=== PATIENT | male | born 1940 | race Caucasian/White ===

== ENCOUNTER 2017-03-23 02:55 | Inpatient (IN) | payer MEDICARE, OTHER ==
[2017-03-23] MEDS ORDERED: IPRATROPIUM/ALBUTEROL 0.5-2.5 MG/3 ML AMPUL NEB ONE (03:20)
[2017-03-23] MEDS ORDERED: METHYLPREDNISOLONE INJ 125 MG/2 ML SDV IV ONE (03:24)
--- NOTE | 2017-03-23 03:44 | RADIOLOGY REPORT (SQ) ---
EXAM DESCRIPTION: CHEST SINGLE VIEW COMPLETED DATE/TIME: 03/23/2017 3:33 am REASON FOR STUDY: difficulty breathing COMPARISON: None. EXAM PARAMETERS: NUMBER OF VIEWS: One view. TECHNIQUE: 2 frontal radiographic views of the chest acquired. RADIATION DOSE: NA LIMITATIONS: None. FINDINGS: LUNGS AND PLEURA: There is elevation of the left hemidiaphragm with ground-glass opacity a t the left lung base. No sizable pleural effusion or pneumothorax. MEDIASTINUM AND HILAR STRUCTURES: No obvious masses. HEART AND VASCULAR STRUCTURES: The heart is upper normal limit in size. No overt vascular congestion . BONES: Degenerative changes in the spine. HARDWARE: Surgical clips are noted at the right upper hemithorax and overlying the left clavicle. IMPRESSION: Elevation of the left hemidiaphragm with ground-glass opacity at the left lung base, may represent atelectasis or pneumonia. Radiographic followup recommended. TECHNICAL DOCUMENTATION: JOB ID: [id number] [employer]- All Rights Reserved
--- NOTE | 2017-03-23 03:51 | ER Document Report ---
ED General - General Chief Complaint: Respiratory Distress Stated Complaint: DIFFICULTY BREATHING Time Seen by Provider: 03/23/17 03:14 Notes: Patient is a 77-year-old male who presents with complaint of difficulty breathing or respiratory distress. Patient has a history of idiopathic pulmonary fibrosis. Patient says over last several days has had worsening difficulty breathing also has had subjective fevers. No vomiting. No chest pain. No diarrhea. No abdominal pain. He does still smoke. No other complaints at this time. Wears 4 L of oxygen via nasal cannula at home. He does not wear CPAP at night. He did receive breathing treatments via EMS the patient says it does not seem to make much difference in his breathing. - Related Data Allergies/Adverse Reactions: No Known Allergies Allergy (Unverified 04/30/11 14:54) Past Medical History - Social History Smoking Status: Current Every Day Smoker Frequency of alcohol use: None Drug Abuse: None Family History: Reviewed & Not Pertinent Patient has suicidal ideation: No Patient has homicidal ideation: No - Past Medical History Cardiac Medical History: Reports: Hx Hypertension Renal/ Medical History: Denies: Hx Peritoneal Dialysis Past Surgical History: Reports: Hx Orthopedic Surgery - C-Spine fusion - Immunizations Hx Diphtheria, Pertussis, Tetanus Vaccination: No Review of Systems - Review of Systems Notes: My Normal Review Basic REVIEW OF SYSTEMS: CONSTITUTIONAL : Negative fevers. EENT: Denies eye, ear, throat, or mouth pain or symptoms. Denies nasal or sinus congestion. CARDIOVASCULAR: Denies chest pain. RESPIRATORY: Difficulty breathing. GASTROINTESTINAL: Denies abdominal pain. Denies nausea, vomiting, or diarrhea. Denies constipation. Last BM: GENITOURINARY: Denies difficulty urinating, painful urination, burning, frequency, or blood in urine. MUSCULOSKELETAL: Denies neck or back pain or joint pain or swelling. SKIN: Denies rash or skin lesions. NEUROLOGICAL: Denies altered mental status or loss of consciousness. Denies headache. Denies weakness or paralysis or loss of use of either side. Denies problems with gait or speech. Denies sensory or motor loss. ALL OTHER SYSTEMS REVIEWED AND NEGATIVE. Physical Exam - Vital signs Vitals: Resp Pulse Ox 21 H 98 03/23/17 03:09 03/23/17 03:09 - Notes Notes: General Appearance: Well nourished, alert, cooperative, moderate acute distress , no obvious discomfort. Vitals: reviewed, See vital signs table. Head: no swelling or tenderness to the head Eyes: PERRL, EOMI, Conjuctiva clear Mouth: No decreasd moisture Throat: No tonsillar inflammation, Neck: Supple, no neck tenderness, Lungs: Patient has good air exchange with no wheezing but does have some mild rhonchorous breath sounds in the bases jesting pneumonia. Heart: Normal rate, Regular rythm, No murmur, no rub Abdomen: Normal BS, soft, No rigidity, No abdominal tenderness, No guarding, no rebound, Extremities: strength 5/5 in all extremities, good pulses in all extremities, no swelling or tenderness in the extremities, no edema. Skin: warm, dry, appropriate color, no rash Neuro: speech clear, oriented x 3, normal affect, responds appropriately to questions. Course - Re-evaluation Re-evalutation: 03/23/17 05:09 Patient looks well on the BiPAP. He is much improved and feels much better on BiPAP. He speaking full sentences now. Chest x-ray shows evidence of pneumonia. This is consistent with his physical exam findings. I did speak with the hospitalist, Dr. Curran, who agrees to admit the patient. Dictation of this chart was performed using voice recognition software; therefore, there may be some unintended grammatical errors. - Vital Signs Vital signs: Temp Pulse Resp BP Pulse Ox 98.6 F 31 H 160/79 H 97 03/23/17 03:17 03/23/17 04:01 03/23/17 04:01 03/23/17 04:01 - Laboratory Result Diagrams: 03/23/17 03:50 03/23/17 03:50 Laboratory results interpreted by me: 03/23/17 03:50 WBC 28.2 H RBC 3.62 L Hgb 12.6 L Hct 37.6 L MCV 104 H MCH 34.9 H RDW 16.1 H Seg Neuts % (Manual) 91 H Lymphocytes % (Manual) 4 L Monocytes % (Manual) 1 L Abs Neuts (Manual) 26.5 H - EKG Interpretation by Me Additional EKG results interpreted by me: 03/23/17 03:50 EKG is reviewed and interpreted by me. EKG shows sinus tachycardia with rate of [address] segment elevation or depression. No ischemic T-wave inversions. NE interval, QRS duration, QTc intervals are within normal range. No old EKG available for comparison at this time. Discharge - Discharge Clinical Impression: Pneumonia Qualifiers: Pneumonia type: due to unspecified organism Laterality: bilateral Lung location : unspecified part of lung Qualified Code(s): J18.9 - Pneumonia, unspecified organism Disposition: ADMITTED INPATIENT Admitting Provider: Hospitalist Unit Admitted: Telemetry
[2017-03-23 04:05] LABS: HEMATOCRIT 37.6 % (37.9-51.0); HEMOGLOBIN 12.6 g/dL (13.5-17.0); MEAN CORPUSCULAR HEMOGLOBIN 34.9 pg (27.0-33.4); MEAN CORPUSCULAR HGB CONC 33.6 g/dL (32.0-36.0); MEAN CORPUSCULAR VOLUME 104 fl (80-97); PLATELET COUNT 185 10^3/uL (150-450); RED BLOOD COUNT 3.62 10^6/uL (4.35-5.55); RED CELL DISTRIBUTION WIDTH 16.1 % (11.5-14.0); WHITE BLOOD COUNT 28.2 10^3/uL (4.0-10.5)
[2017-03-23 04:34] LABS: ALANINE AMINOTRANSFERASE 25 U/L (21-72); ALBUMIN 4.2 g/dL (3.5-5.0); ALKALINE PHOSPHATASE 78 U/L (38-126); ANION GAP 17 (5-19); ASPARTATE AMINO TRANSFERASE 32 U/L (17-59); BILIRUBIN,DIRECT 0.3 mg/dL (0.0-0.4); BILIRUBIN,TOTAL 1.1 mg/dL (0.2-1.3); BLOOD UREA NITROGEN 10 mg/dL (7-20); CARBON DIOXIDE 22 mmol/L (22-30); CHLORIDE 104 mmol/L (98-107); GLUCOSE 86 mg/dL (75-110); POTASSIUM 4.1 mmol/L (3.6-5.0); SODIUM 142.5 mmol/L (137-145); TOTAL PROTEIN 7.3 g/dL (6.3-8.2)
[2017-03-23 04:35] LABS: ABSOLUTE LYMPHOCYTES# (MANUAL) 1.4 10^3/uL (0.5-4.7); ABSOLUTE MONOCYTES # (MANUAL) 0.3 10^3/uL (0.1-1.4); ABSOLUTE NEUTROPHILS# (MANUAL) 26.5 10^3/uL (1.7-8.2); BAND NEUTROPHILS % (MANUAL) 3 % (3-5); BASOPHILS % (MANUAL) 0 % (0-2); EOSINOPHILS % (MANUAL) 0 % (0-6); LYMPHOCYTES % (MANUAL) 4 % (13-45); MONOCYTES % (MANUAL) 1 % (3-13); NUCLEATED RED BLOOD CELLS 1 /100 WBC (0); SEGMENTED NEUTROPHILS % (MAN) 91 % (42-78); TOTAL CELLS COUNTED 100
[2017-03-23 04:37] LABS: ANISOCYTOSIS 1+; OVALOCYTES SLIGHT; PLATELET COMMENT ADEQUATE; POIKILOCYTOSIS SLIGHT; STOMATOCYTES 1+; TOXIC GRANULATION 1+; TOXIC VACUOLATION PRESENT
[2017-03-23] MEDS ORDERED: PIPERACILLIN/TAZOBACTAM 3.375 GM VIAL IV ONE (04:57)
[2017-03-23] MEDS ORDERED: VANCOMYCIN HCL INJ 1000 MG VIAL IV ONE (04:58)
[2017-03-23] MEDS ORDERED: IPRATROPIUM/ALBUTEROL 0.5-2.5 MG/3 ML AMPUL NEB PRN (05:01)
[2017-03-23] MEDS ORDERED: ACETAMINOPHEN 325 MG TABLET PO PRN (05:01)
[2017-03-23] MEDS ORDERED: CHLORPHENIRAMINE MALEATE 4 MG TABLET PO ONE ×2 (05:04→09:00)
[2017-03-23] MEDS ORDERED: HYDRALAZINE HCL INJ/PF 20 MG/1 ML SDV IV PRN (05:04)
[2017-03-23] MEDS ORDERED: VANCOMYCIN HCL 0 MG in DEXTROSE 5%-WATER 250 ML IV NR (05:15)
[2017-03-23] MEDS ORDERED: NORMAL SALINE 1000 ML 1,000 ML IV PRN (05:15)
[2017-03-23] MEDS ORDERED: PIPERACILLIN/TAZOBACTAM 4.5 GM VIAL IV PRN (05:34)
[2017-03-23] MEDS ORDERED: PIPERACILLIN SODIUM/TAZOBACTAM 4.5 GM in NORMAL SALINE 100 ML IV ONE (05:45)
[2017-03-23] MEDS ORDERED: FLUTICASONE NASAL SPRAY 50 MCG/SPRY 120 SPRAY/16 GM NASL ONE (05:45)
[2017-03-23] MEDS ORDERED: DILTIAZEM HCL 60 MG TABLET PO ONE (05:49)
--- NOTE | 2017-03-23 06:08 | PDOC H&P ---
History of Present Illness Admission Date/PCP: 03/23/17 05:12 Patient complains of: Shortness of breath and nonproductive cough History of Present Illness: KEO SESAY is a 77 year old male with past medical history of chronic lower extremity venous stasis, idiopathic pulmonary fibrosis with oxygen dependence and tobacco dependence. Patient presents with several days of rhinorrhea developing shortness of breath, subjective fever and nonproductive cough. In the emergency room is found to be tachypneic, hypoxic requiring 4 L of oxygen, leukocytosis of 26,000, fever and chest x-ray with left base infiltrate. He started on empiric antibiotics, albuterol and Atrovent and referred to the hospitalist for admission. Patient denies recent pneumonia, antibiotics or infectious contacts. He denies recent change of medications. Past Medical History Cardiac Medical History: Reports: Hypertension Pulmonary Medical History: Reports: Other - Pulmonary fibrosis EENT Medical History: Reports: None Neurological Medical History: Reports: None Endocrine Medical History: Reports: None Renal/ Medical History: Reports: None Malignancy Medical History: Reports: None GI Medical History: Reports: None Musculoskeltal Medical History: Reports: None Skin Medical History: Reports: None Psychiatric Medical History: Reports: None Traumatic Medical History: Reports: None Hematology: Reports: None Infectious Medical History: Reports: None Past Surgical History Past Surgical History: Reports: Orthopedic Surgery - C-Spine fusion Social History Information Source: Patient Smoking Status: Current Every Day Smoker Frequency of Alcohol Use: None Hx Recreational Drug Use: No Hx Prescription Drug Abuse: No - Advance Directive Resuscitation Status: Full Code Family History Family History: Hypertension Parental Family History Reviewed: Yes Children Family History Reviewed: Yes Sibling(s) Family History Reviewed.: Yes Medication/Allergy Home Medications: Alfuzosin HCl [Uroxatral] 10 mg PO DAILY 04/30/11 Alprazolam [Xanax] 1 mg PO BID 04/30/11 Amlodipine Besylate [Norvasc 2.5 mg Tablet] 2.5 mg PO DAILY 04/30/11 Aripiprazole [Abilify] 10 mg PO BID 04/30/11 Aspirin [Aspirin 81 mg Chewable Tablet] 81 mg PO DAILY 04/30/11 Benazepril HCl [Lotensin 10 Mg Tablet] 10 mg PO DAILY 04/30/11 Calcium Citrate/Vitamin D3 [Calcium Citrate - Vit D Caplet] 1 each PO DAILY 12/31 Cyclobenzaprine HCl [Flexeril 10 Mg Tablet] 10 mg PO DAILY 04/30/11 Ergocalciferol (Vitamin D2) [Vitamin D] 50,000 unit PO ONCE 04/30/11 Escitalopram Oxalate [Lexapro] 20 mg PO DAILY 04/30/11 Fesoterodine Fumarate [Toviaz] 8 mg PO DAILY 04/30/11 Finasteride 5 mg PO DAILY 04/30/11 Lidocaine [Lidoderm 5% (700 Mg) Transdermal Patch] 1 patch TP DAILY 04/30/11 Oxycodone HCl/Acetaminophen [Percocet 7.5-325 Mg Tablet] 1 each PO Q4 PRN Primidone 50 mg PO BID 04/30/11 Allergies/Adverse Reactions: No Known Allergies Allergy (Unverified 04/30/11 14:54) Review of Systems Constitutional: ABSENT: chills, fever(s), headache(s), weight gain, weight loss Eyes: ABSENT: visual disturbances Ears: ABSENT: hearing changes Cardiovascular: ABSENT: chest pain, dyspnea on exertion, edema, orthropnea, palpitations Respiratory: ABSENT: cough, hemoptysis Gastrointestinal: ABSENT: abdominal pain, constipation, diarrhea, hematemesis, hematochezia, nausea, vomiting Genitourinary: ABSENT: dysuria, hematuria Musculoskeletal: ABSENT: joint swelling Integumentary: ABSENT: rash, wounds Neurological: ABSENT: abnormal gait, abnormal speech, confusion, dizziness, focal weakness, syncope Psychiatric: ABSENT: anxiety, depression, homidical ideation, suicidal ideation Endocrine: ABSENT: cold intolerance, heat intolerance, polydipsia, polyuria Hematologic/Lymphatic: ABSENT: easy bleeding, easy bruising Physical Exam Vital Signs: Temp Pulse Resp BP Pulse Ox 98.6 F 31 H 160/79 H 97 03/23/17 03:17 03/23/17 04:01 03/23/17 04:01 03/23/17 04:01 General appearance: PRESENT: cooperative, mild distress, obese Head exam: PRESENT: atraumatic, normocephalic Eye exam: PRESENT: conjunctiva pink, EOMI, PERRLA. ABSENT: scleral icterus Ear exam: PRESENT: normal external ear exam Mouth exam: PRESENT: moist, tongue midline Neck exam: ABSENT: carotid bruit, JVD, lymphadenopathy, thyromegaly Respiratory exam: PRESENT: accessory muscle use, crackles, prolonged expiratory phas, rales, retraction, tachypnea Cardiovascular exam: PRESENT: RRR, tachycardia. ABSENT: diastolic murmur, rubs , systolic murmur Pulses: PRESENT: normal dorsalis pedis pul Vascular exam: PRESENT: normal capillary refill GI/Abdominal exam: PRESENT: normal bowel sounds, soft. ABSENT: distended, guarding, mass, organolmegaly, rebound, tenderness Rectal exam: PRESENT: deferred Extremities exam: PRESENT: +2 edema. ABSENT: calf tenderness, clubbing, pedal edema Results Impressions: Chest X-Ray 03/23/17 03:19 IMPRESSION: Elevation of the left hemidiaphragm with ground-glass opacity at the left lung base, may represent atelectasis or pneumonia. Radiographic followup recommended. Assessment & Plan - Diagnosis (1) Pneumonia Qualifiers: Pneumonia type: due to unspecified organism Laterality: bilateral Lung location: unspecified part of lung Qualified Code(s): J18.9 - Pneumonia, unspecified organism Is this a current diagnosis for this admission?: Yes Plan: Pneumonia care set deployed, albuterol and Atrovent, incentive spirometry and flutter valve, vancomycin and Zosyn. Follow-up blood culture and CBC (2) Pulmonary fibrosis Is this a current diagnosis for this admission?: Yes Plan: Supportive measures, consider steroids. (3) Tobacco dependency Is this a current diagnosis for this admission?: Yes Plan: Tobacco Dependence patient received tobacco cessation counseling and offered nicotine replacement options - Time Time Spent: 50 to 70 Minutes - Inpatient Certification Medical Necessity: Need Close Monitoring Due to Risk of Patient Decompensation
[2017-03-23] MEDS: HEPARIN SOD (PORCINE) 5,000 UNIT/ML 1 ML SYRINGE SUBCUT SCH ×3 (06:40→21:20)
[2017-03-23] MEDS: IPRATROPIUM/ALBUTEROL 0.5-2.5 MG/3 ML AMPUL NEB SCH ×3 (08:01→19:49)
--- NOTE | 2017-03-23 08:03 | EKG REPORT ---
SEVERITY:- BORDERLINE ECG - SINUS TACHYCARDIA LOW VOLTAGE IN FRONTAL LEADS : Confirmed by: Juaquin Plaza MD 23-Mar-2017 08:03:29
[2017-03-23] MEDS: DILTIAZEM HCL 30 MG TABLET PO SCH ×3 (09:59→21:21)
[2017-03-23] MEDS: LANSOPRAZOLE 30 MG TAB.RAP.DR PO SCH ×2 (09:59→17:06)
[2017-03-23] MEDS: GUAIFENESIN 600 MG TABLET.SA PO SCH ×2 (09:59→21:20)
[2017-03-23] MEDS ORDERED: CYCLOBENZAPRINE HCL 10 MG TABLET PO SCH (10:00)
[2017-03-23] MEDS ORDERED: ASPIRIN 81 MG TABLET, CHEWABLE PO SCH (10:00)
[2017-03-23] MEDS ORDERED: FINASTERIDE 5 MG TABLET PO SCH (10:00)
[2017-03-23] MEDS ORDERED: (PENDING PHARMACY ID) (Aripiprazole [Abilify 10 Mg Tablet] 10 MG) PO SCH (10:00)
[2017-03-23] MEDS ORDERED: PRIMIDONE 50 MG TABLET PO SCH (10:00)
[2017-03-23] MEDS ORDERED: ALPRAZOLAM 0.5 MG PO SCH (10:00)
[2017-03-23] MEDS ORDERED: BENAZEPRIL HCL 10 MG TABLET PO SCH (10:00)
[2017-03-23] MEDS: VANCOMYCIN HCL 750 MG in DEXTROSE 5%-WATER 250 ML IV SCH ×2 (10:17→18:39)
[2017-03-23 10:37] LABS: A TYPE INFLUENZA AG NEGATIVE (NEGATIVE)
[2017-03-23 10:38] LABS: B INFLUENZA AG NEGATIVE (NEGATIVE)
[2017-03-23] MEDS ORDERED: CYCLOBENZAPRINE HCL 10 MG TABLET PO ONE (11:00)
[2017-03-23] MEDS ORDERED: ARIPIPRAZOLE 5 MG TABLET PO ONE (11:00)
[2017-03-23] MEDS ORDERED: ASPIRIN 325 MG TABLET, ENT COATED PO ONE (11:00)
[2017-03-23] MEDS ORDERED: FINASTERIDE 5 MG TABLET PO ONE (11:00)
[2017-03-23] MEDS ORDERED: ESCITALOPRAM OXALATE 10 MG TABLET PO ONE (11:00)
[2017-03-23] MEDS ORDERED: LIDOCAINE 2% URO-JET 5 ML KIT MM ONE (13:21)
[2017-03-23] MEDS: PIPERACILLIN SODIUM/TAZOBACTAM 4.5 GM in NORMAL SALINE 100 ML IV SCH ×2 (13:40→17:01)
[2017-03-23] MEDS: PRIMIDONE 50 MG TABLET PO SCH ×2 (17:06→21:21)
--- NOTE | 2017-03-23 18:50 | Progress Note ---
Provider Note Provider Note: THis is a 77 yo man with IPF who is admitted to hospitalist for PNA. He is feelign better but still very dyspneic, COugh and no sputum. Requiring up to 8 L of O2, sonia if he moves at all. No other CP, no fever of chills today, feels weak. No abd pain or nausea or emesis. On exam he is pleasant, tachypneic, 8L NC O2, poor air movement with scattered mild wheezing and bilbasilar crackles. ABd soft NT and ND, chronic LE edema bilat. A/P: He is showing slow imrpovement with current care. Will cont the ABX as ordered by admitting MD, cont brochodilators, will add a few days of prednisone in case there is a COPD component. I have placed guerrero cath as he is extrememly dyspneic and becomes more hypoxemic with any movement. Chk labs in the am.
[2017-03-23] MEDS: FLUTICASONE NASAL SPRAY 50 MCG/SPRY 120 SPRAY/16 GM NASL SCH (21:20)
[2017-03-23] MEDS: OXYCODONE HCL IR 5 MG TABLET PO SCH (21:20)
[2017-03-23] MEDS: GUAIFENESIN SYRP 200 MG/10 ML UDC PO PRN (21:20)
[2017-03-24] MEDS ORDERED: OXYCODONE HCL IR 5 MG TABLET PO SCH
[2017-03-24] MEDS: PIPERACILLIN SODIUM/TAZOBACTAM 4.5 GM in NORMAL SALINE 100 ML IV SCH ×3 (00:52→16:23)
[2017-03-24] MEDS: IPRATROPIUM/ALBUTEROL 0.5-2.5 MG/3 ML AMPUL NEB SCH ×4 (01:25→20:03)
[2017-03-24] MEDS: VANCOMYCIN HCL 750 MG in DEXTROSE 5%-WATER 250 ML IV SCH ×2 (02:27→10:09)
[2017-03-24] MEDS: OXYCODONE HCL IR 5 MG TABLET PO SCH ×4 (02:27→21:36)
[2017-03-24] MEDS: DILTIAZEM HCL 30 MG TABLET PO SCH ×4 (04:49→21:36)
[2017-03-24] MEDS: PRIMIDONE 50 MG TABLET PO SCH ×3 (05:52→21:36)
[2017-03-24] MEDS: HEPARIN SOD (PORCINE) 5,000 UNIT/ML 1 ML SYRINGE SUBCUT SCH ×3 (05:52→21:36)
[2017-03-24 08:00] LABS: MEAN CORPUSCULAR HGB CONC 33.1 g/dL (32.0-36.0); MEAN CORPUSCULAR VOLUME 106 fl (80-97); PLATELET COUNT 166 10^3/uL (150-450); RED BLOOD COUNT 2.93 10^6/uL (4.35-5.55); RED CELL DISTRIBUTION WIDTH 16.5 % (11.5-14.0); WHITE BLOOD COUNT 23.3 10^3/uL (4.0-10.5)
[2017-03-24 08:12] LABS: ANION GAP 6 (5-19); BLOOD UREA NITROGEN 18 mg/dL (7-20); CALCIUM 8.3 mg/dL (8.4-10.2); CARBON DIOXIDE 31 mmol/L (22-30); CHLORIDE 99 mmol/L (98-107); GLUCOSE 140 mg/dL (75-110); POTASSIUM 4.1 mmol/L (3.6-5.0); SODIUM 135.8 mmol/L (137-145)
[2017-03-24 08:54] LABS: ABSOLUTE LYMPHOCYTES# (MANUAL) 1.2 10^3/uL (0.5-4.7); ABSOLUTE MONOCYTES # (MANUAL) 1.4 10^3/uL (0.1-1.4); ABSOLUTE NEUTROPHILS# (MANUAL) 20.7 10^3/uL (1.7-8.2); BAND NEUTROPHILS % (MANUAL) 6 % (3-5); BASOPHILS % (MANUAL) 0 % (0-2); EOSINOPHILS % (MANUAL) 0 % (0-6); LYMPHOCYTES % (MANUAL) 5 % (13-45); MONOCYTES % (MANUAL) 6 % (3-13); SEGMENTED NEUTROPHILS % (MAN) 83 % (42-78); TOTAL CELLS COUNTED 100
[2017-03-24 08:55] LABS: ANISOCYTOSIS 1+; PLATELET COMMENT ADEQUATE; TOXIC GRANULATION SLIGHT
[2017-03-24 08:57] LABS: HEMOGLOBIN 10.3 g/dL (13.5-17.0)
[2017-03-24] MEDS: ESCITALOPRAM OXALATE 10 MG TABLET PO SCH (09:06)
[2017-03-24] MEDS: FINASTERIDE 5 MG TABLET PO SCH (09:06)
[2017-03-24] MEDS: LANSOPRAZOLE 30 MG TAB.RAP.DR PO SCH ×2 (09:06→17:00)
[2017-03-24] MEDS: ASPIRIN 325 MG TABLET, ENT COATED PO SCH (09:06)
[2017-03-24] MEDS: PREDNISONE 20 MG TABLET PO SCH ×2 (09:06→17:00)
[2017-03-24] MEDS: FLUTICASONE NASAL SPRAY 50 MCG/SPRY 120 SPRAY/16 GM NASL SCH ×2 (09:06→21:36)
[2017-03-24] MEDS: GUAIFENESIN 600 MG TABLET.SA PO SCH ×2 (09:07→21:36)
[2017-03-24] MEDS: LIDOCAINE 5% (700 MG) TRANSDERMAL ADH..PATCH TOP SCH (09:07)
[2017-03-24] MEDS ORDERED: ARIPIPRAZOLE 5 MG TABLET PO SCH (10:00)
[2017-03-24] MEDS ORDERED: CYCLOBENZAPRINE HCL 10 MG TABLET PO SCH (10:00)
[2017-03-24] MEDS ORDERED: (PENDING PHARMACY ID) (Aripiprazole [Abilify 10 Mg Tablet] 10 MG) PO SCH (10:00)
[2017-03-24 11:07] LABS: VANCOMYCIN,TROUGH 13.6 ug/mL (5.0-20.0)
[2017-03-24] MEDS: GUAIFENESIN SYRP 200 MG/10 ML UDC PO PRN (16:15)
--- NOTE | 2017-03-24 16:37 | PDOC PROGRESS REPORT ---
Subjective Progress Note for:: 03/24/17 Subjective:: Doing better today. Was on 3.5L O2 at home. Usually on 6L at home however is more active. Continues to cough. Denies fevers, chills, CP, NV. Feeling better today and thinks he may be ready to go home soon. Reason For Visit: PULMONARY FIBROSIS, PNEUMONIA Physical Exam Vital Signs: Temp Pulse Resp BP Pulse Ox 97.2 F 74 22 H 94/74 L 95 03/24/17 11:30 03/24/17 14:42 03/24/17 14:42 03/24/17 11:30 03/24/17 14:42 Intake & Output 03/23/17 03/24/17 03/25/17 06:59 06:59 06:59 Intake Total 1865 840 Output Total 1050 600 Balance 815 240 Weight 84.8 kg General appearance: PRESENT: no acute distress, well-nourished Head exam: PRESENT: atraumatic Mouth exam: PRESENT: moist Respiratory exam: PRESENT: crackles - Inspiratory, wheezes - Diffuse Cardiovascular exam: PRESENT: RRR. ABSENT: systolic murmur, tachycardia GI/Abdominal exam: PRESENT: soft. ABSENT: distended, tenderness Neurological exam: PRESENT: alert, awake, CN II-XII grossly intact Psychiatric exam: ABSENT: agitated Skin exam: PRESENT: warm Results Laboratory Results: 03/24/17 06:20 03/24/17 06:20 03/24/17 03/24/17 06:20 06:20 WBC 23.3 H RBC 2.93 L Hgb 10.3 L D Hct 31.0 L MCV 106 H MCH 35.0 H MCHC 33.1 RDW 16.5 H Plt Count 166 Seg Neutrophils % Not Reportable Lymphocytes % Not Reportable Monocytes % Not Reportable Eosinophils % Not Reportable Basophils % Not Reportable Absolute Neutrophils Not Reportable Absolute Lymphocytes Not Reportable Absolute Monocytes Not Reportable Absolute Eosinophils Not Reportable Absolute Basophils Not Reportable Sodium 135.8 L Potassium 4.1 Chloride 99 Carbon Dioxide 31 H Anion Gap 6 BUN 18 Creatinine 0.84 Est GFR ( Amer) > 60 Est GFR (Non-Af Amer) > 60 Glucose 140 H Calcium 8.3 L 03/23/17 12:54 Troponin I 0.032 Impressions: Chest X-Ray 02/02/18 03:19 IMPRESSION: Elevation of the left hemidiaphragm with ground-glass opacity at the left lung base, may represent atelectasis or pneumonia. Radiographic followup recommended. Assessment & Plan - Diagnosis (1) Pneumonia Qualifiers: Pneumonia type: due to unspecified organism Laterality: bilateral Lung location: unspecified part of lung Qualified Code(s): J18.9 - Pneumonia, unspecified organism Is this a current diagnosis for this admission?: Yes Plan: Improving, decreased O2 requirement - Blood cultures NGTD at 24 hours - Discontinued Vanc/Zosyn, started Levaquin PO 750mg daily - Continue bronchodilators and prednisone 40mg (total) for 5 day total course - PRN mucinex (2) Pulmonary fibrosis Is this a current diagnosis for this admission?: Yes Plan: - Long standing history, CTM (3) Tobacco dependency Is this a current diagnosis for this admission?: Yes Plan: Counseled importance of not smoking - Time Time Spent with patient: Less than 15 minutes Smoking Cessation Education: 3 to 10 minutes Anticipated discharge: Home, Home with Homehealth Within: within 24 hours
[2017-03-24] MEDS ORDERED: LEVOFLOXACIN 750 MG TABLET PO ONE (17:00)
[2017-03-25] MEDS: IPRATROPIUM/ALBUTEROL 0.5-2.5 MG/3 ML AMPUL NEB SCH ×2 (01:58→08:55)
[2017-03-25] MEDS: OXYCODONE HCL IR 5 MG TABLET PO SCH ×2 (03:25→08:37)
[2017-03-25] MEDS: DILTIAZEM HCL 30 MG TABLET PO SCH ×2 (04:47→09:11)
[2017-03-25 05:01] LABS: HEMATOCRIT 32.9 % (37.9-51.0); HEMOGLOBIN 10.8 g/dL (13.5-17.0); MEAN CORPUSCULAR HGB CONC 32.7 g/dL (32.0-36.0); MEAN CORPUSCULAR VOLUME 107 fl (80-97); PLATELET COUNT 187 10^3/uL (150-450); RED BLOOD COUNT 3.07 10^6/uL (4.35-5.55); RED CELL DISTRIBUTION WIDTH 16.6 % (11.5-14.0); WHITE BLOOD COUNT 15.5 10^3/uL (4.0-10.5)
[2017-03-25 05:21] LABS: ABSOLUTE LYMPHOCYTES# (MANUAL) 1.1 10^3/uL (0.5-4.7); ABSOLUTE MONOCYTES # (MANUAL) 0.5 10^3/uL (0.1-1.4); BAND NEUTROPHILS % (MANUAL) 1 % (3-5); BASOPHILS % (MANUAL) 0 % (0-2); EOSINOPHILS % (MANUAL) 0 % (0-6); LYMPHOCYTES % (MANUAL) 7 % (13-45); MONOCYTES % (MANUAL) 3 % (3-13); SEGMENTED NEUTROPHILS % (MAN) 89 % (42-78); TOTAL CELLS COUNTED 100
[2017-03-25 05:23] LABS: ANISOCYTOSIS 1+; PLATELET COMMENT ADEQUATE; PLATELET LARGE PRESENT; TOXIC GRANULATION 1+
[2017-03-25] MEDS: HEPARIN SOD (PORCINE) 5,000 UNIT/ML 1 ML SYRINGE SUBCUT SCH (06:16)
[2017-03-25] MEDS: PRIMIDONE 50 MG TABLET PO SCH (06:16)
[2017-03-25] MEDS: FINASTERIDE 5 MG TABLET PO SCH (09:10)
[2017-03-25] MEDS: ESCITALOPRAM OXALATE 10 MG TABLET PO SCH (09:10)
[2017-03-25] MEDS: LANSOPRAZOLE 30 MG TAB.RAP.DR PO SCH (09:11)
[2017-03-25] MEDS: GUAIFENESIN 600 MG TABLET.SA PO SCH (09:11)
[2017-03-25] MEDS: PREDNISONE 20 MG TABLET PO SCH (09:11)
[2017-03-25] MEDS: ASPIRIN 325 MG TABLET, ENT COATED PO SCH (09:11)
[2017-03-25] MEDS: FLUTICASONE NASAL SPRAY 50 MCG/SPRY 120 SPRAY/16 GM NASL SCH (09:12)
[2017-03-25] MEDS: LIDOCAINE 5% (700 MG) TRANSDERMAL ADH..PATCH TOP SCH (09:12)
[2017-03-25] MEDS ORDERED: LEVOFLOXACIN 750 MG TABLET PO SCH (10:00)
[2017-03-25 12:08] VITALS: BP 155/72
--- NOTE | 2017-03-25 18:44 | PDOC DISCHARGE SUMMARY ---
General - Admit/Disc Date/PCP Admission Date/Primary Care Provider: 03/23/17 05:12 Discharge Date: 03/25/17 - Discharge Diagnosis (1) Pneumonia Is this a current diagnosis for this admission?: Yes Summary: Improved, decreased O2 requirement, now at baseline - Blood cultures NGTD at 24 hours - Previously on Vanc/Zosyn, continue Levaquin PO 750mg daily (7 additional days0 to complete 10 day course, script given - Script for prednisone 20mg BID for 3 days additionally, 5 days total course - Home health RN ordered to help with home O2 requirements and PT (2) Pulmonary fibrosis Is this a current diagnosis for this admission?: Yes Summary: At baseline, follows up with Real Estate Utilization Officer in May 2017 (3) Tobacco dependency Is this a current diagnosis for this admission?: Yes - Additional Information Resuscitation Status: Full Code Discharge Diet: Cardiac Discharge Activity: Activity As Tolerated Prescriptions: Levofloxacin [Levaquin 750 mg Tablet] 750 mg PO DAILY 7 Days #7 tablet Prednisone [Deltasone 20 mg Tablet] 20 mg PO BID 3 Days #6 tablet Home Medications: Albuterol Sulfate [Proair HFA] 2 puff IN Q4HP PRN 03/23/17 Alfuzosin HCl [Alfuzosin HCl ER] 10 mg PO DAILY 03/23/17 Amlodipine Besylate [Norvasc 2.5 mg Tablet] 2.5 mg PO DAILY 03/23/17 Aripiprazole [Abilify 10 mg Tablet] 10 mg PO DAILY 03/23/17 Aspirin [Ecotrin 325 mg EC Tablet] 325 mg PO DAILY 03/23/17 Cholecalciferol (Vitamin D3) [Vitamin D3 5000 unit Capsule] 5,000 unit PO DAILY 03/23/17 Clobetasol Propionate/Emoll [Clobetasol Emollient 0.05% Crm] 1 applic TOP DAILY 03/23/17 Cyclobenzaprine HCl [Flexeril 10 mg Tablet] 10 mg PO DAILY 03/23/17 Escitalopram Oxalate [Lexapro 10 mg Tablet] 30 mg PO DAILY 03/23/17 Finasteride [Proscar 5 mg Tablet] 5 mg PO DAILY 03/23/17 Hollie Root [Hollie] 1,100 mg PO BID 03/23/17 Lidocaine [Lidoderm 5% (700 mg) Transdermal Patch] 3 patch TD DAILY 03/23/17 Loperamide HCl [Loperamide] 2 tab PO DAILYP PRN 03/23/17 Multivitamin [Multiple Vitamins] 1 tab PO DAILY 03/23/17 Nintedanib Esylate [Ofev] 150 mg PO BID 03/23/17 Oxycodone HCl [Oxycodone HCl 10 MG Tablet] 10 mg PO Q4 03/23/17 Primidone [Mysoline] 50 mg PO TID 03/23/17 Solifenacin Succinate [Vesicare] 10 mg PO DAILY 03/23/17 Tiotropium [place] [Spiriva Respimat] 2 puff IH DAILY 03/23/17 Levofloxacin [Levaquin 750 mg Tablet] 750 mg PO DAILY 7 Days #7 tablet 03/25/17 Prednisone [Deltasone 20 mg Tablet] 20 mg PO BID 3 Days #6 tablet 03/25/17 History of Present Illness Patient complains of: SOB and increaesed O2 requirement History of Present Illness: KEO SESAY is a 77 year old male with past medical history of chronic lower extremity venous stasis, idiopathic pulmonary fibrosis with oxygen dependence and tobacco dependence. Patient presents with several days of rhinorrhea developing shortness of breath, subjective fever and nonproductive cough. In the emergency room is found to be tachypneic, hypoxic requiring 4 L of oxygen, leukocytosis of 26,000, fever and chest x-ray with left base infiltrate. He started on empiric antibiotics, albuterol and Atrovent and referred to the hospitalist for admission. Patient denies recent pneumonia, antibiotics or infectious contacts. He denies recent change of medications. Physical Exam Vital Signs: Temp Pulse Resp BP Pulse Ox 97.3 F 76 24 H 155/72 H 94 03/25/17 12:37 03/25/17 12:37 03/25/17 12:37 03/25/17 12:37 03/25/17 12:37 Intake & Output 03/24/17 03/25/17 03/26/17 06:59 06:59 06:59 Intake Total 1865 2580 600 Output Total 1050 1910 1300 Balance 815 670 -700 Weight 84.8 kg 84.8 kg General appearance: PRESENT: no acute distress, well-developed, well-nourished Mouth exam: PRESENT: moist Respiratory exam: PRESENT: crackles, unlabored, other - On 3L supplemental O2 Cardiovascular exam: PRESENT: RRR. ABSENT: tachycardia GI/Abdominal exam: PRESENT: soft Musculoskeletal exam: PRESENT: full ROM Neurological exam: PRESENT: alert, awake, CN II-XII grossly intact Psychiatric exam: ABSENT: anxious Skin exam: PRESENT: dry, warm Results Laboratory Results: 03/25/17 03:52 03/24/17 06:20 03/25/17 03:52 WBC 15.5 H RBC 3.07 L Hgb 10.8 L Hct 32.9 L MCV 107 H MCH 35.0 H MCHC 32.7 RDW 16.6 H Plt Count 187 Seg Neutrophils % Not Reportable Lymphocytes % Not Reportable Monocytes % Not Reportable Eosinophils % Not Reportable Basophils % Not Reportable Absolute Neutrophils Not Reportable Absolute Lymphocytes Not Reportable Absolute Monocytes Not Reportable Absolute Eosinophils Not Reportable Absolute Basophils Not Reportable 03/23/17 12:54 Troponin I 0.032 Impressions: Chest X-Ray 03/23/17 03:19 IMPRESSION: Elevation of the left hemidiaphragm with ground-glass opacity at the left lung base, may represent atelectasis or pneumonia. Radiographic followup recommended.
== END 2017-03-25 13:36 | disposition home health service (06) | DRG 195 ==
LOC: ER 02:55 → EH 05:12 → 5 13:47
PROVIDERS: ADMIT Internal Medicine; ATTEND Internal Medicine
PROC: 5A09457 Assistance with Respiratory Ventilation, 24-96 Consecutive Hours, Continuous Positive Airway Pressure (ICD-10-PCS; principal; 2017-03-23)
DX: J18.9 Pneumonia, unspecified organism (principal); J84.112 Idiopathic pulmonary fibrosis; F17.200 Nicotine dependence, unspecified, uncomplicated; R09.02 Hypoxemia; I10 Essential (primary) hypertension; I87.8 Other specified disorders of veins; Z99.81 Dependence on supplemental oxygen; Z82.49 Family history of ischemic heart disease and other diseases of the circulatory system; Z79.82 Long term (current) use of aspirin; Z79.899 Other long term (current) drug therapy; Z71.6 Tobacco abuse counseling
CPT/HCPCS: 36415; 71045; 80048; 80053; 80202; 84484; 85025; 87040; 87804; 93005; 93010; 94660; 94799; 99285; J1644; J2543; J2930; J3370; J3490; J7030; J7060; J7512; J7620

== ENCOUNTER 2018-11-17 12:05 | Emergency (ER) | payer MEDICARE, OTHER ==
--- NOTE | 2018-11-17 12:31 | ER Document Report ---
ED Medical Screen (RME) - General Chief Complaint: Foot Pain Stated Complaint: LEFT FOOT PAIN Time Seen by Provider: 11/17/18 12:29 Primary Care Provider: NIDA COE MD [Primary Care Provider] - Follow up as needed Information source: Patient Notes: Patient presents complaining of left foot pain. Patient denies any known injury. Patient states that he has pain to the dorsal aspect of the left foot. Patient states he is unable to walk due to the pain. hx: Idiopathic pulmonary fibrosis, depression, PTSD, hypertension I have greeted and performed a rapid initial assessment of this patient. A comprehensive ED assessment and evaluation of the patient, analysis of test results and completion of the medical decision making process will be conducted by additional ED providers. TRAVEL OUTSIDE OF THE [place] IN LAST 30 DAYS: No - Related Data Allergies/Adverse Reactions: No Known Allergies Allergy (Verified 11/17/18 12:22) Past Medical History - Past Medical History Cardiac Medical History: Reports: Hx Hypertension Renal/ Medical History: Denies: Hx Peritoneal Dialysis Psychiatric Medical History: Reports: Hx Depression Past Surgical History: Reports: Hx Orthopedic Surgery - C-Spine fusion - Immunizations Hx Diphtheria, Pertussis, Tetanus Vaccination: No History of Influenza Vaccine for 11/2016 - 04/2017 Season: Yes Influenza Administration Date for 11/2016 - 04/2017 Season: 11/19/16 Physical Exam - Vital signs Vitals: Temp Pulse Resp BP Pulse Ox 99.6 F 85 20 121/53 L 100 11/17/18 12:05 11/17/18 12:05 11/17/18 12:05 11/17/18 12:05 11/17/18 12:05 - General Notes: Left foot tenderness to dorsal aspect of midfoot area, 2+ dorsalis pedis pulse Course - Vital Signs Vital signs: Temp Pulse Resp BP Pulse Ox 99.6 F 85 20 121/53 L 100 11/17/18 12:05 11/17/18 12:05 11/17/18 12:05 11/17/18 12:05 11/17/18 12:05 Doctor's Discharge - Discharge Referrals: NIDA COE MD [Primary Care Provider] - Follow up as needed
[2018-11-17 14:17] LABS: ABSOLUTE LYMPHOCYTES (AUTO) 0.9 10^3/uL (0.5-4.7); ABSOLUTE MONOCYTES (AUTO) 0.9 10^3/uL (0.1-1.4); ABSOLUTE NEUT (AUTO) 5.7 10^3/uL (1.7-8.2); BASOPHILS % (AUTO) 0.4 % (0-2); EOSINOPHILS % (AUTO) 0.3 % (0-6); HEMATOCRIT 30.8 % (37.9-51.0); HEMOGLOBIN 10.4 g/dL (13.5-17.0); LYMPHOCYTES % (AUTO) 11.8 % (13-45); MEAN CORPUSCULAR HEMOGLOBIN 35.8 pg (27.0-33.4); MEAN CORPUSCULAR HGB CONC 33.9 g/dL (32.0-36.0); MEAN CORPUSCULAR VOLUME 106 fl (80-97); MONOCYTES % (AUTO) 12.4 % (3-13); PLATELET COUNT 152 10^3/uL (150-450); RED BLOOD COUNT 2.91 10^6/uL (4.35-5.55); SEGMENTED NEUTROPHILS % (AUTO) 75.1 % (42-78); TOTAL CELLS COUNTED % (AUTO) 100 %; WHITE BLOOD COUNT 7.6 10^3/uL (4.0-10.5)
[2018-11-17 14:29] LABS: ALBUMIN 3.9 g/dL (3.5-5.0); ALKALINE PHOSPHATASE 78 U/L (38-126); ANION GAP 8 (5-19); ASPARTATE AMINO TRANSFERASE 25 U/L (17-59); BILIRUBIN,DIRECT 0.2 mg/dL (0.0-0.4); BILIRUBIN,TOTAL 0.7 mg/dL (0.2-1.3); BLOOD UREA NITROGEN 21 mg/dL (7-20); CALCIUM 9.1 mg/dL (8.4-10.2); CARBON DIOXIDE 35 mmol/L (22-30); CHLORIDE 87 mmol/L (98-107); GLUCOSE 123 mg/dL (75-110); POTASSIUM 3.9 mmol/L (3.6-5.0); TOTAL PROTEIN 7.5 g/dL (6.3-8.2)
--- NOTE | 2018-11-17 14:57 | RADIOLOGY REPORT (SQ) ---
EXAM DESCRIPTION: FOOT LEFT COMPLETE COMPLETED DATE/TIME: 11/17/2018 2:42 pm REASON FOR STUDY: L foot pain COMPARISON: None. NUMBER OF VIEWS: Three views. TECHNIQUE: AP, lateral and oblique radiographic images acquired of the left foot. LIMITATIONS: None. FINDINGS: MINERALIZATION: Normal. BONES: No acute fracture or dislocation. No worrisome bone lesions. JOINTS: No effusions. SOFT TISSUES: No soft tissue swelling. No foreign body. OTHER: No other significant finding. IMPRESSION: NEGATIVE STUDY OF THE LEFT FOOT. NO RADIOGRAPHIC EVIDENCE OF ACUTE INJURY. TECHNICAL DOCUMENTATION: JOB ID: [id number] [employer]- All Rights Reserved Reading location - IP/workstation name: [email or web address]
[2018-11-17] MEDS ORDERED: COLCHICINE 0.6 MG TABLET PO ONE (17:20)
--- NOTE | 2018-11-17 17:51 | ER Document Report ---
ED General - General Chief Complaint: Foot Pain Stated Complaint: LEFT FOOT PAIN Time Seen by Provider: 11/17/18 12:29 Primary Care Provider: NIDA COE MD [Primary Care Provider] - Follow up as needed Notes: 78-year-old male presents emergency department complaining of left foot pain onset at 1 AM this morning. States that worsens with walking and any movement. Denies any history of injury, denies any fevers, denies any gout. Denies any recent change in medication. TRAVEL OUTSIDE OF THE [place] IN LAST 30 DAYS: No - Related Data Allergies/Adverse Reactions: No Known Allergies Allergy (Verified 11/17/18 12:22) Past Medical History - General Information source: Patient - Social History Smoking Status: Former Smoker Frequency of alcohol use: Social Drug Abuse: None Family History: Hypertension Patient has suicidal ideation: No Patient has homicidal ideation: No - Past Medical History Cardiac Medical History: Reports: Hx Hypertension Renal/ Medical History: Denies: Hx Peritoneal Dialysis Psychiatric Medical History: Reports: Hx Depression Past Surgical History: Reports: Hx Orthopedic Surgery - C-Spine fusion - Immunizations Hx Diphtheria, Pertussis, Tetanus Vaccination: No Hx Pneumococcal Vaccination: 11/20/15 Review of Systems - Review of Systems Constitutional: No symptoms reported Musculoskeletal: See HPI Skin: Change in color - Red -: Yes All other systems reviewed and negative Physical Exam - Vital signs Vitals: Temp Pulse Resp BP Pulse Ox 99.6 F 85 20 121/53 L 100 11/17/18 12:05 11/17/18 12:05 11/17/18 12:05 11/17/18 12:05 11/17/18 12:05 Interpretation: Normal - Notes Notes: GENERAL: Alert, interacts well. No acute distress. HEAD: Normocephalic, atraumatic EYES: Pupils equal, round and reactive to light, extraocular movements intact. ENT: Oral mucosa moist, tongue midline. NECK: Full range of motion, supple, trachea midline. LUNGS: On normal 8 L home O2 via nasal cannula, no respiratory distress compared to baseline. EXTREMITIES: Moves all 4 extremities spontaneously, minimal swelling of the left foot, erythema across the dorsal aspect of the left foot and ankle, it does not extend to the toes, it is over the lateral malleolus, exquisitely tender to even light palpation, no blistering and no sloughing. Dorsalis pedis pulses 2/4 bilaterally. No cyanosis. NEUROLOGICAL: Alert and oriented x3, normal speech. PSYCH: Normal mood, normal affect. SKIN: Left foot as described above, otherwise normal. Course - Re-evaluation Re-evalutation: 11/17/18 17:52 CBC shows anemia with hemoglobin 10.4, CMP shows low sodium 130, patient has no mental status changes, this does not have anything to do with today's visit, he is advised to follow-up as an outpatient, glucose mildly elevated at 123 on a nonfasting glucose. X-ray shows no acute process and no foreign body. Given how suddenly this onset, how tender he is, the lack of lymphangitic streaking, lack of fever and the lack of leukocytosis I suspect this is gout. P atient will have treatment initiated with steroids and colchicine, given a prescription for allopurinol to use as an outpatient when the acute episode ends and discharged home. Instructed to return for fevers, increasing erythema or any new or concerning problems. - Vital Signs Vital signs: Temp Pulse Resp BP Pulse Ox 99.6 F 85 20 121/53 L 100 11/17/18 12:05 11/17/18 12:05 11/17/18 12:05 11/17/18 12:05 11/17/18 12:05 - Laboratory Result Diagrams: 11/17/18 13:55 11/17/18 13:55 Laboratory results interpreted by me: 11/17/18 11/17/18 13:55 13:55 RBC 2.91 L Hgb 10.4 L Hct 30.8 L MCV 106 H MCH 35.8 H RDW 15.0 H Lymph % (Auto) 11.8 L Sodium 130.0 L Chloride 87 L Carbon Dioxide 35 H BUN 21 H Glucose 123 H Discharge - Discharge Clinical Impression: Acute gout of left foot Qualifiers: Gout etiology: unspecified cause Qualified Code(s): M10.9 - Gout, unspecified Condition: Stable Disposition: HOME, SELF-CARE Additional Instructions: Gout You have been diagnosed as having gout. Gout is a problem caused by an excess of uric acid, a natural chemical found in the body. The cause of this disease is unknown. Gout arthritis occurs when crystals of uric acid form in the joints. The big toe is the most common joint involved, but any joint can become affected. Persons with gout may also form uric acid kidney stones, resulting in flank pain and blood in the urine. Nodules of uric acid may form under the skin. The first step of treatment is to decrease the inflammation in the joint with antiinflammatory medication. Medication to lower the uric acid level in the blood may then be prescribed. This medication should be taken regularly, as any sudden change in dosage may provoke an attack of gout. Some foods, such as red meat, can provoke an attack in some gout sufferers. Call the doctor if new symptoms arise, or if you do not improve. Gout Diet Changing your diet can decrease the uric acid in your blood. High levels of uric acid cause gouty arthritis and uric acid kidney stones. If you have gout, you should avoid meats that are high in purine. Meat products to avoid include liver, kidneys, and brains. In general, poultry is better than red meats. [place] ds to avoid include anchovies, sardines, villa, mackerel, and scallops. In addition to limiting purine-rich foods, people with gout should limit protein intake to 10-15% of total calories. Carbohydrate intake should be around 50% of total daily calories. Limit fat intake to 30% of total daily calories. Cholesterol intake should be less than 300 mg/day. Maintain or achieve a healthy body weight. Weight loss should be gradual. Rapid weight loss can actually increase uric acid levels temporarily. Alcohol, especially beer, should be avoided. Get plenty of fluids. This dilutes urinary uric acid, and helps prevent uric acid kidney stones. Drink eight to twelve cups of water daily. Please take the colchicine as directed while you still have pain. We did a few days after the pain resolves and then start taking the allopurinol. This is the location that will help to prevent you from having another attack of gout. I have also prescribed 5 days worth of steroids which should help with your gout. If you develop a fever, increasing redness or any new or concerning symptoms p lease return to the emergency department. Prescriptions: Colchicine [Colchicine 0.6 mg Tablet] 0.6 mg PO BIDP PRN #7 tablet PRN Reason: Prednisone [Deltasone 20 mg Tablet] 2 tab PO DAILY 5 Days tablet Allopurinol [Zyloprim 100 mg Tablet] 100 mg PO DAILY #30 tablet Referrals: NIDA COE MD [Primary Care Provider] - Follow up as needed
[2018-11-17] MEDS ORDERED: PREDNISONE 20 MG TABLET PO ONE (17:56)
[2018-11-17 19:26] VITALS: BP 111/50
== END 2018-11-17 19:27 | disposition home or self-care (01) ==
LOC: ER 12:05
DX: M10.9 Gout, unspecified (principal); M79.672 Pain in left foot; Z87.891 Personal history of nicotine dependence; I10 Essential (primary) hypertension
CPT/HCPCS: 99283; 36415; 85025; 80053; 73630; A9270 ×2; J7512

== ENCOUNTER 2019-08-17 20:06 | Emergency (ER) | payer MEDICARE, OTHER ==
[2019-08-17] MEDS ORDERED: METHYLPREDNISOLONE INJ 125 MG/2 ML SDV IV ONE (20:16)
[2019-08-17] MEDS ORDERED: IPRATROPIUM/ALBUTEROL 0.5-2.5 MG/3 ML AMPUL NEB ONE (20:17)
[2019-08-17 20:37] LABS: ABSOLUTE LYMPHOCYTES (AUTO) 1.2 10^3/uL (0.5-4.7); ABSOLUTE MONOCYTES (AUTO) 0.5 10^3/uL (0.1-1.4); ABSOLUTE NEUT (AUTO) 5.5 10^3/uL (1.7-8.2); BASOPHILS % (AUTO) 0.2 % (0-2); HEMATOCRIT 35.2 % (37.9-51.0); HEMOGLOBIN 11.7 g/dL (13.5-17.0); LYMPHOCYTES % (AUTO) 16.1 % (13-45); MEAN CORPUSCULAR HEMOGLOBIN 34.6 pg (27.0-33.4); MEAN CORPUSCULAR HGB CONC 33.2 g/dL (32.0-36.0); MEAN CORPUSCULAR VOLUME 104 fl (80-97); MONOCYTES % (AUTO) 7.1 % (3-13); PLATELET COUNT 214 10^3/uL (150-450); RED BLOOD COUNT 3.38 10^6/uL (4.35-5.55); RED CELL DISTRIBUTION WIDTH 15.5 % (11.5-14.0); SEGMENTED NEUTROPHILS % (AUTO) 76.6 % (42-78); TOTAL CELLS COUNTED % (AUTO) 100 %; VENOUS BLOOD BASE EXCESS -4.3 mmol/L; VENOUS BLOOD HCO3 19.9 mmol/L (20-32); VENOUS BLOOD PCO2 32.9 mmHg (35-63); VENOUS BLOOD PH 7.4 (7.30-7.42); WHITE BLOOD COUNT 7.2 10^3/uL (4.0-10.5)
[2019-08-17 20:44] LABS: INTERNATIONAL RATION (INR) 1.11; PROTHROMBIN TIME 14.3 SEC (11.4-15.4)
[2019-08-17 20:47] LABS: ALBUMIN 3.9 g/dL (3.5-5.0); ALKALINE PHOSPHATASE 58 U/L (38-126); ANION GAP 11 (5-19); ASPARTATE AMINO TRANSFERASE 21 U/L (17-59); BILIRUBIN,DIRECT 0.1 mg/dL (0.0-0.4); BILIRUBIN,TOTAL 0.3 mg/dL (0.2-1.3); BLOOD UREA NITROGEN 25 mg/dL (7-20); CALCIUM 9.3 mg/dL (8.4-10.2); CARBON DIOXIDE 28 mmol/L (22-30); CHLORIDE 91 mmol/L (98-107); GLUCOSE 139 mg/dL (75-110); POTASSIUM 3.9 mmol/L (3.6-5.0); TOTAL PROTEIN 7.2 g/dL (6.3-8.2)
--- NOTE | 2019-08-17 20:53 | ER Document Report ---
ED General - General Chief Complaint: Respiratory Distress Stated Complaint: RESPIRATORY DISTRESS Time Seen by Provider: 08/17/19 20:10 Primary Care Provider: NIDA COE MD [Primary Care Provider] - Follow up as needed TRAVEL OUTSIDE OF THE [place] IN LAST 30 DAYS: No - HPI Notes: Patient is a 79-year-old male with a history of COPD and CHF who presents to the emergency department for evaluation of acute shortness of breath. The patient states he was just recently discharged from the hospital. He cannot tell me exactly when, and he cannot tell me which hospital. He states he was diagnosed with CHF, but has medications for pneumonia. He states he is on 10 L of nasal c annula oxygen at home. He states he got up, walked through the living room and kitchen to go to the bathroom. He became acutely short of breath upon urinating. He does have a cough, but cannot tell me how long he has had this cough. He was found to be hypoxic with nearly no breath sounds by EMS. He was hypertensive as well. They put him on CPAP, started on nitroglycerin drip, brought the patient to the ED for further evaluation. Nitroglycerin drip was stopped just prior to his arrival, as his blood pressure had dropped precipitously. The patient states he was feeling significantly improved. He has had some right-sided sharp chest pain, but he cannot really further characterize that for me either. - Related Data Allergies/Adverse Reactions: No Known Allergies Allergy (Verified 11/17/18 12:22) Past Medical History - General Information source: Patient - Social History Smoking Status: Current Every Day Smoker Drug Abuse: None Family History: Hypertension - Past Medical History Cardiac Medical History: Reports: Hx Congestive Heart Failure, Hx Hypertension Pulmonary Medical History: Reports: Hx COPD, Other - Pulmonary fibrosis Renal/ Medical History: Reports: Hx Benign Prostatic Hyperplasia. Denies: Hx Peritoneal Dialysis Psychiatric Medical History: Reports: Hx Depression Past Surgical History: Reports: Hx Orthopedic Surgery - C-Spine fusion - Immunizations Hx Diphtheria, Pertussis, Tetanus Vaccination: No Hx Pneumococcal Vaccination: 11/20/15 Review of Systems - Review of Systems Cardiovascular: See HPI Respiratory: See HPI -: Yes All other systems reviewed and negative Physical Exam - Vital signs Vitals: Temp 97.6 F 08/17/19 20:07 - Notes Notes: This is a 79-year-old male who appears his stated age. He is mildly tachypneic, intermittently coughing. He is on CPAP at the time of my initial evaluation, no significant conversational dyspnea noted. Vital signs reviewed, please refer to chart. Head is normocephalic, atraumatic. Pupils equal round, reactive to light. Neck is supple without meningismus. Heart is regular rate and rhythm. Lungs difficult to auscultate over sound of CPAP, but scant expiratory wheezes and diminished breath sounds noted.. Abdomen is soft, nontender, normoactive bowel sounds throughout. Extremities without cyanosis, clubbing. Posterior calves are nontender. Peripheral pulses are equal. Skin is warm and dry. Patient is awake, alert, neurological exam is nonfocal. Course - Re-evaluation Re-evalutation: 08/17/19 20:56 Patient presents to the emergency department for evaluation. He is an extremely poor historian. He was markedly hypoxic, but states he is on 10 L of nasal cannula oxygen at home. I am unsure as to how much oxygen he was on upon arrival of EMS. He states he is feeling significantly improved. Sepsis evaluation as well as CHF evaluation is started. He is placed on BiPAP, starting at 60% FiO2. He is given Solu-Medrol and a DuoNeb. Nitroglycerin drip, instituted by EMS, is discontinued secondary to hypotension. I did not appreciate significant crackles on exam. Patient is currently stable, feeling improved, we will continue to monitor. 08/17/19 21:46 Patient is feeling significantly improved. I go back into the room and evaluate him. He has a normal heart rate, respiratory rate of 10-12, oxygenating well. He shows no increased work of breathing at all. His chest pain, earlier present with breathing, has resolved. The patient's lactate is high and he seems a bit dry, but I suspect this is because he was just recently admitted for congestive heart failure, and he is on Bumex. I suspect this is all secondary to intentional diuresis. The patient is feeling improved. I would like to try him on nasal cannula to see how he feels. Patient is amenable to this plan. 08/17/19 23:37 Patient is resting comfortably on 3 L per nasal cannula, SPO2 is 95%. His blood pressure is normal. He has no complaints of shortness of breath. I do not have a clear etiology as to what happened earlier, but he is back to baseline, actually improved over baseline. He was just recently hospitalized, is on antibiotics for pneumonia, steroids for COPD and pulmonary fibrosis. He has a follow-up appointment with pulmonology/primary care already scheduled. He is to return to the ED with worsening, otherwise we will discharge the patient home. - Vital Signs Vital signs: Temp Pulse Resp BP Pulse Ox 97.6 F 18 101/48 L 85 L 08/17/19 20:07 08/17/19 22:01 08/17/19 22:01 08/17/19 22:01 - Laboratory Result Diagrams: 08/17/19 20:12 08/17/19 20:12 Laboratory results interpreted by me: 08/17/19 08/17/19 08/17/19 20:12 20:12 20:12 RBC 3.38 L Hgb 11.7 L Hct 35.2 L MCV 104 H MCH 34.6 H RDW 15.5 H VBG pCO2 VBG HCO3 Sodium 129.9 L Chloride 91 L BUN 25 H Creatinine 1.32 H Est GFR (MDRD) Non-Af 53 L Glucose 139 H Lactic Acid NT-Pro-B Natriuret Pep 500 H 08/17/19 08/17/19 20:12 20:12 RBC Hgb Hct MCV MCH RDW VBG pCO2 32.9 L VBG HCO3 19.9 L Sodium Chloride BUN Creatinine Est GFR (MDRD) Non-Af Glucose Lactic Acid 4.9 H NT-Pro-B Natriuret Pep - Diagnostic Test Radiology reviewed: Image reviewed, Reports reviewed Radiology results interpreted by me: 08/17/19 21:47 Chest X-Ray 08/17/19 20:11 IMPRESSION: Perihilar and lower lobe volume loss which may represent atelectasis or scarring. The appearance is similar to the previous exam. - EKG Interpretation by Me Additional EKG results interpreted by me: 08/17/19 21:49 Sinus tachycardia with a rate of 103 bpm. Normal axis and intervals. Low voltage across the anterior chest leads. No acute ST elevation concerning for infarction. No significant change compared to prior. Discharge - Discharge Clinical Impression: Pulmonary fibrosis, Tobacco dependency, Transient hypoxia Condition: Stable Disposition: HOME, SELF-CARE Instructions: Chronic Obstructive Lung Disease ([facility]), Dyspnea, Nonspecific ([facility]) Additional Instructions: No clear cause was found for your symptoms today. Please continue your home oxygen, your antibiotics, and your prednisone as directed when you were discharged from [facility]. If you develop worsening difficulty breathing, or any other new or concerning symptoms, please return immediately to the emergency department for evaluation. Forms: Smoking Cessation Education Referrals: NIDA COE MD [Primary Care Provider] - Follow up as needed
[2019-08-17 20:59] LABS: NT PRO BNP 500 pg/mL (<450)
--- NOTE | 2019-08-17 20:59 | RADIOLOGY REPORT (SQ) ---
EXAM DESCRIPTION: X-ray, AP portable view of the chest CLINICAL HISTORY: 79 years Male, dyspnea COMPARISON: Portable view of the chest 03/23/2017 FINDINGS: Lungs: Asymmetric elevation the left hemidiaphragm is identified. There is volume loss in the perihilar and lower lobes which is similar to the previous examination. No definitive pneumothorax. Mediastinum: Cardiac and mediastinal silhouette are distorted secondary to curvature of the thoracic spine. The appearance is stable. Bones: Curvature of the thoracic spine convex right. Endplate spondylosis. Vascular clips project over the right upper chest. The large and small bowel is mildly distended with air. IMPRESSION: Perihilar and lower lobe volume loss which may represent atelectasis or scarring. The appearance is similar to the previous exam.
[2019-08-17 21:01] LABS: TROPONIN I < 0.012 ng/mL
[2019-08-17 22:45] VITALS: BP 101/48
--- NOTE | 2019-08-18 00:23 | EKG REPORT ---
SEVERITY:- BORDERLINE ECG - SINUS TACHYCARDIA LOW VOLTAGE IN FRONTAL LEADS : Confirmed by: Eleanor Grant 18-Aug-2019 00:22:05
== END 2019-08-18 00:27 | disposition home or self-care (01) ==
LOC: ER 20:06
DX: J84.10 Pulmonary fibrosis, unspecified (principal); R09.02 Hypoxemia; F17.200 Nicotine dependence, unspecified, uncomplicated; I50.9 Heart failure, unspecified; I11.0 Hypertensive heart disease with heart failure; R06.82 Tachypnea, not elsewhere classified; R05 Cough
CPT/HCPCS: 93005; 94640; 99285; 96374; 36415; 87040; 83605; 85025; 85610; 87077; 80053; 84484; 82803; 87150 ×26; 83880; 71045; 93010; J2930; A9270; J7620

== ENCOUNTER 2019-09-03 21:43 | Emergency (ER) | payer MEDICARE, OTHER ==
--- NOTE | 2019-09-03 22:03 | ER Document Report ---
ED General - General Chief Complaint: Shortness Of Breath Stated Complaint: SHORTNESS OF BREATH Time Seen by Provider: 09/03/19 22:03 Primary Care Provider: NIDA COE MD [NO LOCAL MD] - Follow up as needed Notes: Patient is a 79-year-old male with a history of COPD and CHF who presents to the emergency department for evaluation of acute shortness of breath. He reports he has a history of idiopathic pulmonary fibrosis and usually wears 10 L of high flow O2 at home. He reports intermittent shortness of breath that is worsened through the day. He denies any fever or chills. He is otherwise well. EMS gave DuoNeb x3 and 125 Solu-Medrol prior to arrival. TRAVEL OUTSIDE OF THE [place] IN LAST 30 DAYS: No - Related Data Allergies/Adverse Reactions: No Known Allergies Allergy (Verified 09/03/19 21:58) Past Medical History - General Information source: Patient - Social History Smoking Status: Former Smoker Frequency of alcohol use: None Drug Abuse: None Family History: Hypertension - Past Medical History Cardiac Medical History: Reports: Hx Congestive Heart Failure, Hx Hypertension Pulmonary Medical History: Reports: Hx COPD, Other - Pulmonary fibrosis Renal/ Medical History: Reports: Hx Benign Prostatic Hyperplasia. Denies: Hx Peritoneal Dialysis Psychiatric Medical History: Reports: Hx Depression Past Surgical History: Reports: Hx Orthopedic Surgery - C-Spine fusion - Immunizations Hx Diphtheria, Pertussis, Tetanus Vaccination: No Hx Pneumococcal Vaccination: 11/20/15 Review of Systems - Review of Systems Respiratory: Short of breath -: Yes All other systems reviewed and negative Physical Exam - Vital signs Vitals: Resp Pulse Ox 24 H 89 L 09/03/19 21:48 09/03/19 21:48 - Notes Notes: PHYSICAL EXAMINATION: GENERAL: Well-appearing, well-nourished and in no acute distress. HEAD: Atraumatic, normocephalic. EYES: Pupils equal round and reactive to light, extraocular movements intact, sclera anicteric, conjunctiva are normal. ENT: Nares patent, oropharynx clear without exudates. Moist mucous membranes. NECK: Normal range of motion, supple without lymphadenopathy LUNGS: Diminished lung sounds. No wheezes rales or rhonchi. HEART: Regular rate and rhythm without murmurs ABDOMEN: Soft, nontender, nondistended abdomen. No guarding, no rebound. No masses appreciated. Musculoskeletal: Normal range of motion, no pitting or edema. No cyanosis. NEUROLOGICAL: Cranial nerves grossly intact. Normal speech, normal gait. Normal sensory, motor exams PSYCH: Normal mood, normal affect. SKIN: Warm, Dry, normal turgor, no rashes or lesions noted. Course - Re-evaluation Re-evalutation: Chest X-Ray 09/03/19 21:57 IMPRESSION: Overall stable appearance of the chest; no acute disease. While the right perihilar masslike opacity appears stable, it remains indeterminate etiology, potentially corresponding to an area of volume loss. As such, recommend CT chest for definitive assessment of this finding given its masslike configuration. copyright 2010 [employer]- All Rights Reserved Chest X-Ray 09/03/19 21:57 IMPRESSION: Overall stable appearance of the chest; no acute disease. While the right perihilar masslike opacity appears stable, it remains indeterminate etiology, potentially corresponding to an area of volume loss. As such, recommend CT chest for definitive assessment of this finding given its masslike configuration. copyright 2010 [employer]- All Rights Reserved Patient reports significant improvement with medications given. Patient appears well, he is not tachypneic, tachycardic or hypoxic. He will be discharged home at this time. - Vital Signs Vital signs: Temp Pulse Resp BP Pulse Ox 98.4 F 81 17 95/61 L 100 09/04/19 00:28 09/03/19 21:59 09/04/19 00:28 09/04/19 00:28 09/04/19 00:28 - Laboratory Result Diagrams: 09/03/19 21:53 09/03/19 21:53 Laboratory results interpreted by me: 09/03/19 09/03/19 09/03/19 21:53 21:53 21:53 RBC 3.61 L Hgb 12.5 L Hct 37.5 L MCV 104 H MCH 34.6 H RDW 15.6 H Sodium 133.9 L Chloride 97 L Lactic Acid 5.0 H Total Protein 6.1 L Albumin 3.2 L - EKG Interpretation by Ca EKG shows normal: Sinus rhythm Rate: Normal Rhythm: NSR - No ST segment elevations or depressions to suggest ischemia. Discharge - Discharge Clinical Impression: SOB (shortness of breath) Condition: Stable Disposition: HOME, SELF-CARE Additional Instructions: Your work-up today was reassuring. Please follow-up with your primary care provider. Return to the emergency department any new or worsening concerns. Referrals: NIDA COE MD [NO LOCAL MD] - Follow up as needed
[2019-09-03 22:12] LABS: ABSOLUTE LYMPHOCYTES (AUTO) 1.5 10^3/uL (0.5-4.7); ABSOLUTE MONOCYTES (AUTO) 0.5 10^3/uL (0.1-1.4); ABSOLUTE NEUT (AUTO) 6.9 10^3/uL (1.7-8.2); BASOPHILS % (AUTO) 0.2 % (0-2); EOSINOPHILS % (AUTO) 0.2 % (0-6); HEMATOCRIT 37.5 % (37.9-51.0); HEMOGLOBIN 12.5 g/dL (13.5-17.0); LYMPHOCYTES % (AUTO) 17.2 % (13-45); MEAN CORPUSCULAR HEMOGLOBIN 34.6 pg (27.0-33.4); MEAN CORPUSCULAR HGB CONC 33.3 g/dL (32.0-36.0); MEAN CORPUSCULAR VOLUME 104 fl (80-97); MONOCYTES % (AUTO) 5.5 % (3-13); PLATELET COUNT 188 10^3/uL (150-450); RED BLOOD COUNT 3.61 10^6/uL (4.35-5.55); RED CELL DISTRIBUTION WIDTH 15.6 % (11.5-14.0); SEGMENTED NEUTROPHILS % (AUTO) 76.9 % (42-78); TOTAL CELLS COUNTED % (AUTO) 100 %
[2019-09-03 22:28] LABS: ALBUMIN 3.2 g/dL (3.5-5.0); ALKALINE PHOSPHATASE 52 U/L (38-126); ANION GAP 7 (5-19); ASPARTATE AMINO TRANSFERASE 28 U/L (17-59); BILIRUBIN,TOTAL 0.5 mg/dL (0.2-1.3); BLOOD UREA NITROGEN 16 mg/dL (7-20); CALCIUM 8.4 mg/dL (8.4-10.2); CARBON DIOXIDE 30 mmol/L (22-30); CHLORIDE 97 mmol/L (98-107); GLUCOSE 96 mg/dL (75-110); POTASSIUM 3.7 mmol/L (3.6-5.0); TOTAL PROTEIN 6.1 g/dL (6.3-8.2)
--- NOTE | 2019-09-03 23:11 | RADIOLOGY REPORT (SQ) ---
EXAM DESCRIPTION: XR CHEST 1 VIEW COMPLETED DATE/TME: 09/03/2019 21:57 CLINICAL HISTORY: 79 years, Male, sob COMPARISON: Prior study from 08/17/2019; 03/23/2017 NUMBER OF VIEWS: One TECHNIQUE: Single frontal view of the chest was obtained portably LIMITATIONS: None. FINDINGS: Cardiac and mediastinal contours are stable. Again visualized is elevation of the left hemidiaphragm with left basilar bandlike opacity, presumably chronic scar given its stability. Additional right perihilar masslike opacity with volume loss persists, also similar to the previous study dated 03/23/2017. No pneumothorax or large pleural effusion. IMPRESSION: Overall stable appearance of the chest; no acute disease. While the right perihilar masslike opacity appears stable, it remains indeterminate etiology, potentially corresponding to an area of volume loss. As such, recommend CT chest for definitive assessment of this finding given its masslike configuration. copyright 2010 [employer]- All Rights Reserved
[2019-09-04 00:39] VITALS: BP 95/61
--- NOTE | 2019-09-04 13:22 | EKG REPORT ---
SEVERITY:- NORMAL ECG - SINUS RHYTHM : Confirmed by: Jimmy Rod MD 04-Sep-2019 13:21:33
== END 2019-09-04 00:39 | disposition home or self-care (01) ==
LOC: ER 21:43
DX: R06.02 Shortness of breath (principal); J44.9 Chronic obstructive pulmonary disease, unspecified; I11.0 Hypertensive heart disease with heart failure; I50.9 Heart failure, unspecified; Z87.891 Personal history of nicotine dependence
CPT/HCPCS: 36415; 71045; 80053; 83605; 83880; 85025; 93005; 93010; 99285

== ENCOUNTER 2019-12-06 20:31 | Emergency (ER) | payer MEDICARE, OTHER ==
[2019-12-06 20:55] LABS: ABSOLUTE BASOPHILS # (AUTO) 0.1 10^3/uL (0.0-0.2); ABSOLUTE EOSINOPHILS # (AUTO) 0.2 10^3/uL (0.0-0.6); ABSOLUTE LYMPHOCYTES (AUTO) 2.3 10^3/uL (0.5-4.7); ABSOLUTE MONOCYTES (AUTO) 0.5 10^3/uL (0.1-1.4); ABSOLUTE NEUT (AUTO) 5.9 10^3/uL (1.7-8.2); BASOPHILS % (AUTO) 1.2 % (0-2); EOSINOPHILS % (AUTO) 1.9 % (0-6); HEMATOCRIT 39.2 % (37.9-51.0); HEMOGLOBIN 13.3 g/dL (13.5-17.0); LYMPHOCYTES % (AUTO) 25.4 % (13-45); MEAN CORPUSCULAR HEMOGLOBIN 34.5 pg (27.0-33.4); MEAN CORPUSCULAR HGB CONC 33.9 g/dL (32.0-36.0); MEAN CORPUSCULAR VOLUME 102 fl (80-97); MONOCYTES % (AUTO) 5.3 % (3-13); PLATELET COUNT 256 10^3/uL (150-450); RED BLOOD COUNT 3.84 10^6/uL (4.35-5.55); RED CELL DISTRIBUTION WIDTH 15.7 % (11.5-14.0); SEGMENTED NEUTROPHILS % (AUTO) 66.2 % (42-78); TOTAL CELLS COUNTED % (AUTO) 100 %; WHITE BLOOD COUNT 8.9 10^3/uL (4.0-10.5)
[2019-12-06 21:13] LABS: ALBUMIN 4.3 g/dL (3.5-5.0); ALKALINE PHOSPHATASE 66 U/L (38-126); ANION GAP 8 (5-19); ASPARTATE AMINO TRANSFERASE 29 U/L (17-59); BILIRUBIN,DIRECT 0.3 mg/dL (0.0-0.4); BILIRUBIN,TOTAL 0.7 mg/dL (0.2-1.3); BLOOD UREA NITROGEN 30 mg/dL (7-20); CALCIUM 9.9 mg/dL (8.4-10.2); CARBON DIOXIDE 34 mmol/L (22-30); CHLORIDE 93 mmol/L (98-107); GLUCOSE 109 mg/dL (75-110); POTASSIUM 4.1 mmol/L (3.6-5.0); TOTAL PROTEIN 7.7 g/dL (6.3-8.2)
[2019-12-06 21:15] LABS: CREATINE KINASE < 20 U/L (55-170)
[2019-12-06 21:30] LABS: CREATINE KINASE MB 0.79 ng/mL (<4.55); NT PRO BNP 548 pg/mL (<450)
[2019-12-06 21:31] LABS: TROPONIN I < 0.012 ng/mL
[2019-12-06] MEDS ORDERED: IPRATROPIUM/ALBUTEROL 0.5-2.5 MG/3 ML AMPUL NEB ONE (21:57)
--- NOTE | 2019-12-06 22:00 | ER Document Report ---
ED Medical Screen (RME) - General Chief Complaint: Shortness Of Breath Stated Complaint: SHORTNESS OF BREATH Time Seen by Provider: 12/06/19 21:44 Primary Care Provider: DEVONTE BUENO NP [Primary Care Provider] - Follow up as needed Notes: Patient is a 79-year-old male with pulmonary fibrosis who presents emergency department with a chief complaint of shortness of breath. Patient states that part of his breathing treatment broke, therefore he could not give himself breathing treatments at home. He called EMS and they gave him Solu-Medrol, albuterol and Atrovent. When EMS arrived, the patient's oxygen saturation was 77% on room air. Patient states that he is breathing a little bit better. States that he still feels like he needs another breathing treatment. Patient states that he takes magnesium daily. Exam: Diminished breath sounds in left lung kulkarni. Patient tachypneic. I have greeted and performed a rapid initial assessment of this patient. A comprehensive ED assessment and evaluation of the patient, analysis of test results and completion of medical decision making process will be conducted by an additional ED providers. TRAVEL OUTSIDE OF THE [place] IN LAST 30 DAYS: No - Related Data Allergies/Adverse Reactions: No Known Allergies Allergy (Verified 09/23/19 01:43) Home Medications: allopurinol, spiriva, gabapentin, spironolactone, oxycodone, ipratropium Past Medical History - Past Medical History Cardiac Medical History: Reports: Hx Congestive Heart Failure, Hx Hypertension Pulmonary Medical History: Reports: Hx COPD - pulmonary fibrosis Renal/ Medical History: Reports: Hx Benign Prostatic Hyperplasia. Denies: Hx Peritoneal Dialysis Psychiatric Medical History: Reports: Hx Depression Past Surgical History: Reports: Hx Orthopedic Surgery - C-Spine fusion - Immunizations Hx Diphtheria, Pertussis, Tetanus Vaccination: No Physical Exam - Vital signs Vitals: Temp Resp Pulse Ox 98 F 26 H 85 L 12/06/19 20:33 12/06/19 20:33 12/06/19 20:33 Course - Vital Signs Vital signs: Temp Pulse Resp BP Pulse Ox 98 F 24 H 113/63 97 12/06/19 20:33 12/06/19 21:03 12/06/19 21:03 12/06/19 21:03 - Laboratory Result Diagrams: 12/06/19 20:42 12/06/19 20:42 Laboratory results interpreted by me: 12/06/19 12/06/19 12/06/19 20:42 20:42 20:42 RBC 3.84 L Hgb 13.3 L MCV 102 H MCH 34.5 H RDW 15.7 H Sodium 135.4 L Chloride 93 L Carbon Dioxide 34 H BUN 30 H Creatine Kinase < 20 L NT-Pro-B Natriuret Pep 548 H Doctor's Discharge - Discharge Referrals: DEVONTE BUENO NP [Primary Care Provider] - Follow up as needed
--- NOTE | 2019-12-06 22:19 | RADIOLOGY REPORT (SQ) ---
EXAM DESCRIPTION: XR CHEST 1 VIEW COMPLETED DATE/TME: 12/06/2019 20:45 CLINICAL HISTORY: 79 years, Male, shortness of breath, cough COMPARISON: September 23, 2019 NUMBER OF VIEWS: 1 TECHNIQUE: Portable AP view of the chest was obtained at 9:29 PM. LIMITATIONS: None. FINDINGS: There is stable cardiac enlargement. Advanced emphysematous changes are again identified. Presumed scarring left mid and lower lung zones is again noted with elevation left hemidiaphragm as before. Chronic interstitial prominence is again noted within the right mid and lower chest, also similar to August 17, 2019. No acute superimposed opacity is seen. There is no evidence of pleural effusion or pneumothorax. IMPRESSION: Stable, chronic appearing findings as above. No definite acute superimposed abnormality is seen. copyright 2010 [employer]- All Rights Reserved
[2019-12-06] MEDS ORDERED: LEVALBUTEROL HCL NEB 0.63 MG/3 ML AMPUL NEB ONE (23:27)
--- NOTE | 2019-12-06 23:40 | ER Document Report ---
ED General - General Chief Complaint: Shortness Of Breath Stated Complaint: SHORTNESS OF BREATH Time Seen by Provider: 12/06/19 21:44 Primary Care Provider: DEVONTE BUENO NP [Primary Care Provider] - Follow up as needed TRAVEL OUTSIDE OF THE [place] IN LAST 30 DAYS: No - HPI Context: This is a 79-year-old male with a past medical history of pulmonary fibrosis, COPD, tobacco dependency, on home O2 between 4 to 10 L presenting to the emergency department complaining of shortness of breath. Patient states he has been becoming increasingly short of breath at home over the past couple of days and that his nebulizer machine broke which prevented him from giving himself breathing treatments at home. Patient called EMS. When EMS arrived on scene they given Solu-Medrol albuterol and Atrovent. The patient's oxygenation was initially 77% on room air and he seems to be breathing better now that he is arrived in the emergency department with a heart rate of 85 and a O2 sat of 97% on 6 L currently. When the patient arrived he stated he felt like he still needs another breathing treatment. Patient states exertion worsened so shortness of breath and breathing treatments that have been administered by EMS seem to help. Patient denies history of Covid infection, loss of sense of taste or smell, fever, chills, chest pain, leg swelling, known exposure to patients positive for Covid infection or persons under investigation for Covid infection. Associated symptoms: Other - See HPI. denies: Productive cough Exacerbated by: Movement Relieved by: Other - See HPI Similar symptoms previously: Yes - Related Data Allergies/Adverse Reactions: No Known Allergies Allergy (Verified 09/23/19 01:43) Home Medications: allopurinol, spiriva, gabapentin, spironolactone, oxycodone, ipratropium Past Medical History - General Information source: Patient, Emergency Med Personnel - Social History Smoking Status: Current Every Day Smoker Smoking Education Provided: Yes Family History: Reviewed & Not Pertinent, Hypertension Patient has homicidal ideation: No - Past Medical History Cardiac Medical History: Reports: Hx Congestive Heart Failure, Hx Hypertension Pulmonary Medical History: Reports: Hx COPD - pulmonary fibrosis Renal/ Medical History: Reports: Hx Benign Prostatic Hyperplasia. Denies: Hx Peritoneal Dialysis Psychiatric Medical History: Reports: Hx Depression Past Surgical History: Reports: Hx Orthopedic Surgery - C-Spine fusion - Immunizations Hx Diphtheria, Pertussis, Tetanus Vaccination: No Hx Pneumococcal Vaccination: 11/20/15 Review of Systems - Review of Systems Constitutional: No symptoms reported EENT: No symptoms reported Cardiovascular: No symptoms reported Respiratory: Short of breath Gastrointestinal: No symptoms reported Genitourinary: No symptoms reported Male Genitourinary: No symptoms reported Musculoskeletal: No symptoms reported Skin: No symptoms reported Hematologic/Lymphatic: No symptoms reported Neurological/Psychological: No symptoms reported Physical Exam - Vital signs Vitals: Temp Resp Pulse Ox 98 F 26 H 85 L 12/06/19 20:33 12/06/19 20:33 12/06/19 20:33 - Notes Notes: CONSTITUTIONAL [Vital signs reviewed, Patient appears comfortable, Alert and oriented X 3, Normal stature.] HEAD [Atraumatic, Normocephalic.] EYES [Eyes are normal to inspection, No discharge from eyes, Extraocular muscles intact, Sclera are normal, Conjunctiva are normal.] NECK [Normal ROM, No jugular venous distention, No meningeal signs, no carotid bruit.] RESPIRATORY CHEST [Chest is nontender, Breath sounds are audible but slightly diminished, patient has some mild tachypnea but no respiratory distress.] CARDIOVASCULAR [Tachycardic, No murmurs, Normal S1 S2, No rub, No gallop.] ABDOMEN [Abdomen is nontender, No pulsatile masses, No other masses, Bowel sounds normal, No distension, No peritoneal signs, No hernias.] BACK [There is no CVA Tenderness, There is no tenderness to palpation, Normal inspection.] UPPER EXTREMITY [Inspection normal, No cyanosis, No clubbing, No edema, 2+ radial pulses.] LOWER EXTREMITY [Inspection normal, No cyanosis, No clubbing, No edema, No calf tenderness, 2+ femoral pulses.] NEURO [No focal motor deficits, No focal sensory deficits, Speech normal.] SKIN [Skin is warm, Skin is dry, Skin is normal color.] PSYCHIATRIC [Normal affect. ] Course - Re-evaluation Re-evalutation: 12/07/19 01:42 Patient is sleeping comfortably in his room. Patient is easily awoken with verbal stimuli. Patient has a heart rate of 72 O2 sats of 99% on 6 L respiratory rate of 15 and blood pressure 104/54. Patient states that he feels much better. Patient states his nurse was able to find him equipment to make his nebulizer machine at home functional again. Patient states he is comfortable going home. All questions were answered prior to discharge. Emergency signs and symptoms, reasons to return to the emergency department discussed with patient. - Vital Signs Vital signs: Temp Pulse Resp BP Pulse Ox 98.4 F 21 H 104/54 L 99 12/07/19 00:00 12/07/19 01:01 12/07/19 01:01 12/07/19 01:01 - Laboratory Result Diagrams: 12/06/19 20:42 12/06/19 20:42 Laboratory results interpreted by me: 12/06/19 12/06/19 12/06/19 20:42 20:42 20:42 RBC 3.84 L Hgb 13.3 L MCV 102 H MCH 34.5 H RDW 15.7 H Sodium 135.4 L Chloride 93 L Carbon Dioxide 34 H BUN 30 H Creatine Kinase < 20 L NT-Pro-B Natriuret Pep 548 H Urine Ascorbic Acid 12/06/19 23:10 RBC Hgb MCV MCH RDW Sodium Chloride Carbon Dioxide BUN Creatine Kinase NT-Pro-B Natriuret Pep Urine Ascorbic Acid 40 H - Diagnostic Test Radiology reviewed: Reports reviewed - EKG Interpretation by Me Additional EKG results interpreted by me: 12/07/19 01:44 EKG obtained on 12/06/2019 at 2041 hrs. was interpreted by this MD. Findings: Normal sinus rhythm, rate 87, normal axis, [place] interval appears to be within normal limits, P waves preceding QRS complexes, QRS complexes appear narrow, QTC is 448, there are no obvious patterns of ST segment elevation, depression or reciprocal changes seen to suggest acute myocardial ischemia or infarction. When compared to prior EKG from 09/23/2019, there do not appear to be any obvious acute changes and overall, morphology appears grossly the same. Impression normal sinus rhythm with nonspecific ST segments. Discharge - Discharge Clinical Impression: Pulmonary fibrosis, Tobacco dependency, Tobacco abuse counseling COPD (chronic obstructive pulmonary disease) Qualifiers: COPD type: unspecified COPD Qualified Code(s): J44.9 - Chronic obstructive pulmonary disease, unspecified Condition: Stable Disposition: HOME, SELF-CARE Additional Instructions: Return to the Emergency Department without delay if any worse. HOME CARE INSTRUCTIONS & INFORMATION: Thank you for choosing us for your medical needs. We hope you're satisfied with the care you received. After you leave, you must properly care for your problem and, at the same time, observe its progress. Any condition can change. Some illnesses can change rapidly over hours or days. If your condition worsens, return to the Emergency Department or see your physician promptly. ABOUT YOUR X-RAYS AND EKG'S: If you had an EKG or X-rays taken, they have been read by the Emergency Physician. The X-rays and EKG's will also be read by a Radiologist or Landscape Horticulture Instructor within 24 hours. If discrepancies are noted, you will be notified by telephone. Please be certain the ED has a correct telephone number & address where you can be reached. Also, realize that some fractures or abnormalities do not show up on initial X-rays. If your symptoms continue, see your physician. ABOUT YOUR LABORATORY TEST: If you had laboratory tests, the results have been reviewed by the Emergency Physician. Some test results (for example cultures) may not be available for several days. You will be contacted if any test result shows you need additional treatment. Please be certain the ED has a correct telephone number and address where you can be reached. ABOUT YOUR MEDICATIONS: You will receive instructions on how to take your medicine on the prescription label you receive. Additional information may be provided by the Pharmacy. If you have questions afterwards, call the ED for clarification or further instructions. Some prescribed medications may cause drowsiness. Do not perform tasks such as driving a car or operating machinery without consulting your Pharmacist. If you feel you need a refill of pain medication, your condition will need re-evaluation. Please do not call for a refill of any medication. ABOUT YOUR SIGNATURE: Signature of this document acknowledges to followin. Understanding that you received emergency treatment and that you may be released before al medical problems are known or treated. Please be certain the ED has a correct phone number & address where you can be reached. 2. Acknowledgement that you will arrange for follow-up care as recommended. 3. Authorization for the Emergency Physician to provide information to your follow-up Physician in order to maximize your care. AT ANY TIME, IF YOUR SYMPTOMS CHANGE SIGNIFICANTLY OR WORSEN OR YOU DEVELOP NEW SYMPTOMS, RETURN TO THE EMERGENCY DEPARTMENT IMMEDIATELY FOR RE-EVALUATION. OUR GOAL IS TO PROVIDE EXCELLENT MEDICAL CARE! WE HOPE THAT WE HAVE MET YOUR EXPECTATIONS DURING YOUR EMERGENCY DEPARTMENT VISIT AND THAT YOU FEEL YOU HAVE RECEIVED EXCELLENT CARE! Chronic Obstructive Lung Disease You have chronic obstructive lung disease (COPD). The symptoms come from emphysema (damage to small airways, with trapping of air in large sacks in the lung) and chronic bronchitis (repeated infection and damage to larger airways). The cause is almost always cigarette smoking, although dust exposure, asthma, and infections contribute. You should avoid fumes, dust, and smoke (especially tobacco smoke). Your condition will flare from time to time. There is no cure, but the symptoms can be treated. Bronchodilators (asthma medicine) are often helpful. Antibiotics help when infection is present. When shortness of breath is severe, we may prescribe cortisone medication. If medicine doesn't help enough, we can arrange for you to have an oxygen tank at home. Notify your doctor at once if sputum becomes thick, foul, or bloody, if you develop a fever or chest pain, or if your shortness of breath worsens. Prescriptions: Prednisone [Deltasone 10 mg Tablet] 10 mg PO ASDIR PRN #21 tablet PRN Reason: Referrals: DEVONTE BUENO NP [Primary Care Provider] - Follow up as needed
[2019-12-06 23:48] LABS: APPEARANCE,URINE CLEAR; BILIRUBIN,URINE NEGATIVE (NEGATIVE); COLOR,URINE YELLOW; GLUCOSE, URINE NEGATIVE (NEGATIVE); KETONES,URINE NEGATIVE (NEGATIVE); LEUKOCYTE ESTERASE,URINE NEGATIVE (NEGATIVE); NITRITE,URINE NEGATIVE (NEGATIVE); PROTEIN,URINE NEGATIVE (NEGATIVE); URINE SPECIFIC GRAVITY 1.017; UROBILINOGEN,URINE NEGATIVE mg/dL (<2.0)
[2019-12-07 03:56] VITALS: BP 108/66
--- NOTE | 2019-12-07 16:31 | EKG REPORT ---
SEVERITY:- ABNORMAL ECG - SINUS RHYTHM LOW VOLTAGE IN FRONTAL LEADS CONSIDER ANTEROSEPTAL INFARCT : Confirmed by: Eleanor Grant 07-Dec-2019 16:30:58
== END 2019-12-07 03:20 | disposition home or self-care (01) ==
LOC: ER 20:31
DX: J44.9 Chronic obstructive pulmonary disease, unspecified (principal); J84.10 Pulmonary fibrosis, unspecified; F17.210 Nicotine dependence, cigarettes, uncomplicated; I50.9 Heart failure, unspecified; I11.0 Hypertensive heart disease with heart failure; Z99.81 Dependence on supplemental oxygen
CPT/HCPCS: 36415; 71045; 80053; 81001; 82550; 82553; 83880; 84484; 85025; 93005; 93010; 94640; 99285

== ENCOUNTER 2019-12-07 12:28 | Emergency (ER) | payer MEDICARE, OTHER ==
--- NOTE | 2019-12-07 12:39 | ER Document Report ---
ED Medical Screen (RME) - General Chief Complaint: Shortness Of Breath Stated Complaint: SHORTNESS OF BREATH Time Seen by Provider: 12/07/19 12:35 Primary Care Provider: DEVONTE BUENO NP [Primary Care Provider] - Follow up as needed Mode of Arrival: Medic Information source: Patient Notes: Patient is a 79-year-old male with pulmonary fibrosis COPD CHF high blood pressure right-sided heart failure skin and bladder cancer who presents to the ED for severe shortness of breath. He has O2 at home that he wears at 10 L. EMS states that his O2 sat was 77% on 10 L but he had over 25 feet of O2 tubing. He states once they calmed him down and put him on their O2 he was satting in the low 90s on 6 L of O2. Of ordered cardiac work-up with O2 6 L and another provider will be examining him. After performing a Medical Screening Examination, I spoke with the patient at length in regards to leaving the hospital against medical advice. I do not believe the patient should leave but the patient is alert oriented x4, understands the risks and benefits of staying and leaving including disability and . Pt understands that he can return at any time for further care and is more than welcome to do so. Pt verbalizes this understanding. TRAVEL OUTSIDE OF THE [place] IN LAST 30 DAYS: No - Related Data Allergies/Adverse Reactions: No Known Allergies Allergy (Verified 12/07/19 12:30) Past Medical History - Past Medical History Cardiac Medical History: Reports: Hx Congestive Heart Failure, Hx Hypertension Pulmonary Medical History: Reports: Hx COPD Renal/ Medical History: Reports: Hx Benign Prostatic Hyperplasia. Denies: Hx Peritoneal Dialysis Psychiatric Medical History: Reports: Hx Depression Past Surgical History: Reports: Hx Orthopedic Surgery - C-Spine fusion - Immunizations Hx Diphtheria, Pertussis, Tetanus Vaccination: No Doctor's Discharge - Discharge Referrals: DEVONTE BUENO NP [Primary Care Provider] - Follow up as needed
[2019-12-07 13:02] LABS: ABSOLUTE LYMPHOCYTES (AUTO) 0.6 10^3/uL (0.5-4.7); ABSOLUTE MONOCYTES (AUTO) 0.3 10^3/uL (0.1-1.4); ABSOLUTE NEUT (AUTO) 9.2 10^3/uL (1.7-8.2); BASOPHILS % (AUTO) 0.1 % (0-2); HEMATOCRIT 39.4 % (37.9-51.0); HEMOGLOBIN 13.2 g/dL (13.5-17.0); LYMPHOCYTES % (AUTO) 5.7 % (13-45); MEAN CORPUSCULAR HEMOGLOBIN 34.1 pg (27.0-33.4); MEAN CORPUSCULAR HGB CONC 33.5 g/dL (32.0-36.0); MEAN CORPUSCULAR VOLUME 102 fl (80-97); PLATELET COUNT 245 10^3/uL (150-450); RED BLOOD COUNT 3.87 10^6/uL (4.35-5.55); RED CELL DISTRIBUTION WIDTH 15.9 % (11.5-14.0); SEGMENTED NEUTROPHILS % (AUTO) 91.2 % (42-78); TOTAL CELLS COUNTED % (AUTO) 100 %; WHITE BLOOD COUNT 10.1 10^3/uL (4.0-10.5)
[2019-12-07 13:17] LABS: ALBUMIN 4.3 g/dL (3.5-5.0); ALKALINE PHOSPHATASE 67 U/L (38-126); ANION GAP 11 (5-19); ASPARTATE AMINO TRANSFERASE 42 U/L (17-59); BILIRUBIN,DIRECT 0.3 mg/dL (0.0-0.4); BILIRUBIN,TOTAL 0.7 mg/dL (0.2-1.3); BLOOD UREA NITROGEN 29 mg/dL (7-20); CALCIUM 9.8 mg/dL (8.4-10.2); CARBON DIOXIDE 28 mmol/L (22-30); CHLORIDE 96 mmol/L (98-107); GLUCOSE 118 mg/dL (75-110); POTASSIUM 4.7 mmol/L (3.6-5.0)
--- NOTE | 2019-12-07 13:39 | RADIOLOGY REPORT (SQ) ---
EXAM DESCRIPTION: CHEST SINGLE VIEW IMAGES COMPLETED DATE/TIME: 12/07/2019 1:27 pm REASON FOR STUDY: Short of breath CHF COPD COMPARISON: Chest films 09/03/2019, 09/23/2027, 12/06/2019 CT angio chest 09/23/2019 EXAM PARAMETERS: NUMBER OF VIEWS: One view. TECHNIQUE: Single frontal radiographic view of the chest acquired. RADIATION DOSE: NA LIMITATIONS: None. FINDINGS: LUNGS AND PLEURA: Upper lobes are hyperlucent from obstructive disease. Increased interst itial markings in the mid and lower lungs, stable. Chronic elevation left hemidiaphragm, stable. No acute infiltrates. No pleural effusion. No pneumothorax. MEDIASTINUM AND HILAR STRUCTURES: No masses. Contour normal. HEART AND VASCULAR STRUCTURES: No cardiomegaly BONES: No acute findings. HARDWARE: None in the chest. OTHER: No other significant finding. IMPRESSION: Chronic obstructive lung disease upper lobes, with mid and lower lung fibrosis. Chronic elevation left hemidiaphragm. No acute findings TECHNICAL DOCUMENTATION: JOB ID: [id number] [employer]- All Rights Reserved Reading location - IP/workstation name: [email or web address]
[2019-12-07] MEDS ORDERED: METHYLPREDNISOLONE INJ 125 MG/2 ML SDV IV ONE (14:08)
[2019-12-07] MEDS ORDERED: IPRATROPIUM/ALBUTEROL 0.5-2.5 MG/3 ML AMPUL NEB ONE (14:08)
--- NOTE | 2019-12-07 14:12 | ER Document Report ---
ED Respiratory Problem - General Chief Complaint: Shortness Of Breath Stated Complaint: SHORTNESS OF BREATH Time Seen by Provider: 12/07/19 12:35 Primary Care Provider: DEVONTE BUENO NP [Primary Care Provider] - Follow up as needed Mode of Arrival: Medic Notes: This is a 79-year-old male with a past medical history of pulmonary fibrosis, COPD, tobacco dependency, on home O2 between 4 to 10 L presenting to the emergency department complaining of shortness of breath. He states that he did not get the prescription filled and someone was going to the pharmacy to cloth picker the medication when he became extremely short of breath. Call 911 and was brought back to the hospital for further evaluation and treatment. TRAVEL OUTSIDE OF THE [place] IN LAST 30 DAYS: No - Related Data Allergies/Adverse Reactions: No Known Allergies Allergy (Verified 12/07/19 12:30) Past Medical History - General Information source: Patient - Social History Smoking Status: Current Every Day Smoker Frequency of alcohol use: None Drug Abuse: None Family History: Reviewed & Not Pertinent, Hypertension Patient has homicidal ideation: No - Past Medical History Cardiac Medical History: Reports: Hx Congestive Heart Failure, Hx Hypertension Pulmonary Medical History: Reports: Hx COPD Renal/ Medical History: Reports: Hx Benign Prostatic Hyperplasia. Denies: Hx Peritoneal Dialysis Psychiatric Medical History: Reports: Hx Depression Past Surgical History: Reports: Hx Orthopedic Surgery - C-Spine fusion - Immunizations Hx Diphtheria, Pertussis, Tetanus Vaccination: No Hx Pneumococcal Vaccination: 11/20/15 Review of Systems - Review of Systems Notes: Constitutional: Negative for fever. HENT: Negative for sore throat. Eyes: Negative for visual changes. Cardiovascular: Negative for chest pain. Respiratory: See HPI Gastrointestinal: Negative for abdominal pain, vomiting or diarrhea. Genitourinary: Negative for dysuria. Musculoskeletal: Negative for back pain. Skin: Negative for rash. Neurological: Negative for headaches, weakness or numbness. 10 point ROS negative except as marked above and in HPI. Physical Exam - Vital signs Vitals: Pulse Ox 84 L 12/07/19 12:28 - Notes Notes: PHYSICAL EXAMINATION: Physical Exam: General: Well-nourished well-developed 39-year-old man in respiratory distress HEENT: NC/AT, pupils equal round and reactive to light, MM moist,nares clear, oropharynx clear, airway patent Neck: supple, no adenopathy, no masses. Good range of motion Lungs: Tachypneic, shallow/short breaths with coarse breath sounds. CVS: Regular rate and rhythm no murmur gallop or rub Abdomen: Soft, active, nontender, no masses, no hepatosplenomegaly Ext: No edema, clubbing or cyanosis. Neuro: Alert and responsive, moving all 4 extremities on command, cranial nerves intact, no focal findings Skin: Intact no open lesions, no rash Course - Re-evaluation Re-evalutation: 12/07/19 15:33 Patient was given nebulizer treatment and IV Solu-Medrol, seems to be improving. I have encouraged him to get the prescription filled to continue nebulizer treatments at home and to follow-up with his primary care doctor as needed. Knows that he sees a tanker driver and his nebulizer does not work at home. I have suggested that he contact them by phone tomorrow and let them know that he has had 2 ER visits in which she needed nebulizer treatment. Patient raymond owledges understanding of this plan and states that he will call this tanker driver. - Vital Signs Vital signs: Temp Pulse Resp BP Pulse Ox 97.6 F 24 H 106/63 97 12/07/19 12:34 12/07/19 12:38 12/07/19 12:38 12/07/19 12:38 - Laboratory Result Diagrams: 12/07/19 12:42 12/07/19 12:42 Laboratory results interpreted by me: 12/07/19 12/07/19 12:42 12:42 RBC 3.87 L Hgb 13.2 L MCV 102 H MCH 34.1 H RDW 15.9 H Lymph % (Auto) 5.7 L Absolute Neuts (auto) 9.2 H Seg Neutrophils % 91.2 H Sodium 135.1 L Chloride 96 L BUN 29 H Glucose 118 H 12/07/19 15:33 I have reviewed laboratory data and used this information for the treatment decisions regarding the patient. - Diagnostic Test Radiology reviewed: Image reviewed, Reports reviewed Radiology results interpreted by me: 12/07/19 15:34 Chest X-Ray 12/07/19 12:36 IMPRESSION: Chronic obstructive lung disease upper lobes, with mid and lower lung fibrosis. Chronic elevation left hemidiaphragm. No acute findings - EKG Interpretation by Me Rate: Normal - EKG interpreted by Dr. Kwon: Normal sinus rhythm, rate 82, MD interval 148 ms, QT interval 392, normal axis, occasional PVC, no acute ST or T wave abnormalities seen, no ischemic findings., LVH, no acute ST or T wave abnormalities, compared to prior EKG 12/06/2019, there are no acute interval changes. Discharge - Discharge Clinical Impression: Pulmonary fibrosis, Shortness of breath COPD (chronic obstructive pulmonary disease) Qualifiers: COPD type: unspecified COPD Qualified Code(s): J44.9 - Chronic obstructive pulmonary disease, unspecified Condition: Good Disposition: HOME, SELF-CARE Instructions: Chronic Obstructive Lung Disease ([facility]) Additional Instructions: You are seen in the emergency department this afternoon with shortness of breath and difficulty breathing secondary to pulmonary fibrosis and COPD. Please get the prescriptions that you given last evening and continue to take those. Please contact your tanker driver regarding your nebulizer at home. Follow-up with your primary doctor as needed. If symptoms are worsening or if you have other concerns you may return to the emergency department for further evaluation and treatment. HOME CARE INSTRUCTIONS & INFORMATION: Thank you for choosing us for your medical needs. We hope you're satisfied with the care you received. After you leave, you must properly care for your problem and, at the same time, observe its progress. Any condition can change. Some illnesses can change rapidly over hours or days. If your condition worsens, return to the Emergency Department or see your physician promptly. ABOUT YOUR X-RAYS AND EKG'S: If you had an EKG or X-rays taken, they have been read by the Emergency Physician. The X-rays and EKG's will also be read by a Radiologist or Label Pinker within 24 hours. If discrepancies are noted, you will be notified by telephone. Please be certain the ED has a correct telephone number & address where you can be reached. Also, realize that some fractures or abnormalities do not show up on initial X-rays. If your symptoms continue, see your physician. ABOUT YOUR LABORATORY TEST: If you had laboratory tests, the results have been reviewed by the Emergency Physician. Some test results (for example cultures) may not be available for several days. You will be contacted if any test result shows you need additional treatment. Please be certain the ED has a correct telephone number and address where you can be reached. ABOUT YOUR MEDICATIONS: You will receive instructions on how to take your medicine on the prescription label you receive. Additional information may be provided by the Pharmacy. If you have questions afterwards, call the ED for clarification or further instructions. Some prescribed medications may cause drowsiness. Do not perform tasks such as driving a car or operating machinery without consulting your Pharmacist. If you feel you need a refill of pain medication, your condition will need re-evaluation. Please do not call for a refill of any medication. ABOUT YOUR SIGNATURE: Signature of this document acknowledges to followin. Understanding that you received emergency treatment and that you may be released before al medical problems are known or treated. Please be certain the ED has a correct phone number & address where you can be reached. 2. Acknowledgement that you will arrange for follow-up care as recommended. 3. Authorization for the Emergency Physician to provide information to your follow-up Physician in order to maximize your care. AT ANY TIME, IF YOUR SYMPTOMS CHANGE SIGNIFICANTLY OR WORSEN OR YOU DEVELOP NEW SYMPTOMS, RETURN TO THE EMERGENCY DEPARTMENT IMMEDIATELY FOR RE-EVALUATION. OUR GOAL IS TO PROVIDE EXCELLENT MEDICAL CARE! WE HOPE THAT WE HAVE MET YOUR EXPECTATIONS DURING YOUR EMERGENCY DEPARTMENT VISIT AND THAT YOU FEEL YOU HAVE RECEIVED EXCELLENT CARE! Referrals: DEVONTE BUENO NP [Primary Care Provider] - Follow up as needed
--- NOTE | 2019-12-07 16:31 | EKG REPORT ---
SEVERITY:- OTHERWISE NORMAL ECG - SINUS RHYTHM ATRIAL PREMATURE COMPLEX : Confirmed by: Eleanor Grant 07-Dec-2019 16:30:43
[2019-12-07 21:30] VITALS: BP 113/57
== END 2019-12-07 21:30 | disposition home or self-care (01) ==
LOC: ER 12:28
DX: J84.10 Pulmonary fibrosis, unspecified (principal); J44.9 Chronic obstructive pulmonary disease, unspecified; R06.02 Shortness of breath; I50.9 Heart failure, unspecified; I11.0 Hypertensive heart disease with heart failure; F17.200 Nicotine dependence, unspecified, uncomplicated; Z99.81 Dependence on supplemental oxygen
CPT/HCPCS: 93005; 94640; 99285; 96374; 36415; 85025; 80053; 84484; 71045; 93010; J2930

== ENCOUNTER 2019-12-31 22:10 | Emergency (ER) | payer MEDICARE, OTHER ==
[2019-12-31] MEDS ORDERED: HYDROCODONE/ACETAMINOPHEN 5-325 MG TABLET PO ONE (22:41)
--- NOTE | 2019-12-31 22:41 | ER Document Report ---
ED Respiratory Problem - General TRAVEL OUTSIDE OF THE [place] IN LAST 30 DAYS: No <MICHAEL HARO - Last Filed: 01/01/20 07:50> <NANCYAJIT IV - Last Filed: 01/01/20 11:11> - General Chief Complaint: Shortness Of Breath Stated Complaint: DIFFICULTY BREATHING Time Seen by Provider: 12/31/19 22:22 Primary Care Provider: DEVONTE BUENO NP [Primary Care Provider] - Follow up as needed Notes: Patient is a 79-year-old male with a history of COPD and pulmonary fibrosis that comes emergency department by EMS for chief complaint of shortness of breath. Patient states that just prior to arrival he started feeling out of breath, he noticed that his oxygen concentrator was not concentrating correctly, he is normally on 10 L nasal cannula at all times, he could not get the concentrator to give above 8 L at any time. He states he also started noticed he was getting hypoxic when he checked. He states that he "panicked" and began rushing around checking his oxygen tanks, he states he started feeling tightness in his chest when this happened. EMS arrived, placed patient on CPAP, oxygen saturation returned to normal. Patient now currently has no complaints sitting on 10 L nasal cannula. He denies shortness of breath, chest pain, fever, nausea/ vomiting, dizziness. He continues to smoke. He states that without his oxygen concentrator working he does not have enough oxygen tanks left to last him until tomorrow when the small engine technician could come. (MICHAEL HARO) - Related Data Allergies/Adverse Reactions: No Known Allergies Allergy (Verified 12/31/19 22:17) Past Medical History - General Information source: Patient - Social History Smoking Status: Current Every Day Smoker Smoking Education Provided: Yes - <3 min Frequency of alcohol use: None Drug Abuse: None Lives with: Family Family History: Reviewed & Not Pertinent, Hypertension - Past Medical History Cardiac Medical History: Reports: Hx Congestive Heart Failure, Hx Hypertension Pulmonary Medical History: Reports: Hx COPD Renal/ Medical History: Reports: Hx Benign Prostatic Hyperplasia. Denies: Hx Peritoneal Dialysis Psychiatric Medical History: Reports: Hx Depression Past Surgical History: Reports: Hx Orthopedic Surgery - C-Spine fusion - Immunizations Hx Diphtheria, Pertussis, Tetanus Vaccination: Yes Hx Pneumococcal Vaccination: 11/20/15 <MICHAEL HARO - Last Filed: 01/01/20 07:50> Review of Systems - Review of Systems Constitutional: No symptoms reported EENT: No symptoms reported Cardiovascular: No symptoms reported Respiratory: See HPI Gastrointestinal: No symptoms reported Genitourinary: No symptoms reported Male Genitourinary: No symptoms reported Musculoskeletal: No symptoms reported Skin: No symptoms reported Hematologic/Lymphatic: No symptoms reported Neurological/Psychological: See HPI <LOKESHJOSE RAFAELMICHAEL - Last Filed: 01/01/20 07:50> Physical Exam <LOKESHJOSE RAFAELMICHAEL - Last Filed: 01/01/20 07:50> - Vital signs Vitals: Resp BP Pulse Ox 16 107/73 95 12/31/19 22:09 12/31/19 22:09 12/31/19 22:09 - Notes Notes: GENERAL: Alert, interacts well. No acute distress. Somewhat chronically ill- appearing HEAD: Normocephalic, atraumatic. EYES: Pupils equal, round, and reactive to light. Extraocular movements intact. ENT: Oral mucosa moist, tongue midline. Oropharynx unremarkable. Airway patent. Nares patent, sinuses non-tender, ear canals unremarkable, TM's intact. NECK: Full range of motion. Supple. Trachea midline. No lymphadenopathy. LUNGS: Decreased breath sounds bilaterally and what sounds like rales in both lower lung kulkarni. No labored breathing or tachypnea, speaks in full sentences, no signs of distress. HEART: Regular rate and rhythm. No murmur ABDOMEN: Soft, non-tender. Non-distended. EXTREMITIES: Moves all 4 extremities spontaneously. No edema, normal radial and dorsalis pedis pulses bilaterally. No cyanosis. BACK: no cervical, thoracic, lumbar midline tenderness. No saddle anesthesia, normal distal neurovascular exam. Moves all extremities in full range of motion. NEUROLOGICAL: Alert and oriented x3. Normal speech. Cranial nerves II through XII grossly intact. Strength 5/5 in all extremities. PSYCH: Normal affect, normal mood. SKIN: Warm, dry, normal turgor. No rashes or lesions noted. (MICHAEL HARO) Course - Laboratory Result Diagrams: 12/31/19 22:23 12/31/19 22:23 <MICHAEL HARO - Last Filed: 01/01/20 07:50> - Laboratory Result Diagrams: 12/31/19 22:23 12/31/19 22:23 <AJIT CRUZ IV - Last Filed: 01/01/20 11:11> - Re-evaluation Re-evalutation: Patient has no complaints on my evaluation. He has abnormal lung sounds which sound like rales on exam but I am unsure if this is chronic with his history of pulmonary fibrosis. No lower extremity swelling. No fever. CBC, chemistry, venous blood gas, troponin unremarkable. Chest x-ray with dextrocardia which is of course present with prior x-rays and chronic lung changes with no obvious acute changes. From a medical standpoint patient is cleared, however patient states that until the small engine technician fixes his oxygen concentrator he cannot go home because he does not have enough oxygen to last him for a long time given he uses 10 L nasal cannula at all times. As result patient will need to stay here as a social hold temporarily with shoe parts caser consult, hopefully we can make sure the small engine technician performs the substitutions with patient to go home. Discussed with Dr. Williamson. Discussed with patient. Patient states appreciation and agreement. (MICHAEL HARO) 01/01/20 11:09 Patient was discussed with Dr. Williamson this morning at 6 AM during checkout. The only reason the patient is still in the emergency department and is because he is waiting for a home O2 supply to be replenished at his residence. This MD wound was just notified by nursing that home health has dropped off the wound home O2 and that he has relatives coming to get him with O2 when their vehicle. The plan at this point is to discharge the patient and escort him out to the vehicle he is going home and with O2, switch him over to O2 getting a vehicle and let him go home. Patient was made aware of this plan and is comfortable wit h being discharged home. (AJIT CRUZ IV) - Vital Signs Vital signs: Temp Pulse Resp BP Pulse Ox 97.3 F 84 19 110/45 L 99 01/01/20 06:23 01/01/20 06:23 01/01/20 06:23 01/01/20 06:23 01/01/20 06:23 - Laboratory Laboratory results interpreted by me: 12/31/19 12/31/19 22:23 22:23 RBC 3.22 L Hgb 10.9 L Hct 32.9 L MCV 102 H MCH 33.8 H RDW 16.2 H Sodium 134.1 L BUN 30 H - EKG Interpretation by Me Additional EKG results interpreted by me: EKG shows sinus rhythm at a rate of 82, normal axis, no T wave inversions or systemic changes in consecutive leads, QTC 425 (MICHAEL HARO) Discharge <MICHAEL HARO - Last Filed: 01/01/20 07:50> <AJIT CRUZ IV - Last Filed: 01/01/20 11:11> - Discharge Clinical Impression: Shortness of breath, Has run out of medications Condition: Stable Disposition: HOME, SELF-CARE Additional Instructions: Your evaluation tonight does not show any concerning findings. Follow-up with your primary care provider for additional management, follow-up with your director compliance for additional equipment and refills. Return if you worsen including fever, difficulty breathing, chest pain, or if something is not right. Referrals: DEVONTE BUENO, L[employer] M[employer] SETTER [Primary Care Provider] - Follow up as needed
[2019-12-31 22:51] LABS: HEMATOCRIT 32.9 % (37.9-51.0); HEMOGLOBIN 10.9 g/dL (13.5-17.0); MEAN CORPUSCULAR HEMOGLOBIN 33.8 pg (27.0-33.4); MEAN CORPUSCULAR HGB CONC 33.1 g/dL (32.0-36.0); MEAN CORPUSCULAR VOLUME 102 fl (80-97); PLATELET COUNT 257 10^3/uL (150-450); RED BLOOD COUNT 3.22 10^6/uL (4.35-5.55); RED CELL DISTRIBUTION WIDTH 16.2 % (11.5-14.0)
[2019-12-31 23:02] LABS: ALBUMIN 3.7 g/dL (3.5-5.0); ALKALINE PHOSPHATASE 50 U/L (38-126); ANION GAP 8 (5-19); ASPARTATE AMINO TRANSFERASE 23 U/L (17-59); BILIRUBIN,DIRECT 0.1 mg/dL (0.0-0.4); BILIRUBIN,TOTAL 0.3 mg/dL (0.2-1.3); BLOOD UREA NITROGEN 30 mg/dL (7-20); CALCIUM 9.3 mg/dL (8.4-10.2); CARBON DIOXIDE 28 mmol/L (22-30); CHLORIDE 98 mmol/L (98-107); GLUCOSE 108 mg/dL (75-110); POTASSIUM 4.5 mmol/L (3.6-5.0); TOTAL PROTEIN 6.6 g/dL (6.3-8.2)
[2019-12-31 23:10] LABS: NT PRO BNP 303 pg/mL (<450)
[2019-12-31 23:11] LABS: TROPONIN I < 0.012 ng/mL
[2019-12-31 23:14] LABS: ABSOLUTE LYMPHOCYTES# (MANUAL) 1.7 10^3/uL (0.5-4.7); ABSOLUTE MONOCYTES # (MANUAL) 0.4 10^3/uL (0.1-1.4); BASOPHILS % (MANUAL) 0 % (0-2); EOSINOPHILS % (MANUAL) 3 % (0-6); LYMPHOCYTES % (MANUAL) 24 % (13-45); MONOCYTES % (MANUAL) 6 % (3-13); SEGMENTED NEUTROPHILS % (MAN) 67 % (42-78); TOTAL CELLS COUNTED 100
[2019-12-31 23:15] LABS: ANISOCYTOSIS 1+; PLATELET COMMENT ADEQUATE
--- NOTE | 2019-12-31 23:38 | RADIOLOGY REPORT (SQ) ---
EXAM DESCRIPTION: XR CHEST 1 VIEW COMPLETED DATE/TME: 12/31/2019 23:16 CLINICAL HISTORY: 79 years, Male, shortness of breath, rales on exam COMPARISON: December 07, 2019 NUMBER OF VIEWS: 1 TECHNIQUE: Portable AP upright view of the chest was obtained at 11:10 PM LIMITATIONS: None. FINDINGS: There is stable cardiac enlargement. Emphysematous and fibrotic changes are again identified. No acute superimposed airspace opacity is seen. There is chronic elevation of the left hemidiaphragm. There is no evidence of pleural effusion or pneumothorax. IMPRESSION: Stable, chronic findings as above. No acute superimposed abnormality is seen. copyright 2010 [employer]- All Rights Reserved
[2020-01-01 00:59] LABS: VENOUS BLOOD BASE EXCESS -3.2 mmol/L; VENOUS BLOOD PCO2 47.4 mmHg (35-63); VENOUS BLOOD PH 7.3 (7.30-7.42)
[2020-01-01 12:46] VITALS: BP 134/64
--- NOTE | 2020-01-02 00:35 | EKG REPORT ---
SEVERITY:- OTHERWISE NORMAL ECG - SINUS RHYTHM LOW VOLTAGE IN FRONTAL LEADS : Confirmed by: Eleanor Grant 02-Jan-2020 00:34:20
--- OUTSIDE RECORDS SUMMARY | 2020-01-02 14:48 | XMS REPORT ---
:1940 [facility] [address] [place] [address] Care Team Providers Name Role Phone Nida Coe Primary Care Physician Unavailable ALLY DIAS Attending Clinician Unavailable Phil VAUGHN Attending Clinician Unavailable Patrick KING Attending Clinician Unavailable PATRICK Attending Clinician Unavailable Wendy KING Attending Clinician Unavailable Ankit NGUYEN Attending Clinician Unavailable Tammy KING Attending Clinician Unavailable JUVENAL Attending Clinician Unavailable Jami JAIME Attending Clinician Unavailable nAkit JACKSON Attending Clinician Unavailable ELMIRA Attending Clinician Unavailable Magdy KING Attending Clinician Unavailable Skylar ARCEO Attending Clinician Unavailable LILIANE JACKSON Attending Clinician Unavailable RENETTA Attending Clinician Unavailable KEMAL KU Attending Clinician Unavailable CARMELO Attending Clinician Unavailable Jami LOZA PA-C Attending Clinician Unavailable Suzanne SORIANO Attending Clinician Unavailable LILIANE SUAZO Attending Clinician Unavailable RICKEY Attending Clinician Unavailable Sapna BUENO Attending Clinician Unavailable Edelmira VILLAFANA Attending Clinician Unavailable Edelmira VENTURA Attending Clinician Unavailable Suzanne COE Attending Clinician Unavailable Phil VAUGHN Admitting Clinician Unavailable Ankit PERRY Admitting Clinician Unavailable Allergies, Adverse Reactions, Alerts This patient has no known allergies or adverse reactions. Medications Ordered Filled Start Stop Current Ordering Indication Dosage Frequency Signature Comments Components Medication Medication Date Date Medication? Clinician (SIG) Name Name Alfuzosin 2019- Yes Koffi Alfuzosin HCl ER 10 0-22 Tammy HCl ER 10 MG Oral 12:50: MD MG Oral Tablet 55 Tablet Extended Extended Release 24 Release 24 Hour Hour Take 2 tablets by mouth every day Quantity: 180 Refills: 2 Koffi Munoz MD Start : 0Active Myrbetriq 2020- Yes Koffi Myrbetriq 50 MG Oral 9-10 Tammy 50 MG Oral Tablet 12:14: MD Tablet Extended 13 Extended Release 24 Release 24 Hour Hour TAKE 1 TABLET BY MOUTH EVERY DAY Quantity: 90 Refills: 0 Koffi Munoz MD Start : 0Active metOLazone 2020-0 Yes Vince QD metOLazone 2.5 MG Oral 8- Patrick KING 2.5 MG Tablet 00:00: Oral 00 Tablet 1 tablet daily for 4 days and then twice a week Quantity: 30 Refills: 5 Vince Nguyen MD Start : 0Active Ipratropium 2019-0 No Mitra Ipratropiu [place] 09-04 Wendy prieto [place] 0.06 % 00:00: 0.06 % Nasal 00 Nasal Solution Solution 1-2 sprays each nostril twice daily Quantity: 3 Refills: 3 Mitra Nguyen MD Start : 0Active Myrbetriq 2019-0 No Koffi Myrbetriq 50 MG Oral 7- Tammy 50 MG Oral Tablet 12:52: Tablet Extended 09 Extended Release 24 Release 24 Hour Hour TAKE ONE TABLET BY MOUTH EVERY DAY Quantity: 30 Refills: 0 Koffi Munoz MD Start : 0Active ZTlido 1.8 2019-0 Yes ZTlido 1.8 % External 7-01 % External Patch 00:00: Patch 00 Quantity: 30 Refills: 0 Start : 20-Aug-2019 Active predniSONE 2019-0 No predniSONE 20 MG Oral 6-25 20 MG Oral Tablet 00:00: Tablet 00 Quantity: 50 Refills: 0 Start : 0Active Mupirocin 2 2019-0 No Mitra Mupirocin % External 6-04 Wendy 2 % Ointment 00:00: External 00 Ointment Apply a thin layer to both nostrils twice daily for 2 weeks Quantity: 1 Refills: 0 Mitra Nguyen MD Start : 24-Jul-2019 Active 15 GM Tube Spironolact 2019-0 No Vince Spironolac one 25 MG - Patrick KING tone 25 MG Oral Tablet 00:00: Oral 00 Tablet TAKE 1 TABLET DAILY (PATIENT TO STOP TAKING POTASSIUM) Quantity: 90 Refills: 3 Vince Nguyen MD Start : 26-May-2019 Active Spironolact 2019-0 No Vince Spironolac one 25 MG - Patrick KING tone 25 MG Oral Tablet 00:00: Oral 00 Tablet TAKE 1 TABLET DAILY (PATIENT TO STOP TAKING POTASSIUM) Quantity: 90 Refills: 3 Vince Nguyen MD Start : 26-May-2019 Active Albuterol No 2.5 Every 4 Hr Sulfate 2-12 By Resp 09:06: Therapy as 00 needed for Shortness Of Breath Albuterol 2020- No 2.5 Every 4 Hr Sulfate 2-12 05-20 By Resp (Proventil 09:06: 00:00 Therapy as Neb*) 2.5 00 :00 needed for Mg/3 Ml Shortness NEBU Of Breath Albuterol 2019- No 2.5 Every 4 Hr Sulfate 2-12 05-20 By Resp (Proventil 08:06: 00:00 Therapy as Neb*) 2.5 00 :00 needed for Mg/3 Ml Shortness NEBU Of Breath Colchicine Yes Colchicine 0.6 MG Oral - 0.6 MG Capsule 00:00: Oral 00 Capsule Quantity: 14 Refills: 0 Start : 0Active predniSONE No predniSONE 10 MG Oral - 10 MG Oral Tablet 00:00: Tablet 00 Quantity: 21 Refills: 0 Start : 0Active Prednisone 2018-02 2020- No 10 Taper 7 04-16 Day TAKE 4 17:17: 00:00 (40 MG)DAY 00 :00 1 & DAY 2, 3 (30 MG) DAY 3& DAY 4, 2 (20 MG) DAY 5 & Prednisone 2018-02 2020- No 10 Taper 7 (Deltasone 04-16 Day TAKE 4 Taper*) 10 17:17: 00:00 (40 MG)DAY Mg TABLET 00 :00 1 & DAY 2, 3 (30 MG) DAY 3& DAY 4, 2 (20 MG) DAY 5 & Colchicine 2018-02 2020- No .6 Once Per 04-16 Day 17:17: 00:00 00 :00 Colchicine 2018-02 2020- No .6 Once Per (Colcrys*) 04-16 Day 0.6 Mg 17:17: 00:00 TABLET 00 :00 Prednisone 2018-02 2020- No 10 Taper 7 (Deltasone 04-16 Day TAKE 4 Taper*) 10 16:17: 00:00 (40 MG)DAY Mg TABLET 00 :00 1 & DAY 2, 3 (30 MG) DAY 3& DAY 4, 2 (20 MG) DAY 5 & Colchicine 2018-02 2020- No .6 Once Per (Colcrys*) 04-16 Day 0.6 Mg 16:17: 00:00 TABLET 00 :00 Azelastine 2018-02 Karyn Rowley 1 Q0.5D Azelastine HCl - 0.1 % 1-14 Wendy HCl - 0.1 Nasal 00:00: MD % Nasal Solution 00 Solution USE 1 SPRAY IN EACH NOSTRIL TWICE DAILY. Quantity: 1 Refills: 3 Mitra Nguyen MD Start : 9Active 30 ML Bottle Indomethaci 2018-02- No 25 Three n (Indocin 1-11 -15 Times Per Cap*) 25 Mg 09:21: 00:00 Day CAPSULE 00 :00 Indomethaci 2018-02 No 25 Three n -11 -15 Times Per 09:21: 00:00 Day 00 :00 Indomethaci 2018-02 No 25 Three n (Indocin -12 20-15 Times Per Cap*) 25 Mg 08:21: 00:00 Day CAPSULE 00 :00 ferrous No 1 Q1D ferrous sulfate 325 9-19 sulfate mg (65 mg 00:00: 325 mg (65 iron) 00 mg iron) tablet Take tablet 1 tablet Take 1 every day tablet by oral every day route. by oral route. Escitalopra Yes 1 QD Escitalopr m Oxalate 5-17 am Oxalate 20 MG Oral 00:00: 20 MG Oral Tablet 00 Tablet TAKE 1 TABLET DAILY Refills: 0 Start : 9Active Azelastine Alessandra Rowley Azelastine HCl - 0.1 % -17 Wendy HCl - 0.1 Nasal 00:00: MD % Nasal Solution 00 Solution 1 SPRAY EACH NOSTRIL TWICE DAILY Quantity: 3 Refills: 3 Mitra Nguyen MD Start : 9Active 30 ML Bottle Clotrimazol 2018- No 1 Twice Per e (Lotrimin 10-29 Day 1% Cream*) 11:53: 00:00 15 Gm 00 :00 CREAM..G. Clotrimazol 2018- No 1 Twice Per e 10-29 Day 11:53: 00:00 00 :00 Clotrimazol 2017- No Bharat 1 Twice Per e (Lotrimin 10-29 09-25 Rivet Maker-Bc Day 1% Cream*) 00:00: 00:00 Green 15 Gm 00 :00 Cream..g., 1 Applic Applied To The Skin Rosuvastati Yes 1 QD Rosuvastat n Calcium 5 9-06 in Calcium MG Oral 00:00: 5 MG Oral Tablet 00 Tablet TAKE 1 TABLET DAILY Refills: 0 Start : 25-Oct-2017 Active Azithromyci 2018- No 1 2 Today & n -15 12- 1 Day 2-5 (Zithromax 13:45: 00:00 Z-Paolo*) 250 00 :00 Mg TABLET Azithromyci 2017- 2018- No 1 2 Today & n 15 01-28 1 Day 2-5 13:45: 00:00 00 :00 Prednisone 2017- No 10 Taper 7 (Deltasone 5-15 01-28 Day TAKE 4 Taper*) 10 13:38: 00:00 (40 MG)DAY Mg TABLET 00 :00 1 & DAY 2, 3 (30 MG) DAY 3& DAY 4, 2 (20 MG) DAY 5 & Prednisone 2017- No 10 Taper 7 5-15 12-10 Day TAKE 4 13:38: 00:00 (40 MG)DAY 00 :00 1 & DAY 2, 3 (30 MG) DAY 3& DAY 4, 2 (20 MG) DAY 5 & Azithromyci 2017- No Chris 1 2 Today & n 07-03 Pa-C 1 Day 2-5 (Zithromax 00:00: 00: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 Z-Paolo*) 250 00 :00 Mg Tablet, 1 Pkt Oral Prednisone 2017- No Chris 10 Taper 7 (Deltasone -15 - Pa-C Day Taper*) 10 00:00: 00: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 Mg Tablet, 00 :00 10 Mg Oral Hydrocodone 2019- No 5 Every 6 Bit/Homatro 5-12 05-13 Hours as pine 15:28: 00:00 needed for Methylb 00 :00 Cough (Hydromet Syrup*) 473 Ml SYRP Hydrocodone 2019- No 5 Every 6 Bit/Homatro 5-12 05-13 Hours as pine 15:28: 00:00 needed for Methylb 00 :00 Cough Benzonatate 2018- No 200 Three (Tessalon 5-12 12-10 Times Per Perles*) 15:27: 00:00 Day as 200 Mg 00 :00 needed for CAPSULE Cough Benzonatate 2018- No 200 Three 5-12 12-10 Times Per 15:27: 00:00 Day as 00 :00 needed for Cough Hydrocodone No Alexandra 5 Every 6 Bit/Homatro 5-12 Selley Do Hours as pine 00:00: needed for Methylb 00 Cough (Hydromet Syrup*) 473 Ml Syrp Benzonatate 2018- No Alexandra 200 Three (Tessalon 5-12 12-10 [place] Do Times Per Perles*) 00:00: 00:00 Day as 200 Mg 00 :00 needed for Capsule, Cough 200 Mg Oral Ofev 150 MG 0 Yes Q0.5D Ofev 150 Oral 2-15 MG Oral Capsule 00:00: Capsule 00 TAKE 1 CAPSULE TWICE DAILY. Refills: 0 Start : 7Active Spiriva Yes Spiriva Respimat 2-07 Respimat 2.5 MCG/ACT 00:00: 2.5 Inhalation 00 MCG/ACT Aerosol Inhalation Solution Aerosol Solution Quantity: 4 Refills: 0 Start : 28-Mar-2016 Active Loperamide Yes Loperamide HCl - 2 MG 1-31 HCl - 2 MG Oral 00:00: Oral Capsule 00 Capsule as needed Refills: 0 Start : 7Active Clindamycin 2015-02- No 450 Three Hcl 2-13 03-03 Times Per 15:43: 00:00 Day 00 :00 Clindamycin 2015-02- No 450 Three Hcl 2-13 03-03 Times Per (Cleocin 15:43: 00:00 Day Cap*) 150 00 :00 Mg CAP Clindamycin 2015-02- No 450 Three Hcl 2-13 03-03 Times Per (Cleocin 14:43: 00:00 Day Cap*) 150 00 :00 Mg CAP Clindamycin 2015-02 2017- No Maria D Hickey 450 Three Hcl 2-13 03- Rula King Times Per (Cleocin 00:00: 00:00 Day Cap*) 150 00 :00 Mg Cap, 450 Mg Oral Ciprofloxac 2015- No 500 Twice Per in Hcl 04-22 Day 14:28: 00:00 00 :00 Ciprofloxac 2015-2015- No 500 Twice Per in Hcl 04-22 Day (Cipro 14:28: 00:00 Tab*) 500 00 :00 Mg TABLET Metronidazo 2015- No 500 Twice Per le 04-22 TAKE (Flagyl*) 14:28: 00:00 WITH FOOD. 500 Mg 00 :00 DO NOT TABLET DRINK ANY ALCOHOL WHILE TAKING THIS Oxycodone/A 2015- No 1 Every 4 cetaminophe 04-22 Hours as n (Percocet 14:28: 00:00 needed for 5/325 Mg*) 00 :00 Pain No 5 Mg/325 Mg driving or TAB heavy lifting. May cause drowsiness . Metronidazo 2015- No 500 Twice Per le 04-22 Day TAKE 14:28: 00:00 WITH FOOD. 00 :00 DO NOT DRINK ANY ALCOHOL WHILE TAKING THIS Oxycodone/A 2015- No 1 Every 4 cetaminophe 04-22 Hours as n 14:28: 00:00 needed for 00 :00 Pain No driving or heavy lifting. May cause drowsiness . Ciprofloxac 2015- No 500 Twice Per in Hcl 04-22 Day (Cipro 13:28: 00:00 Tab*) 500 00 :00 Mg TABLET Metronidazo 2015- No 500 Twice Per le 04-22 Day TAKE (Flagyl*) 13:28: 00:00 WITH FOOD. 500 Mg 00 :00 DO NOT TABLET DRINK ANY ALCOHOL WHILE TAKING THIS Oxycodone/A 2015- No 1 Every 4 cetaminophe 04-22 Hours as n (Percocet 13:28: 00:00 needed for 5/325 Mg*) 00 :00 Pain No 5 Mg/325 Mg driving or TAB heavy lifting. May cause drowsiness . Ciprofloxac 2015- No Chris V 500 Twice Per in Hcl 04-22 Pa-C Day (Cipro 00:00: 00:00 Kinstrey Tab*) 500 00 :00 Mg Tablet, 500 Mg Oral Metronidazo 2015- No Chris V 500 Twice Per le 04-22 Pa-C Day (Flagyl*) 00:00: 00:00 Kinstrey 500 Mg 00 :00 Tablet, 500 Mg Oral Oxycodone/A 2015- No Chris V 1 Every 4 cetaminophe 04-22 Pa-C Hours as n (Percocet 00:00: 00:00 Kinstrey needed for 5/325 Mg*) 00 :00 Pain 5 Mg/325 Mg Tab, 1 Tab Oral Ciprofloxac 2015- No Chris V 500 Twice Per in Hcl 04-22 Pa-C Day (Cipro 00:00: 00:00 Kinstrey Tab*) 500 00 :00 Mg Tablet, 500 Mg Oral oxyCODONE 2014-02 No oxyCODONE HCl - 10 MG 02-27 HCl - 10 Oral Tablet 00:00: MG Oral 00 Tablet TAKE 1 TABLET BY MOUTH FIVE TIMES A DAY NEEDED FOR PAIN Quantity: 150 Refills: 0 Start : 28-Dec-2014 Active Primidone Yes Q0.5D Primidone 50 MG Oral 5-18 50 MG Oral Tablet 00:00: Tablet 00 TAKE 1 TABLET TWICE DAILY. Refills: 0 Start : 5Active Ciprofloxac 2014- No 500 Twice Per in Hcl 07-05 Day (Cipro 13:25: 00:00 Tab*) 500 00 :00 Mg TABLET Metronidazo 2014- No 500 Three le 07-05 Times Per (Flagyl*) 13:25: 00:00 Day TAKE 500 Mg 00 :00 WITH FOOD. TABLET DO NOT DRINK ANY ALCOHOL WHILE TAKING THIS Ciprofloxac 2014- No 500 Twice Per in Hcl 07-05 Day 13:25: 00:00 00 :00 Metronidazo 2014-2014- No 500 Three le 07-05- Times Per 13:25: 00:00 Day TAKE 00 :00 WITH FOOD. DO NOT DRINK ANY ALCOHOL WHILE TAKING THIS Ciprofloxac 2014- No Zaid Mae 500 Twice Per in Hcl 07-05 Md Day (Cipro 00:00: 00:00 Tab*) 500 00 :00 Mg Tablet, 500 Mg Oral Metronidazo No Zaid Mae 500 Three le 07-05-15 Md Times Per (Flagyl*) 00:00: 00:00 Day 500 Mg 00 :00 Tablet, 500 Mg Oral Ciprofloxac 2014- No Zaid Ame 500 Twice Per in Hcl 07-05-15 Md Day (Cipro 00:00: 00:00 Tab*) 500 00 :00 Mg Tablet, 500 Mg Oral Alfuzosin 2011-02 No [place] Alfuzosin HCl ER 10 0-05 Magdy KING HCl ER 10 MG Oral 00:00: MG Oral Tablet 00 Tablet Extended Extended Release 24 Release 24 Hour Hour Take 2 tablets by mouth every day Quantity: 60 Refills: 11 [place] Curran MD Start : 24-Nov-2011 Active Finasteride Alessandra Rain Finasterid 5 MG Oral 10 Tammy e 5 MG Tablet 00:00: MD Oral 00 Tablet TAKE ONE TABLET BY MOUTH EVERY DAY Quantity: 90 Refills: 3 Koffi Munoz MD Start : 2Active Prednisone 2013- No 1 Taper 10 (Deltasone 10-25 Day TAKE Taper*) 10 12:47: 00:00 60MG THE Mg TABLET 00 :00 FIRST 2 DAYS THEN 40MG FOR THE NEXT 2 THEN 30MG FOR THE Prednisone 2013- No 1 Taper 10 10-25 Day TAKE 12:47: 00:00 60MG THE 00 :00 FIRST 2 DAYS THEN 40MG FOR THE NEXT 2 THEN 30MG FOR THE Prednisone 2013- Jeremiah L 1 Taper 10 (Deltasone 10-25 Liliane Juan Day Taper*) 10 00:00: 00:00 Mg Tablet, 00 :00 1 Dose Oral nystatin No 1applic Q1D nystatin 100,000 ation(s 100,000 unit/gram ) unit/gram topical topical powder powder Apply 1 Apply 1 application applicatio every day n every by topical day by route for topical 15 days. route for 15 days. primidone No primidone 50 mg 50 mg tablet Take tablet 2 tablets 3 Take 2 times a day tablets 3 by oral times a route. day by oral route. Albuterol No 2 Every 4 Sulfate Hours as (Proair needed for Hfa) 8.5 Gm Shortness Hfa.aer.ad Of Breath Alfuzosin No 10 Once Per Hcl Day (Uroxatral* ) 10 Mg Tab Alprazolam No 1 Three (Xanax*) 1 Times Per Mg Tablet Day Amlodipine No 2.5 Once Per Besylate Day (Norvasc*) 2.5 Mg Tablet Aripiprazol No 10 At Bedtime e (Abilify*) 5 Mg Tablet Aspirin No 81 Once Per (Ecotrin*) Day 81 Mg Tabec Cholecalcif No janet (Vitamin D3) (Vitamin D3) 5,000 Unit Tablet Cyanocobala No 2000 Once Per min Day (Vitamin B-12 Tab*) 1,000 Mcg Tablet Diclofenac No 1 Four Times Sodium Daily (Voltaren Gel*) 100 Gm Tube Escitalopra No 20 Once Per m Oxalate Day At (Lexapro*) Bedtime 10 Mg Tab Finasteride No 5 Once Per (Proscar*) Day 5 Mg Tablet Giner No 550 Once Per Extract Day Lidocaine No 3 At Bedtime (Lidoderm Patch) 5% Patch Loperamide No 2 As Needed Hcl as needed (Imodium for A-D*) 2 Mg Diarrhea Cap Magnesium No 250 Mg Tablet Naloxone No Hcl 0.4 Mg/1 Ml Syringe ProAir HFA No ProAir HFA 90 90 mcg/actuati mcg/actuat on aerosol ion inhaler aerosol Inhale 2 inhaler puffs every Inhale 2 4 hours by puffs inhalation every 4 route. hours by inhalation route. Nintedanib No 150 Twice Per Esylate Day (Ofev) 150 Mg Capsule Oxycodone No 10 Every 4 Hcl Hours (Oxycodone Hcl Er) 10 Mg Tab.er.12h Potassium No 595 Once Per Gluconate Day (Potassium Gluconate*) 2.5 Meq Tablet Solifenacin No 10 Once Per (Vesicare*) Day 10 Mg Tablet Aspirin No 81 Once Per (Ecotrin*) Day 81 Mg Tabec Cholecalcif No janet (Vitamin D3) (Vitamin D3) 5,000 Unit Tablet Oxycodone No 10 Every 4 Hcl Hours (Oxycodone Hcl Er) 10 Mg Tab.er.12h Benazepril No 10 Twice Per Hcl Day (Lotensin*) 10 Mg Tab Chlorthalid No 25 Once Per one Day (Hygroton*) 25 Mg Tab Fexofenadin No 180 Once Per e Hcl Day (Carrie 24 Hr Tab*) 180 Mg Tablet Fluticasone No 2 Once Per Propionate Day (Flonase 0.05% Nasal Prentiss*) 120 Prentiss/16 Gm Inha Ipratropium No 2 Twice Per [place] Day (Atrovent 0.03% Nasal Prentiss*) 30 Ml Prentiss Oxycodone No 10 5 Times Hcl Daily as (Roxicodone needed for *) 10 Mg Pain Tablet Primidone No 50 Three (Mysoline*) Times Per 50 Mg Tab Day Rosuvastati No 5 Once Per n Calcium Day (Crestor*) 5 Mg Tablet Tiotropium No 1 Once Per [place] Day (Spiriva*) 18 Mcg/Inhcap Ea Zaleplon No 10 Once Per (Sonata*) Day At 10 Mg Cap Bedtime as needed for Sleep Aripiprazol No 5 Once Per e Day At (Abilify*) Bedtime 10 Mg Tab Albuterol No 2 Every 4 Sulfate Hours as (Proair needed for Hfa) 8.5 Gm Shortness Hfa.aer.ad Of Breath Finasteride No 5 Once Per (Proscar*) Day 5 Mg Tablet rosuvastati No rosuvastat n 5 mg in 5 mg tablet 1 tablet 1 tab po tab po daily daily Azelastine No 2 Twice Per Hcl Day (Astelin 137 Mcg/Prentiss Nasal*) 137 Mcg/0.137 Ml Prentiss.pump Bumetanide No 1 Once Per (Bumex*) 1 Day Mg Tab Cyclo/Chiquis No Ointment Lidocaine No 1 Four Times (Topicaine Daily as 5% needed for Anorectal Anal Gel*) 113 Irritation Gm Gel..gram. Multivitami No 1 Once Per ns/Minerals Day * (Multivitam ins/Mineral s Tab*) 400 Mcg Tablet Nystatin No (Nyamyc) 15 Gm Powder Tizanidine No 4 Every 8 Hcl Hours (Zanaflex*) 4 Mg Tablet Cetirizine No 10 Once Per Hcl (Zyrtec Day Tab*) 10 Mg Tab Ferrous No 65 Once Per Sulfate, Day Dried (Iron) 159 Mg Tablet.er Ketoconazol No 1 Once Per e (Nizoral Day 2% Cream*) 15 Gm Tube Melatonin No 3 Once Per (Melatonin* Day At ) 3 Mg Bedtime as Tab.rapdis needed for Insomnia Nicotine No 1 Once Per (Nicoderm*) Day 14 Mg/24 Hrs Patch Potassium No 10 Twice Per Chloride Day (Klor Con*) 10 Meq Tablet.er Potassium No 10 Twice Per Chloride Day Primidone No 100 Twice Per Day Rosuvastati No 5 At Bedtime n Calcium Solifenacin No 10 Once Per Day Tiotropium No 2.5 Once Per [place] Day Allopurinol No 100 Once Per Day Calcium No 1 Once Per Carbonate/V Day it D3 500/600* Cyanocobala No 3000 Once Per min Day Gabapentin No 300 Three Times Per Day Hydrocodone No 5 Every 8 Bit/Homatro Hours as pine needed for Methylb Cough Magnesium No 400 Once Per Oxide Day Mirabegron No 50 Once Per Day Nicotine No 1 5 Times Polacrilex Daily Potassium No 550 Once Per Gluconate Day 2.5 MEQ= 595MG Trazodone No 100 Once Per Hcl Day At Bedtime Zinc No 15 Once Per Sulfate Day Zolpidem No 12.5 Once Per Tartrate Day At Bedtime Spiriva No Spiriva Respimat Respimat 2.5 2.5 mcg/actuati mcg/actuat on solution ion for solution inhalation for Inhale 2 inhalation puffs every Inhale 2 day by puffs inhalation every day route. by inhalation route. Alfuzosin Yes 10 Once Daily Hcl After (Uroxatral* Breakfast ) 10 Mg TAB Allopurinol Yes 100 Once Per (Zyloprim*) Day 100 Mg TAB Aripiprazol No 5 Once Per e Day At (Abilify*) Bedtime 10 Mg TAB Azelastine Yes 2 Twice Per Hcl Day (Astelin 137 Mcg/Prentiss Nasal*) 137 Mcg/0.137 Ml SPRAY.PUMP Benazepril Yes 10 Twice Per Hcl Day (Lotensin*) 10 Mg TAB Bumetanide Yes 1 Daily With (Bumex*) 1 Evening Mg TAB Meal Calcium No 1 Once Per Carbonate/V Day it D3 500/600* (Oscal W/Vit D 500/600*) 1 Each TABLET Cholecalcif No 2000 Once Per janet Day (Vitamin D3*) 2,000 Units TAB Cyanocobala No 3000 Once Per min Day (Vitamin B-12 Tab*) 1,000 Mcg TABLET Escitalopra No 20 Once Per m Oxalate Day At (Lexapro*) Bedtime 10 Mg TAB Ferrous No 65 Once Per Sulfate, Day Dried (Iron) 159 Mg TABLET.ER Finasteride Yes 5 Once Per (Proscar*) Day 5 Mg TABLET Gabapentin Yes 100 Twice Per (Neurontin* Day * ) 100 Mg STARTING CAPSULE 12/16 100mg BID x3 days, THEN 100mg DAILY x3 days, THEN NO Loperamide Yes 2 As Needed Hcl as needed (Imodium for A-D*) 2 Mg Diarrhea CAP Magnesium Yes 400 Once Per Oxide Day (Magox 400*) 400 Mg TAB Mirabegron No 50 Once Per (Myrbetriq* Day ) 50 Mg TAB.ER.24H Nintedanib Yes 150 Twice Per Esylate Day (Ofev) 150 Mg CAPSULE Oxycodone Yes 10 5 Times Hcl Daily (Roxicodone *) 10 Mg TABLET Primidone Yes 50 Twice Per (Mysoline*) Day 50 Mg TAB Rosuvastati Yes 5 At Bedtime n Calcium (Crestor*) 5 Mg TABLET Spironolact Yes 25 Once Per one Day (Aldactone* ) 25 Mg TAB Tiotropium Yes 2 Once Per [place] Day (Spiriva Respimat*) 2.5 Mcg/Act MIST.INHAL Zinc Yes 15 Once Per Sulfate Day (Zinc Sulfate*) 220 Mg CAP Albuterol Yes 2.5 Three Sulfate Times Per (Proventil Day as Neb*) 2.5 needed for Mg/3 Ml Shortness NEBU Of Breath ICD-10 CODE: J98.9 Calcium Yes 1 Once Per Carbonate/V Day itamin D3 (Calcium 600 + Vit D 800 Tab) 1 Each TABLET Hydrocodone Yes 5 Every 6 Bit/Homatro Hours as pine needed for Methylb Cough (Hydromet Syrup*) 473 Ml SYRP Ipratropium Yes Twice Per [place] Day (Atrovent 0.06% Nasal Prentiss*) 15 Ml SPRAY Albuterol No 2 Every 4 Sulfate Hours as needed for Shortness Of Breath Alfuzosin No 20 Once Per Hcl Day Aripiprazol No 5 Once Per e Day At Bedtime Aspirin No 81 Once Per Day Azelastine No 2 Twice Per Hcl Day Benazepril No 10 Twice Per Hcl Day Bumetanide No 1 Every Other Day Cetirizine No 10 Once Per Hcl Day Chlorthalid No 25 Once Per one Day Cholecalcif No 1 Once Per janet Day (Vitamin D3) Diclofenac No 1 Four Times Sodium Daily as needed for Pain Escitalopra No 20 Once Per m Oxalate Day At Bedtime Ferrous No 65 Once Per Sulfate, Day Dried Finasteride No 5 Once Per Day Ipratropium No 2 Four Times [place] Daily as needed for Shortness Of Breath Ketoconazol No 1 Once Per e Day APPLY A THIN FILM TO THE AFFECTED AREA Loperamide No 2 As Needed Hcl as needed for Diarrhea Melatonin No 3 Once Per Day At Bedtime as needed for Insomnia Multivitami No 1 Once Per ns/Minerals Day * Nicotine No 1 Once Per Day Nintedanib No 150 Twice Per Esylate Day take before meals Nystatin No Oxycodone No 10 5 Times Hcl Daily lidocaine 5 No lidocaine % topical 5 % ointment topical apply to ointment affected apply to area(s) up affected to four area(s) up times to four daily. times daily. ipratropium No ipratropiu bromide 42 m bromide mcg (0.06 42 mcg %) nasal (0.06 %) spray nasal spray naproxen No naproxen 500 mg 500 mg tablet tablet ferrous No 1 Q1D ferrous sulfate 325 sulfate mg (65 mg 325 mg (65 iron) mg iron) tablet Take tablet 1 tablet Take 1 every day tablet by oral every day route. by oral route. melatonin 3 No 1 Q1D melatonin mg tablet 3 mg Take 1 tablet tablet Take 1 every day tablet by oral every day route. by oral route. naproxen No 1 BID naproxen 250 mg 250 mg tablet Take tablet 1 tablet Take 1 twice a day tablet by oral twice a route as day by needed. oral route as needed. Tylenol No 2 Q4H Tylenol Extra Extra Strength Strength 500 mg 500 mg tablet Take tablet 2 tablets Take 2 every 4 tablets hours by every 4 oral route hours by as needed. oral route as needed. Myrbetriq No 1 Q1D Myrbetriq 50 mg 50 mg tablet,exte tablet,ext nded ended release release Take 1 Take 1 tablet tablet every day every day by oral by oral route. route. nicotine 7 No nicotine 7 mg/24 hr mg/24 hr daily daily transdermal transderma patch qd l patch qd Zyrtec 10 No Zyrtec 10 mg capsule mg capsule 1 po qd 1 po qd nicotine 21 No nicotine mg/24 hr 21 mg/24 daily hr daily transdermal transderma patch l patch Suprax 400 No Suprax 400 mg capsule mg capsule mupirocin 2 No mupirocin % topical 2 % ointment topical ointment nicotine No nicotine (polacrilex (polacrile ) 4 mg x) 4 mg buccal buccal lozenge use lozenge as directed use as directed piroxicam No 1capsul Q1D piroxicam 10 mg e(s) 10 mg capsule capsule Take 1 Take 1 capsule capsule every day every day by oral by oral route for route for 30 days. 30 days. triamcinolo No triamcinol ne one acetonide acetonide 0.1 % 0.1 % topical topical cream cream potassium No potassium gluconate gluconate 550 mg (90 550 mg (90 mg) tablet mg) tablet Take by Take by oral route. oral route. allopurinol No allopurino 100 mg l 100 mg tablet 1 by tablet 1 mouth daily by mouth daily colchicine No colchicine 0.6 mg 0.6 mg tablet tablet prednisone No prednisone 20 mg 20 mg tablet tablet albuterol No albuterol sulfate 2.5 sulfate mg/3 mL 2.5 mg/3 (0.083 %) mL (0.083 solution %) for solution nebulizatio for n used as nebulizati directed on used as directed gabapentin No BID gabapentin 100 mg 100 mg capsule capsule Take twice Take twice a day by a day by oral route oral route for 30 for 30 days. days. gabapentin No gabapentin 300 mg 300 mg capsule capsule indomethaci No indomethac n 25 mg in 25 mg capsule capsule albuterol No albuterol sulfate HFA sulfate 90 HFA 90 mcg/actuati mcg/actuat on aerosol ion inhaler aerosol Inhale 2 inhaler puffs every Inhale 2 4 hours by puffs inhalation every 4 route. hours by inhalation route. colchicine No colchicine 0.6 mg 0.6 mg capsule capsule prednisone No prednisone 10 mg 10 mg tablet tablet Benazepril Yes 1 Q0.5D Benazepril HCl - 10 MG HCl - 10 Oral Tablet MG Oral Tablet TAKE 1 TABLET TWICE DAILY Refills: 0 Active Allopurinol Yes 1 QD Allopurino 100 MG Oral l 100 MG Tablet Oral Tablet TAKE 1 TABLET DAILY. Refills: 0 Active Abilify 5 Yes 1 QD Abilify 5 MG Oral MG Oral Tablet Tablet TAKE 1 TABLET DAILY. Refills: 0 Active Calcium Yes 1 QD Calcium TABS TABS TAKE 1 TABLET DAILY Refills: 0 Active Iron 325 Yes QD Iron 325 (65 Fe) MG (65 Fe) MG Oral Tablet Oral Tablet TAKE 1 TABLET DAILY DIRECTED. Refills: 0 Active Vitamin Yes 1 QD Vitamin B-12 ER B-12 ER 2000 MCG 2000 MCG Oral Tablet Oral Extended Tablet Release Extended Release TAKE 1 TABLET DAILY. Refills: 0 Active Vitamin D3 Yes 1 QD Vitamin D3 TABS TABS TAKE 1 TABLET DAILY Refills: 0 Active Zinc TABS Yes 1 QD Zinc TABS TAKE 1 TABLET DAILY. Refills: 0 Active Doxycycline No Q12H Doxycyclin Hyclate 100 e Hyclate MG Oral 100 MG Tablet Oral Tablet TAKE 1 TABLET EVERY 12 HOURS DAILY. Refills: 0 Active Gabapentin Yes 1 Q0.3333D Gabapentin 300 MG Oral 300 MG Capsule Oral Capsule TAKE 1 CAPSULE 3 TIMES DAILY Refills: 0 Active ProAir HFA Yes ProAir HFA 108 (90 108 (90 Base) Base) MCG/ACT MCG/ACT Inhalation Inhalation Aerosol Aerosol Solution Solution Refills: 0 Active Probiotic Yes 1 QD Probiotic Oral Oral Capsule Capsule TAKE 1 CAPSULE DAILY Refills: 0 Active Zolpidem Yes 1 Zolpidem Tartrate ER Tartrate 12.5 MG ER 12.5 MG Oral Tablet Oral Extended Tablet Release Extended Release TAKE 1 TABLET AT BEDTIME. Refills: 0 Active Voltaren 1 No Voltaren 1 % GEL % GEL Refills: 0 Active Magnesium No 1 QD Magnesium 400 MG CAPS 400 MG CAPS TAKE 1 CAPSULE DAILY Refills: 0 Active Mucinex 600 No 1 Q0.5D Mucinex MG Oral 600 MG Tablet Oral Extended Tablet Release 12 Extended Hour Release 12 Hour TAKE 1 TABLET TWICE DAILY Refills: 0 Active Atrovent No Atrovent 0.06 % SOLN 0.06 % SOLN Refills: 0 Active traZODone Yes traZODone HCl - 100 HCl - 100 MG Oral MG Oral Tablet Tablet Refills: 0 Active HYDROcodone No HYDROcodon -Homatropin e-Homatrop e 5-1.5 ine 5-1.5 MG/5ML Oral MG/5ML Syrup Oral Syrup Refills: 0 Active Albuterol No Albuterol Sulfate Sulfate (2.5 (2.5 MG/3ML) MG/3ML) 0.083% 0.083% Inhalation Inhalation Nebulizatio Nebulizati n Solution on Solution Refills: 0 Active Bumetanide No Vince Bumetanide 1 MG Oral Nguyen MD 1 MG Oral Tablet Tablet Take 2mg each morning and 1mg each afternoon Quantity: 90 Refills: 3 Vince Nguyen MD Active [facility] Yes Vince [facility] Magnesium Patrick KING Magnesium Complex 400 Complex MG Oral 400 MG Capsule Oral Capsule Take one tablet daily Quantity: 90 Refills: 3 Vince Nguyen MD Active Bumetanide Yes Vince Bumetanide 1 MG Oral Patrick KING 1 MG Oral Tablet Tablet Take 2mg each morning and 1mg each afternoon Quantity: 90 Refills: 11 Vince Nguyen MD Active alfuzosin No alfuzosin ER 10 mg ER 10 mg tablet,exte tablet,ext nded ended release 24 release 24 hr Take 1 hr Take 1 tablet tablet every day every day by oral by oral route for route for 90 days. 90 days. aripiprazol No aripiprazo e 2 mg le 2 mg tablet Take tablet by oral Take by route for oral route 14 days. for 14 days. escitalopra No escitalopr m 20 mg am 20 mg tablet tablet hydrocodone No hydrocodon -homatropin e-homatrop e 5 mg-1.5 ine 5 mg/5 mL mg-1.5 oral syrup mg/5 mL Take by oral syrup oral route Take by for 16 oral route days. for 16 days. Mirabegron 2020- No 50 Once Per (Myrbetriq* 12-18 Day ) 50 Mg 00:00 TAB.ER.24H :00 Aripiprazol 2020- No 5 Once Per e 12-16 Day At (Abilify*) 00:00 Bedtime 10 Mg TAB :00 Calcium 2020- No 1 Once Per Carbonate/V it D3 00:00 500/600* :00 (Oscal W/Vit D 500/600*) 1 Each TABLET Cholecalcif 2020- No 2000 Once Per janet 12-16 Day (Vitamin 00:00 D3*) 2,000 :00 Units TAB Cyanocobala 2020- No 3000 Once Per min 12-16 Day (Vitamin 00:00 B-12 Tab*) :00 1,000 Mcg TABLET Escitalopra 2020- No 20 Once Per m Oxalate 12-16 Day At (Lexapro*) 00:00 Bedtime 10 Mg TAB :00 Ferrous 2020- No 65 Once Per Sulfate, 12-16 Day Dried 00:00 (Iron) 159 :00 Mg TABLET.ER Chlorthalid 2020- No 25 Once Per one 05-20 Day (Hygroton*) 00:00 25 Mg TAB :00 Cholecalcif 2020- No 1 Once Per janet -20 Day (Vitamin 00:00 D3) :00 (Vitamin D3) 5,000 Unit TAB.RAPDIS Diclofenac 2019- No 1 Four Times Sodium 05-20 Daily as (Voltaren 00:00 needed for Gel*) 100 :00 Pain Gm TUBE Gabapentin 2019- No 300 Three (Neurontin* 05-20 Times Per ) 300 Mg 00:00 Day CAPSULE :00 Hydrocodone 2019- No 5 Every 8 Bit/Homatro 05-20 Hours as pine 00:00 needed for Methylb :00 Cough (Hydromet Syrup*) 473 Ml SYRP Ipratropium 2019- No 2 Four Times [place] -20 Daily as (Atrovent 00:00 needed for 0.03% Nasal :00 Shortness Prentiss*) 30 Of Breath Ml SPRAY Nintedanib 2019- No 150 Twice Per Esylate 07-08 Day take (Ofev) 150 00:00 before Mg CAPSULE :00 meals Trazodone 2019- No 100 Once Per Hcl 07-08 Day At (Desyrel 00:00 Bedtime Ir*) 100 Mg :00 TABLET Zolpidem 2019- No 12.5 Once Per Tartrate 07-08 Day At (Ambien Cr 00:00 Bedtime Tab*) 6.25 :00 Mg TABCR Nicotine 2019- No 1 5 Times Polacrilex -15 Daily (Nicotine 00:00 Lozenge) 2 :00 Mg LOZNG.MINI Potassium 2019- No 550 Once Per Gluconate 06-03 Day 2.5 (Potassium 00:00 MEQ= 595MG Gluconate*) :00 2.5 Meq TABLET Albuterol 2019- No 2.5 Every 4 Sulfate 02-06 Hours as 00:00 needed for :00 Shortness Of Breath ICD-10 CODE: J98.9 Cholecalcif 2020- No 5000 Once Per janet 02-06 Day 00:00 :00 Albuterol 2020- No 2 Every 4 Sulfate 02-06 Hours as (Proair 00:00 needed for Hfa) 8.5 Gm :00 Shortness HFA.AER.AD Of Breath Albuterol 2020- No 2.5 Every 4 Sulfate 02-06 Hours as (Proventil 00:00 needed for Neb*) 2.5 :00 Shortness Mg/3 Ml Of Breath NEBU ICD-10 CODE: J98.9 Cholecalcif 2020- No 5000 Once Per janet 03-27 Day (Vitamin 00:00 D3) 2,000 :00 Unit TABLET Aspirin 2020- No 81 Once Per 03-05 Day 00:00 :00 Cetirizine 2020- No 10 Once Per Hcl 00:00 :00 Cholecalcif 2020- No janet 03-05 (Vitamin 00:00 D3) :00 Diclofenac 2020- No 1 Four Times Sodium 03-05 Daily 00:00 :00 Ketoconazol 2020- No 1 Once Per e 03-05 Day APPLY 00:00 A THIN :00 FILM TO THE AFFECTED AREA Melatonin 2020- No 3 Once Per 03-05 Day At 00:00 Bedtime as :00 needed for Insomnia Multivitami 2020- No 1 Once Per ns/Minerals 03-05 Day * 00:00 :00 Nicotine 2020- No 1 Once Per 03-05 Day 00:00 :00 Nystatin 2020- No 03-05 00:00 :00 Potassium 2020- No 10 Twice Per Chloride 00:00 :00 Solifenacin 2020- No 10 Once Per 00:00 :00 Tiotropium 2020- No 1 Once Per [place] 00:00 :00 Aspirin 2020- No 81 Once Per (Ecotrin*) 03-05 Day 81 Mg TABEC 00:00 :00 Cetirizine 2020- No 10 Once Per Hcl (Zyrtec 03-05 Day Tab*) 10 Mg 00:00 TAB :00 Cholecalcif 2020- No janet 03-05 (Vitamin 00:00 D3) :00 (Vitamin D3) 5,000 Unit TABLET Diclofenac 2020- No 1 Four Times Sodium 03-05 Daily (Voltaren 00:00 Gel*) 100 :00 Gm TUBE Ketoconazol 2020- No 1 Once Per e (Nizoral 03-05 Day APPLY 2% Cream*) 00:00 A THIN 15 Gm TUBE :00 FILM TO THE AFFECTED AREA Melatonin 2020- No 3 Once Per (Melatonin* 03-05 Day At ) 3 Mg 00:00 Bedtime as TAB.RAPDIS :00 needed for Insomnia Multivitami 2020- No 1 Once Per ns/Minerals 03-05 Day * 00:00 (Multivitam :00 ins/Mineral s Tab*) 400 Mcg TABLET Nicotine 2020- No 1 Once Per (Nicoderm*) 03-05 Day 14 Mg/24 00:00 Hrs PATCH :00 Nystatin 2020- No (Nyamyc) 15 -15 Gm POWDER 00:00 :00 Potassium 2019- No 10 Twice Per Chloride 03-05 Day (Klor Con*) 00:00 10 Meq :00 TABLET.ER Solifenacin 2020- No 10 Once Per (Vesicare*) 03-05 Day 10 Mg 00:00 TABLET :00 Tiotropium 2019- No 1 Once Per [place] 03-05 Day (Spiriva*) 00:00 18 :00 Mcg/Inhcap EA Alfuzosin 2019- No 10 Once Per Hcl 05-19 Day (Uroxatral* 00:00 ) 10 Mg :00 Tab, 10 Mg Oral Cyclo/Chiquis 2019- No Ointment , 05-19 00:00 :00 Lidocaine 2019- No 1 Four Times (Topicaine 05-19 Daily as 5% 00:00 needed for Anorectal :00 Anal Gel*) 113 Irritation Gm Gel..gram., 1 Applic In Rectum Tizanidine 2019- No 4 Every 8 Hcl 05-19 Hours (Zanaflex*) 00:00 4 Mg :00 Tablet, 4 Mg Oral Alfuzosin 2019- No 10 Once Per Hcl 05-19 Day (Uroxatral* 00:00 ) 10 Mg TAB :00 Lidocaine 2019- No 1 Four Times (Topicaine 05-19 Daily as 5% 00:00 needed for Anorectal :00 Anal Gel*) 113 Irritation Gm GEL..GRAM. Alfuzosin 2019- No 10 Once Per Hcl 05-19 Day 00:00 :00 Tizanidine 2019- No 4 Every 8 Hcl 05-19 Hours (Zanaflex*) 00:00 4 Mg TABLET :00 Cyclo/Chiquis 2019- No Ointment 05-19 00:00 :00 Lidocaine 2019- No 1 Four Times 05-19 Daily as 00:00 needed for :00 Anal Irritation Tizanidine 2019- No 4 Every 8 Hcl -31 Hours 00:00 :00 Cyanocobala 2018- No 2000 Once Per min 12-10 Day (Vitamin 00:00 B-12 Tab*) :00 1,000 Mcg Tablet, 2000 Mcg Oral Fexofenadin 2018- No 180 Once Per e Hcl 12-10 Day (Carrie 24 00:00 Hr Tab*) :00 180 Mg Tablet, 180 Mg Oral Fluticasone 2018- No 2 Once Per Propionate 12 Day (Flonase 00:00 0.05% Nasal :00 Prentiss*) 120 Prentiss/16 Gm Inha, 2 Prentiss Each Nostril Potassium 2018- No 595 Once Per Gluconate 01-28 Day (Potassium 00:00 Gluconate*) :00 2.5 Meq Tablet, 595 Mg Oral Zaleplon 2018- No 10 Once Per (Sonata) 10 01-28 Day At Mg Cap, 10 00:00 Bedtime as Mg Oral :00 needed for Sleep Cyanocobala 2018- No 2000 Once Per min 01-28 Day (Vitamin 00:00 B-12 Tab) :00 1,000 Mcg TABLET Fexofenadin 2018- No 180 Once Per e Hcl 01-28 Day (Carrie 24 00:00 Hr Tab*) :00 180 Mg TABLET Fluticasone 2018- No 2 Once Per Propionate 01-28 Day (Flonase 00:00 0.05% Nasal :00 Prentiss*) 120 Prentiss/16 Gm INHA Potassium 2018- No 595 Once Per Gluconate 01-28 Day 2.5 (Potassium 00:00 MEQ= 595MG Gluconate*) :00 2.5 Meq TABLET Zaleplon 2018- No 10 Once Per (Sonata) 10 01-28 Day At Mg CAP 00:00 Bedtime as :00 needed for Sleep Cyanocobala 2018- No 2000 Once Per min 01-28 Day 00:00 :00 Fexofenadin 2018- No 180 Once Per e Hcl 01-28 Day 00:00 :00 Fluticasone 2018- No 2 Once Per Propionate 01-28 Day 00:00 :00 Potassium 2018- No 595 Once Per Gluconate 01-28 Day 2.5 00:00 MEQ= 595MG :00 Zaleplon 2018- No 10 Once Per 01-28 Day At 00:00 Bedtime as :00 needed for Sleep Alfuzosin 2018- No 10 Once Per Hcl 05-15 Day (Uroxatral* 00:00 ) 10 Mg :00 Tab, 10 Mg Oral Aripiprazol 2018- No 10 At Bedtime e 05-15 (Abilify*) 00:00 5 Mg :00 Tablet, 10 Mg Oral Alfuzosin 2018- No 10 Once Per Hcl 05-15 Day (Uroxatral* 00:00 ) 10 Mg :00 Tab, 10 Mg Oral Alfuzosin 2018- No 10 Once Per Hcl 05-15 Day (Uroxatral* 00:00 ) 10 Mg TAB :00 Aripiprazol 2018- No 10 At Bedtime e 05-15 (Abilify*) 00:00 5 Mg TABLET :00 Alfuzosin 2018- No 10 Once Per Hcl 05-15 Day 00:00 :00 Aripiprazol 2018- No 10 At Bedtime e 05-15 00:00 :00 Alprazolam 2018- No 1 Three (Xanax*) 1 05-12 Times Per Mg Tablet, 00:00 Day 1 Mg Oral :00 Amlodipine 2018- No 2.5 Once Per Besylate 05-12 Day (Norvasc*) 00:00 2.5 Mg :00 Tablet, 2.5 Mg Oral Diclofenac 2018- No 1 Four Times Sodium 05-12 Daily (Voltaren 00:00 Gel*) 100 :00 Gm Tube, 1 Applic Topical Giner 2017- No 550 Once Per Extract , 12 Day 550 Mg Oral 00:00 :00 Lidocaine 2017- No 3 At Bedtime (Lidoderm 05-12 Patch) 5% 00:00 Patch, 3 :00 Patch Applied To The Skin Loperamide 2018- No 2 as needed Hcl 05-12 for (Imodium 00:00 Diarrhea A-D*) 2 Mg :00 Cap, 2 Mg Oral Magnesium 2018- No 250 Mg 05-12 Tablet, 00:00 :00 Naloxone 2018- No Hcl 0.4 05-12 Mg/1 Ml 00:00 Syringe, :00 Oxycodone 2018- No 10 Every 4 Hcl 05-12 Hours (Oxycodone 00:00 Hcl Er) 10 :00 Mg Tab.er.12h, 10 Mg Oral Alprazolam 2018- No 1 Three (Xanax*) 1 05-12 Times Per Mg TABLET 00:00 Day :00 Amlodipine 2018- No 2.5 Once Per Besylate 05-12 Day (Norvasc*) 00:00 2.5 Mg :00 TABLET Diclofenac 2018- No 1 Four Times Sodium 05-12 Daily (Voltaren 00:00 Gel*) 100 :00 Gm TUBE Lidocaine 2017- No 3 At Bedtime (Lidoderm 05-12 Patch) 5% 00:00 PATCH :00 Loperamide 2018- No 2 as needed Hcl 05-12 for (Imodium 00:00 Diarrhea A-D*) 2 Mg :00 CAP Oxycodone 2018- No 10 Every 4 Hcl 05-12 Hours (Oxycodone 00:00 Hcl Er) 10 :00 Mg TAB.ER.12H Alprazolam 2018- No 1 Three 05-12 Times Per 00:00 Day :00 Amlodipine 2018- No 2.5 Once Per Besylate 12 Day 00:00 :00 Diclofenac 2018- No 1 Four Times Sodium 05-12 Daily 00:00 :00 Giner 2018- No 550 Once Per Extract -12 Day 00:00 :00 Lidocaine 2017- No 3 At Bedtime 05-12 00:00 :00 Loperamide 2018- No 2 as needed Hcl 05-12 for 00:00 Diarrhea :00 Magnesium 2018- No 05-12 00:00 :00 Naloxone 2018- No Hcl 05-12 00:00 :00 Oxycodone 2018- No 10 Every 4 Hcl 05-12 Hours 00:00 :00 Benazepril 2015- No 10 Once Per Hcl -06 Day (Lotensin*) 00:00 10 Mg Tab, :00 10 Mg Oral Calcium 2015- No 2000 Once Per Carbonate/V 11-24 Day itamin D3 00:00 (Calcium :00 1,000 + D3 Caplet) 1 Each Tablet, 2000 Mcg Oral Clobetasol 2015- No 1 Once Per Propionate 11-24 Day (Temovate 00:00 0.05% :00 Cream*) 30 Gm Cream..g., 1 Applic Applied To The Skin Cyclobenzap 2015- No 10 At Bedtime rine Hcl 11-24 (Flexeril*) 00:00 10 Mg Tab, :00 10 Mg Oral Primidone 2015- No 50 Three (Mysoline) 10-06 Times Per 50 Mg 00:00 Day Tablet, 50 :00 Mg Oral Primidone 2016- No 50 Three (Mysoline) 10-06 Times Per 50 Mg 00:00 Day Tablet, 50 :00 Mg Oral Benazepril 2015- No 10 Once Per Hcl 11-24 Day (Lotensin*) 00:00 10 Mg TAB :00 Calcium 2015- No 2000 Once Per Carbonate/V 11-24 Day itamin D3 00:00 (Calcium :00 1,000 + D3 Caplet) 1 Each TABLET Clobetasol 2015- No 1 Once Per Propionate 11-24 Day (Temovate 00:00 0.05% :00 Cream*) 30 Gm CREAM..G. Cyclobenzap No 10 At Bedtime rine Hcl 11-24 (Flexeril*) 00:00 10 Mg TAB :00 Primidone 50 Three (Mysoline) 10- Times Per 50 Mg 00:00 Day TABLET :00 Benazepril No 10 Once Per Hcl 11-24 Day 00:00 :00 Calcium 2000 Once Per Carbonate/V 11-24 Day itamin D3 00:00 :00 Clobetasol No 1 Once Per Propionate 11-24 Day 00:00 :00 Cyclobenzap No 10 At Bedtime rine Hcl 11-24 00:00 :00 Primidone 50 Three 10-06 Times Per 00:00 Day :00 Escitalopra No 20 Once Per m Oxalate 09-02 Day (Lexapro*) 00:00 20 Mg :00 Tablet, 20 Mg Oral Oxycodone/A No 1 Every 4 cetaminophe 07-15 Hours as n (Percocet 00:00 needed for 7.5/325MG*) :00 Pain 7.5 Mg/325 Mg Tab, 1 Tab Oral Oxycodone/A No 1 Every 4 cetaminophe 07-15 Hours as n (Percocet 00:00 needed for 7.5/325MG*) :00 Pain 7.5 Mg/325 Mg Tab, 1 Tab Oral Escitalopra 2014- No 20 Once Per m Oxalate 09-02 Day (Lexapro*) 00:00 20 Mg :00 TABLET Oxycodone/A No 1 Every 4 cetaminophe 07-15 Hours as n (Percocet 00:00 needed for 7.5/325MG*) :00 Pain 7.5 Mg/325 Mg TAB Escitalopra No 20 Once Per m Oxalate 00:00 :00 Oxycodone/A No 1 Every 4 cetaminophe 07-15 Hours as n 00:00 needed for :00 Pain Problems Condition Condition Condition Status Onset Resolution Last Treatin g Comments Name Details Category Date Date Treatment Clinician Date Encounter Problem Inactiv for Garcia e 4-05 catheter 13:58: replacement 00 Fecal Problem Inactiv incontinenc e 3-31 e 09:17: 00 Urinary Problem Inactiv 2018-0 retention e 331 09:17: 00 Fecal Problem Inactiv 2019-0 incontinenc e 3 e 09:17: 00 Urinary Problem Inactiv 2019-0 retention e 05-19 09:17: 00 Sprain of Problem Inactiv 2019-0 hand, e 2-24 thumb, 11:33: right 00 Sprain of Problem Inactiv 2019-0 hand, e 2-24 thumb, 11:33: right 00 Sprain of Problem Inactiv 2019-0 hand, e 2-24 thumb, 11:33: right 00 Pain in Pain in Problem Active 2017-1 thoracic Thoracic 0-05 spine Spine 00:00: 00 Headache Headache Problem Active 2017-1 0-05 00:00: 00 Panic Panic Problem Active 2018-1 disorder Disorder 0-05 00:00: 00 Rash Problem Inactiv 2018-0 e 9-10 11:53: 00 Rash Problem Inactiv 2018-0 e 9-10 11:53: 00 Rash Problem Inactiv 2018-0 e 9-10 11:53: 00 Rash Problem Inactiv 2018-0 e 9-10 11:53: 00 Rash Problem Inactiv 2018-0 e 9-10 11:53: 00 Pulmonary Problem Inactiv 2018-0 fibrosis e 5-15 13:39: 00 SOB Problem Inactiv 2018-0 (shortness e 5-15 of breath) 13:39: 00 Pulmonary Problem Inactiv 2018-0 fibrosis e 5-15 13:39: 00 SOB Problem Inactiv 2018-0 (shortness e 5-15 of breath) 13:39: 00 Pulmonary Problem Inactiv 2018-0 fibrosis e 5-15 13:39: 00 SOB Problem Inactiv 2018-0 (shortness e 5-15 of breath) 13:39: 00 Pulmonary Problem Inactiv 2018-0 fibrosis e 5-15 13:39: 00 SOB Problem Inactiv 2018-0 (shortness e 5-15 of breath) 13:39: 00 Pulmonary Problem Inactiv 2018-0 fibrosis e 5-15 13:39: 00 SOB Problem Inactiv 2018-0 (shortness e 5-15 of breath) 13:39: 00 Pulmonary Problem Inactiv 2018-0 fibrosis e 5-15 13:39: 00 SOB Problem Inactiv 2018-0 (shortness e 5-15 of breath) 13:39: 00 Cough Problem Inactiv 2018-0 e 5-12 15:28: 00 Upper Problem Inactiv 2018-0 respiratory e 5-12 infection 15:28: 00 Cough Problem Inactiv 2018-0 e 5-12 15:28: 00 Upper Problem Inactiv 2018-0 respiratory e 5-12 infection 15:28: 00 Cough Problem Inactiv 2018-0 e 5-12 15:28: 00 Upper Problem Inactiv 2018-0 respiratory e 5-12 infection 15:28: 00 Cough Problem Inactiv 2018-0 e 5-12 15:28: 00 Upper Problem Inactiv 2018-0 respiratory e 5-12 infection 15:28: 00 Cough Problem Inactiv 2018-0 e 5-12 15:28: 00 Upper Problem Inactiv 2018-0 respiratory e 5-12 infection 15:28: 00 Cough Problem Inactiv 2018-0 e 5-12 15:28: 00 Upper Problem Inactiv 2018-0 respiratory e 5-12 infection 15:28: 00 Cough Problem Inactiv 2018-0 e 5-12 15:28: 00 Upper Problem Inactiv 2018-0 respiratory e 5-12 infection 15:28: 00 Cellulitis Cellulitis Problem Active 2015-02 15:41: 00 Cellulitis Problem Inactiv 2015-02 15:41: 00 Cellulitis Problem Inactiv 2015-02 15:41: 00 Cellulitis Problem Inactiv 2015-02 15:41: 00 Cellulitis Problem Inactiv 2015-02 15:41: 00 Cellulitis Problem Inactiv 2015-02 15:41: 00 Cellulitis Problem Inactiv 2015-02 15:41: 00 Cellulitis Problem Inactiv 2015-02 15:41: 00 Cellulitis Problem Inactiv 2015-02 15:41: 00 Diverticuli Problem Inactiv 2014-0 tis e 5-17 13:25: 00 Diverticuli Problem Inactiv 2014-0 tis e 5-17 13:25: 00 Diverticuli Problem Inactiv 2014-0 tis e 5-17 13:25: 00 Diverticuli Problem Inactiv 2014-0 tis e 5-17 13:25: 00 Diverticuli Problem Inactiv 2014-0 tis e 5-17 13:25: 00 Diverticuli Problem Inactiv 2014-0 tis e 5-17 13:25: 00 Diverticuli Problem Inactiv 2014-0 tis e 5-17 13:25: 00 Diverticuli Problem Inactiv 2014-0 tis e 5-17 13:25: 00 Sprain or Sprain or Problem Inactiv 2013-02 strain of strain of e 2-11 cervical cervical 13:55: spine spine 00 Sprain or Problem Inactiv 2013-02 strain of e 2-11 cervical 13:55: spine 00 Sprain or Problem Inactiv 2013-02 strain of e 2-11 cervical 13:55: spine 00 Sprain or Problem Inactiv 2013-02 strain of e 2-11 cervical 13:55: spine 00 Sprain or Problem Inactiv 2013-02 strain of e 2-11 cervical 13:55: spine 00 Sprain or Problem Inactiv 2013-02 strain of e 2-11 cervical 13:55: spine 00 Sprain or Problem Inactiv 2013-02 strain of e 2-11 cervical 13:55: spine 00 Sprain or Problem Inactiv 2013-02 strain of e 2-11 cervical 13:55: spine 00 Sprain or Problem Inactiv 2013-02 strain of e 2-11 cervical 13:55: spine 00 History of History of Problem Active bladder Bladder 02-19 neoplasm Neoplasm 00:00: 00 Inguinal Inguinal Problem Inactiv hernia hernia e Hematuria Hematuria Problem Active Acute on Acute on Problem Inactiv chronic chronic e respiratory respiratory failure failure Bipolar Bipolar Problem Active disorder disorder Posttraumat Posttraumat Problem Active ic stress ic stress disorder disorder Obstructive Obstructive Problem Active sleep apnea sleep apnea syndrome syndrome Essential Essential Problem Active and other and other specified specified forms of forms of tremor tremor Hypertensio Hypertensio Problem Active n n Hyperlipide Hyperlipide Problem Active john john Malignant Malignant Problem Active neoplasm of neoplasm of skin skin Gout Gout Problem Inactiv e Left foot Left foot Problem Inactiv pain pain e Sprain or Sprain or Problem Active strain of strain of cervical cervical spine spine Diverticuli Diverticuli Problem Active tis of tis of intestine intestine Upper Upper Problem Active respiratory respiratory tract tract infection infection Cough Cough Problem Active 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 Shortness Shortness Problem Active of breath of breath Rash Rash Problem Active Sprain of Sprain of Problem Active right thumb right thumb Retention Retention Problem Active of urine of urine Incontinenc Incontinenc Problem Active e of feces e of feces Urinary Urinary Problem Active catheter catheter change change required required Hypotension Hypotension Problem Active Acute Acute Problem Active kidney kidney injury injury Leukocytosi Leukocytosi Problem Active s s Chronic Chronic Problem Active respiratory respiratory failure failure with with hypoxia hypoxia Hyponatremi Hyponatremi Problem Active a a Chronic Chronic Problem Active pain pain Pneumonia Pneumonia Problem Active Bladder Bladder Problem Active outflow outflow obstruction obstruction Smoker Smoker Problem Active Deep venous Deep Venous Problem Active thrombosis Thrombosis of lower of Lower extremity Extremity Diverticuli Diverticuli Problem Active tis tis 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 carpometaca Carpometaca rpal joint rpal Joint of the of the thumb Thumb Shoulder Shoulder Problem Active pain Pain Hip pain Hip Pain Problem Active Degeneratio Degeneratio Problem Active n of n of interverteb Interverteb ral disc ral Disc Neck pain Neck Pain Problem Active Impingement Impingement Problem Active syndrome of Syndrome of shoulder Shoulder region Region Trochanteri Trochanteri Problem Active c bursitis c Bursitis Acquired Acquired Problem Active trigger Trigger finger Finger Hand pain Hand Pain Problem Active Pain in Pain in Problem Active finger Finger Full Full Problem Active thickness Thickness rotator Rotator cuff tear Cuff Tear Muscle Muscle Problem Active strain Strain Pulmonary Pulmonary Problem Active emphysema Emphysema Idiopathic Idiopathic Problem Active pulmonary Pulmonary fibrosis Fibrosis Peripheral Peripheral Problem Active edema Edema History of History of Problem Active malignant Malignant neoplasm of Neoplasm of bladder Bladder Male 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 Urinary Urinary Problem Active calculus calculus Enlarged Enlarged Problem Active prostate prostate without without lower lower urinary urinary tract tract symptoms symptoms (luts) (luts) Routine Routine Problem Active history and history and physical physical examination examination of adult of adult Lower back Lower back Problem Active pain pain Orchitis Orchitis Problem Active and and epididymiti epididymiti s s Atrophy, Atrophy, Problem Active testis testis Male Male Problem Inactiv erectile erectile e disorder of disorder of organic organic origin origin Testalgia Testalgia Problem Active Microscopic Microscopic Problem Active hematuria hematuria Runny nose Runny nose Problem Active Bilateral Bilateral Problem Active impacted impacted cerumen cerumen Nasal Nasal Problem Active obstruction obstruction Frequency Frequency Problem Active of of urination urination Dyspnea on Dyspnea on Problem Active exertion exertion CAD CAD Problem Active (coronary (coronary artery artery disease), disease), pamunkey pamunkey coronary coronary artery artery Cor Cor Problem Active pulmonale, pulmonale, chronic chronic Nasal Nasal Problem Active septal septal deviation deviation Nasal Nasal Problem Active vestibuliti vestibuliti s s Recurrent Recurrent Problem Active sinusitis sinusitis 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 Gross Gross Problem Active hematuria hematuria Malignant Malignant Problem Active 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 Nocturia Nocturia Problem Active Urge Urge Problem Active incontinenc incontinenc e of urine e of urine Self-cathet Self-cathet Problem Active erizes erizes urinary urinary bladder bladder Procedures Procedure Date / Time Performed Performing Clinician Mayelin haywood Portable x-ray of chest 2019-12-17 00:00:00 CT abdomen and pelvis without 2019-12-17 00:00:00 contrast Basic Metabolic Panel(BMP) 2019-11-24 00:00:00 L - proBNP 2019-11-24 00:00:00 Magnesium 2019-11-24 00:00:00 Basic Metabolic Panel(BMP) 2019-09-30 00:00:00 Magnesium 2019-09-30 00:00:00 CT - Maxillofacial (SINUSES) 2019-08-14 00:00:00 without IV Contrast ANESTH REPAIR OF HERNIA 2019-03-07 00:00:00 PRP I/LINDA INIT REDUC >5 YR 2019-03-07 00:00:00 ELECTROCARDIOGRAM TRACING 2019-03-07 00:00:00 AIRWAY INHALATION TREATMENT 2019-03-07 00:00:00 MESH (IMPLANTABLE) 2019-03-07 00:00:00 [id number] 2019-03-07 00:00:00 [id number] 2019-03-07 00:00:00 [id number] 2019-03-07 00:00:00 INJECTION ONDANSETRON HCI, PER 1 MG 2019-03-07 00:00:00 FENTANYL CITRATE INJ, 0.1 MG 2019-03-07 00:00:00 [id number] 2019-03-07 00:00:00 SUPPLEMENT L INGUINAL REGION WITH 2019-03-07 00:00:00 SYNTH SUB, OPEN APPROACH Open Inguinal Hernia Repair W/mesh 2019-03-07 00:00:00 (Surg) CT THORAX W/O DYE 2018-12-12 00:00:00 EXTREMITY STUDY 2018-12-12 00:00:00 Trigger Finger Release (Surg) 2018-11-12 00:00:00 Trigger Finger Release (Surg) 2018-07-23 00:00:00 Trigger Finger Release 2018-03-05 00:00:00 Trigger Finger Release (Surg) 2018-03-05 00:00:00 RADIOLOGIC EXAM HAND 3 VIEWS 2018-02-06 00:00:00 Trigger Finger Release 2015-07-20 00:00:00 Trigger Finger Release (Surg) 2015-07-20 00:00:00 Shoulder Surgery 2014-09-14 00:00:00 Rotator Cuff Repair 2014-09-14 00:00:00 Rotator Cuff Repair (Surg) 2014-09-14 00:00:00 Colonoscopy (Surg) 2014-08-28 00:00:00 Neck Surgery 2004-02-20 00:00:00 Neck Surgery 1997-02-19 00:00:00 Other 1997-02-19 00:00:00 Back Surgery 1996-02-20 00:00:00 Eye Surgery 1992-02-20 00:00:00 Hernia Repair 1992-02-20 00:00:00 Other 1990-02-19 00:00:00 Shoulder Surgery 1984-02-20 00:00:00 History of Hernia Repair History of Back Surgery History of Repair Of Retinal Detachment History of Neck Surgery History of Rotator Cuff Repair History of Toe amputation History of Rhinologic surgery Results Test Description Test Time Test Comments Text Results Atomic Results Result Comments Blood leukocytes automated count (number/volume) 2019-12-19 04:0 4:00 Test Item Value Reference Range Comments White Blood Count (test code = 6690-2) 14.4 3.6-11.1 Blood erythrocytes automated count (number/volume)2019-12-19 04:04:00 Test Item Value Reference Range Comments Red Blood Count (test code = 789-8) 3.04 4.27-5.49 Blood hemoglobin measurement (mass/volume)2019-12-19 04:04:00 Test Item Value Reference Range Comments Hemoglobin (test code = 718-7) 10.1 12.9-16.1 Automated blood hematocrit (volume fraction)2019-12-19 04:04:00 Test Item Value Reference Range Comments Hematocrit (test code = 4544-3) 31.3 37.7-46.5 Automated erythrocyte mean corpuscular wpuqou9256-90-02 04:04:00 Test Item Value Reference Range Comments Mean Corpuscular Volume (test code = 787-2) 102.9 79.3 -94.8 Automated erythrocyte mean corpuscular hemoglobin (mass per erythrocyte) 2019-12-19 04:04:00 Test Item Value Reference Range Comments Mean Corpuscular Hemoglobin (test code = 785-6) 33.1 26.8-33.2 Automated erythrocyte mean corpuscular hemoglobin concentration measurement (mass/volume)2019-12-19 04:04:00 Test Item Value Reference Range Comments Mean Corpuscular Hemoglobin Concent (test code = 32.2 33.5-35.5 786-4) Automated erythrocyte distribution width ndxdo3935-75-31 04:04:00 Test Item Value Reference Range Comments Red Cell Distribution Width (test code = 788-0) 16.2 12.0-15.1 Automated blood platelet count (count/volume)2019-12-19 04:04:00 Test Item Value Reference Range Comments Platelet Count (test code = 777-3) 200 165-353 Automated blood platelet mean volume kckbdfrugdh1592-97-77 04:04:00 Test Item Value Reference Range Comments Mean Platelet Volume (test code = 01518-2) 9.8 7.5-1 0.6 Automated blood neutrophil count as percentage of total avovvjlnfp9284-34-50 04:04:00 Test Item Value Reference Range Comments Neutrophils (%) (Auto) (test code = 770-8) 86.3 43.2- 71.5 Automated blood lymphocyte count as percentage of total idhnmbrfpi4803-29-93 04:04:00 Test Item Value Reference Range Comments Lymphocytes (%) (Auto) (test code = 736-9) 8.9 16.8- 43.4 Automated blood monocyte count as percentage of total tppaeztamp2089-04-96 04:04:00 Test Item Value Reference Range Comments Monocytes (%) (Auto) (test code = 5905-5) 2.5 4.6-12 .4 Automated blood eosinophil count as percentage of total rhuksdilsg9360-59-50 04:04:00 Test Item Value Reference Range Comments Eosinophils (%) (Auto) (test code = 713-8) 1.6 0.7-7 .8 Automated blood basophil count as percentage of total dlhzfvnqvy1152-68-58 04:04:00 Test Item Value Reference Range Comments Basophils (%) (Auto) (test code = 706-2) 0.7 0.2-1.2 Blood neutrophils automated count (number/volume)2019-12-19 04:04:00 Test Item Value Reference Range Comments Neutrophils # (Auto) (test code = 751-8) 12.4 1.9-7.2 Automated blood lymphocyte count (number/volume)2019-12-19 04:04:00 Test Item Value Reference Range Comments Lymphocytes # (Auto) (test code = 731-0) 1.3 1.1-2.7 Blood monocytes automated count (number/volume)2019-12-19 04:04:00 Test Item Value Reference Range Comments Monocytes # (Auto) (test code = 742-7) 0.4 0.3-0.8 Automated blood eosinophil kcmsk0057-78-24 04:04:00 Test Item Value Reference Range Comments Eosinophils # (Auto) (test code = 711-2) 0.2 0.0-0.5 Automated blood basophil count (count/volume)2019-12-19 04:04:00 Test Item Value Reference Range Comments Basophils # (Auto) (test code = 704-7) 0.1 0.0-0.1 Sodium [Moles/volume] in Fepqb8145-88-62 04:04:00 Test Item Value Reference Range Comments Sodium Level (test code = 2947-0) 133 137-144 Potassium [Moles/volume] in Serum or Bgofqu5995-10-66 04:04:00 Test Item Value Reference Range Comments Potassium Level (test code = 2823-3) 4.5 3.1-5.1 Chloride yzpij3917-44-95 04:04:00 Test Item Value Reference Range Comments Chloride Level (test code = 879157431) 101 101-110 Carbon dioxide tfidd2099-73-82 04:04:00 Test Item Value Reference Range Comments Carbon Dioxide Level (test code = 36818497) 25 23-3 1 Glucose [Moles/volume] in Serum or Beufjr4579-38-17 04:04:00 Test Item Value Reference Range Comments Glucose Level (test code = 23544-9) 95 70-105 UON4040-54-61 04:04:00 Test Item Value Reference Range Comments Blood Urea Nitrogen (test code = 044748216) 14.0 8.4- 25.7 Creatinine upmyn6683-16-84 04:04:00 Test Item Value Reference Range Comments Creatinine (test code = 343362081) 0.64 0.72-1.25 Estimation of creatinine anbbfhtoa8442-25-29 04:04:00 Test Item Value Reference Range Comments Estimated Creatinine Clearance 87.23 P T Ht: 167.64cm, PT Wt: 72.4KG Calc (test code = 280515635) Anion gap kvovzwqysmh0064-02-68 04:04:00 Test Item Value Reference Range Comments Anion Gap (test code = 00888210) 12 7-16 Meuyrru5220-36-88 04:04:00 Test Item Value Reference Range Comments Calcium Level (test code = 01941149) 7.6 8.4-10.2 C reactive protein sdgepqlhwnq6139-79-59 05:40:00 Test Item Value Reference Range Comments C-Reactive Protein (test code = 77780352) 87.8 0.0-5. 0 Color of Urine by Wvbz8228-65-37 16:40:00 Test Item Value Reference Range Comments Urine Color (test code = 18247-5) Yellow Urine clarity by refractometry iowoddvoo2359-44-64 16:40:00 Test Item Value Reference Range Comments Urine Appearance (test code = 35690-0) Clear Urine specific gravity measurement by automated test strip (relative density) 2019-12-17 16:40:00 Test Item Value Reference Range Comments Urine Specific Goodrich (test code = 99634-6) 1.009 1.0 05-1.030 Urine pH measurement by automated test vnlqg2894-60-11 16:40:00 Test Item Value Reference Range Comments Urine pH (test code = 79949-5) 5.0 5.0-8.0 Urine leukocyte esterase detection by automated test msljf3434-46-25 16:40:00 Test Item Value Reference Range Comments Urine Leukocyte Esterase (test code = 81501-9) NEGATIVE N EGATIVE Urine nitrite detection by automated test dfzpp1731-69-34 16:40:00 Test Item Value Reference Range Comments Urine Nitrite (test code = 08188-7) NEGATIVE NEGATIVE Urine protein detection by automated test hzkot0439-08-29 16:40:00 Test Item Value Reference Range Comments Urine Protein (test code = 77349-1) NEGATIVE NEGATIVE Urine glucose detection by automated test qbjjl4069-15-88 16:40:00 Test Item Value Reference Range Comments Urine Glucose (UA) (test code = 28343-5) NEGATIVE NEGATIV E Urine ketone detection by automated test rdykd4471-87-42 16:40:00 Test Item Value Reference Range Comments Urine Ketones (test code = 17374-4) NEGATIVE NEGATIVE Urine urobilinogen measurement by automated test strip (mass/volume)2019-12-17 16:40:00 Test Item Value Reference Range Comments Urine Urobilinogen (test code = 98192-6) NEGATIVE NEGATIV E Urine bilirubin detection by automated test hzqtv7236-10-63 16:40:00 Test Item Value Reference Range Comments Urine Bilirubin (test code = 39631-4) NEGATIVE NEGATIVE Urine erythrocytes detection by automated rjzjux6045-49-80 16:40:00 Test Item Value Reference Range Comments Urine Blood (test code = 79878-1) 1+ NEGATIVE Urine ascorbic acid veybzsgnh6046-05-57 16:40:00 Test Item Value Reference Range Comments Urine Ascorbic Acid Level (test code = 1904-2) NEGATIVE Urine squamous epithelial cells detection by automated pbpoen3735-59-35 16:40:00 Test Item Value Reference Range Comments Urine Squamous Epithelial Cells (test code = 68163-0) 1-5 0-5 RBC count ur ryge5047-51-18 16:40:00 Test Item Value Reference Range Comments Urine RBC (test code = 798-9) 3-5 0-2 Automated leukocytes count in urine sediment (number/area)2019-12-17 16:40:00 Test Item Value Reference Range Comments Urine WBC (test code = 08118-5) 0-5 0-5 Urine bacteria detection by automated qssavr0285-20-26 16:40:00 Test Item Value Reference Range Comments Urine Bacteria (test code = 70042-1) 1+ <1 Automated hyaline casts count in urine sediment by microscopy low power field (number/area)2019-12-17 16:40:00 Test Item Value Reference Range Comments Urine Hyaline Casts (test code = 5796-8) 0-2 0-2 Urine mucus detection by automated nilkjz1018-04-25 16:40:00 Test Item Value Reference Range Comments Urine Mucus (test code = 28237-5) SMALL Random urine sodium ziljtrwxnek1151-07-77 16:40:00 Test Item Value Reference Range Comments Urine Random Sodium (test code = XSV8134) 29 40-220 Random urine creatinine nmzugtwptpq5141-11-74 16:40:00 Test Item Value Reference Range Comments Urine Random Creatinine (test code = 208540289) 43.49 63.00-166.00 UOLUHDII59307-12-99 15:27:[address] [id number] Patient: KEO SESAY : 1940 Sex: M Address: [address] [place] [address] [place] [address] Unit #: [id number] [facility] SEQ #: [id number] Location: [facility] Room #: 3-5002-P Ordering: MEL VAUGHN DO Diagnosis: PNEUMONIA/SEPSIS EXAM: CT abdomen and pelvis without contrast TECHNIQUE: Contiguous axial images were obtained through the abdomen and pelvis without intravenouscontrast material. COMPARISON: 02/13/2019, 08/09/2019 INDICATION: Kidney stone, renal obstruction, perinephric abscess FINDINGS: Lung bases: Chronic pulmon salomon fibrotic changes and severe emphysematous changes are present and aresimilar to previous exams. Shift of the mediastinum to the right is also present and is chronic in nature. No definite pleuraleffusions or acute airspace disease is apparent. ABDOMEN: Nonobstructive 9 mm upper pole and 11 mm lower pole left renal stones are present. There is no evidence of hydronephrosis bilaterally.No right renal stones are apparent. No definite ureteric stones are apparent. Diverticulosis of the descending and sigmoid colon are present without evidence of acute diverticulitis. There is no evidence of free fluid or free air within the abdomen. No definite abdominal lymphadenopathy is apparent. Pelvis: The bladder is severely distended suggestive of bladder outlet obstruction. The prostate isnormal in size. Mild rectal wall thickening is present although this may also be secondary toadherent stool. No pelvic free fluid or lymphadenopathy are apparent. Bones: No osteolytic lesions or acute fractures are apparent. Degenerative changes of the thoracolumbar spine are present. IMPRESSION: 1. Severely distended bladder suggestive of bladder outlet obstruction. 2. Nonobstructive 9 mm upper pole and 11 mm lower pole left renal stones without evidence of hydronephrosis.No ureteric or bladder stones are apparent. 3. 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 Final report electronically signed by: Jefferson Horner MD Signed by: JEFFERSON HORNER MD 12/17/19 [id number] cc: JEFFERSON HORNER MD, ERIN K DOSerum or plasma creatinine measurement (mass/volume)2019-12-17 13:02:00 Test Item Value Reference Range Comments Bedside Creatinine (test code = 2160-0) 1.9 0.52-1.0 4 PZY91122-55-73 12:54:[address] [address] [id number] Patient: KEO SESAY : 1940 Sex: M Address: [address] [place] [address] [place] [address] [facility] #: [id number] Unit #: [id number] [facility] SEQ #: [id number] Location: ED Room #: Ordering: ZAID MAE MD Diagnosis: DIZZY/HYPOTENSION -------- Exam: Single view chest x-ray Technique: Frontal view of the chest Comparison: 08/09/2019, 03/27/2019 Indication: Weakness, dizziness, decreased blood pressure, chronic pain Findings: Severe emphysematous changes are present bilaterally. No definite superimposed infection is apparent. Shift of the mediastinum to the right is present secondary to loss of right lung volume. Chronic pulmonary fibrotic changes are noted.Heart size is within normal limits. No pleural effusions are apparent. Chronic elevation of the left hemidiaphragm is noted. IMPRESSION: 1. No radiographic evidence of acute cardiopulmonary disease. 2. Chronic changes of centrilobular emphysema and pulmonary fibrosis with mediastinal shift from left to right. Final report electronically signed by: Jefferson Horner MD Signed by: JEFFERSON HORNER MD 12/17/19 6836 cc: JEFFERSON HORNER MD, [facility] 2019-12-17 12:42:00 Test Item Value Reference Range Comments Bedside Troponin I (test code = Bedside Troponin I) 0.01 0.03-0.118 POC Crodybk1446-07-48 12:40:00 Test Item Value Reference Range Comments POC Glucose (test code = POC Glucose) 108 74-106 Blood band neutrophil count as percentage of total rtrjhlzcse6204-46-21 12:34:00 Test Item Value Reference Range Comments Band Neutrophils % (Manual) (test code = 65923-9) 6.0 0.0-9.0 Blood lymphocytes/100 hnqtlmnakv5651-52-33 12:34:00 Test Item Value Reference Range Comments Lymphocytes % (Manual) (test code = 85721-9) 4.0 16. 8-43.4 Monocyte %2019-12-17 12:34:00 Test Item Value Reference Range Comments Monocytes % (Manual) (test code = MIJ3166) 1.0 4.6-1 2.4 Eosinophil %2019-12-17 12:34:00 Test Item Value Reference Range Comments Eosinophils % (Manual) (test code = KGW2088) 1.0 0.7 -7.8 Neutrophil ziyvd3035-47-36 12:34:00 Test Item Value Reference Range Comments Neutrophils # (Manual) (test code = 751-8) 23.2 1.9-7 .2 Absolute lymphocyte ohula0401-24-04 12:34:00 Test Item Value Reference Range Comments Lymphocytes # (Manual) (test code = 85271-1) 1.0 1.1 -2.7 Absolute monocyte ihwqn6147-18-27 12:34:00 Test Item Value Reference Range Comments Monocytes # (Manual) (test code = JPE1158) 0.2 0.3-0 .8 Automated blood eosinophil elngm3280-70-03 12:34:00 Test Item Value Reference Range Comments Eosinophils # (Manual) (test code = 711-2) 0.2 0.0-0 .5 Automated basophil fgdgk1779-86-66 12:34:00 Test Item Value Reference Range Comments Basophils # (Manual) (test code = 704-7) 0.0 0.0-0.1 Blood platelets count by estimate (number/volume)2019-12-17 12:34:00 Test Item Value Reference Range Comments Platelet Estimate (test code = 95697-9) NORMAL NORMAL Blood anisocytosis xffrjzwdx3292-46-53 12:34:00 Test Item Value Reference Range Comments Anisocytosis (test code = 67837-4) 1+ Automated blood poikilocytosis rwaibfkjl5830-81-25 12:34:00 Test Item Value Reference Range Comments Poikilocytosis (test code = 37397-2) 1+ Macrocytes peahjhtmt0722-36-06 12:34:00 Test Item Value Reference Range Comments Macrocytosis (test code = 42558-9) 1+ Ovalocyte pwvnbhjba6170-38-00 12:34:00 Test Item Value Reference Range Comments Ovalocytes (test code = 774-0) 1+ Red blood cell stomatocyte rrqpwgjaa2681-62-59 12:34:00 Test Item Value Reference Range Comments Stomatocytes (test code = 42341-7) 2+ Prothrombin time (PT) in platelet poor plasma by coagulation gylia3346-85-02 12:34:00 Test Item Value Reference Range Comments Prothrombin Time (test code = 5902-2) 14.5 10.8-14.2 INR in Platelet poor plasma by Coagulation mrhla9857-43-53 12:34:00 Test Item Value Reference Range Comments Prothromb Time International 1.09 INR Therapeutic Range:2.0-3.0 Ratio (test code = 6301-6) Oral Anticoagulant Therapy2.5-3.5 P rosthetic Heart Valves, Recurren t Systemic Embolism Total kxqldbneo5489-85-09 12:34:00 Test Item Value Reference Range Comments Total Bilirubin (test code = XGG9274) 0.8 0.1-1.2 Direct bxcdmzoab9652-14-63 12:34:00 Test Item Value Reference Range Comments Direct Bilirubin (test code = 1967-7) 0.3 0.0-0.5 Serum or plasma indirect bilirubin measurement (mass/volume)2019-12-17 12:34:00 Test Item Value Reference Range Comments Indirect Bilirubin (test code = 1970-) 0.5 0.0-1.1 Total protein ptdbe3376-55-01 12:34:00 Test Item Value Reference Range Comments Total Protein (test code = 2885-2) 5.9 6.0-8.3 Cgbmkfq9328-59-63 12:34:00 Test Item Value Reference Range Comments Albumin (test code = UHI0913) 3.2 3.2-5.2 Plasma globulin measurement (mass/volume)2019-12-17 12:34:00 Test Item Value Reference Range Comments Globulin (test code = 27620-8) 2.7 2.6-4.6 Albumin to globulin ffhjs6051-27-10 12:34:00 Test Item Value Reference Range Comments Albumin/Globulin Ratio (test code = 403397) 0.5 1.1- 2.5 AST (SGOT) ser/hyor5082-93-69 12:34:00 Test Item Value Reference Range Comments Aspartate Amino Transf (AST/SGOT) (test code = 20 5 -34 94049783) Alkaline pocknxhqmvf3550-88-22 12:34:00 Test Item Value Reference Range Comments Alkaline Phosphatase (test code = 73701321) 59 40-1 50 ALT (SGPT) ser/wxft0799-71-36 12:34:00 Test Item Value Reference Range Comments Alanine Aminotransferase (ALT/SGPT) (test code = 16 0-55 1742-6) Lactic Acid (Sepsis)2019-12-17 12:34:00 Test Item Value Reference Range Comments Lactic Acid (Sepsis) (test code = Lactic Acid 1.60 0. 50-2.00 (Sepsis)) Procalcitonin (PCT) qpwvt0659-08-16 12:34:00 Test Item Value Reference Range Comments Procalcitonin (test code = 0.53 0-0.05 Suspe cted Lower Respiratory 551165255) Tract Infection:0.10-0 .25ng/mL- Low likelihood for b acterial infection; Antib iotics discouraged.>0.2 5ng/mL- Increased likeli booth for bacterial infect ion; Antibiotics encouraged.Suspe cted Sepsis: 0.10-0.50ng/mL- Low likelihood of sepsis; Antib iotics discouraged.>0.5 0ng/mL- Increased likeli booth of sepsis;Antibioti cs encouraged.>2.00 ng/mL- High risk of sepsis/s eptic shock;Antibiotic s strongly encouraged.Decis ions on antibiotic use s hould not be based solely on PCT concentrations. CAT YFEH7086-93-32 10:11:[address] [address] [id number] Patient: KEO SESAY : 1940 Sex: M Address: [address] [place] [address] [place] [address] Unit #: [id number] [facility] SEQ #: [id number] Location: IMAGE Room #: Ordering: MITRA NGUYEN MD Diagnosis: CHRONIS SINUTIS - CT SINUS, WITHOUT CONTRAST Indication: Chronic sinusitis Comparison: None. Technique: Helical CT imaging of the sinuses was performed without contrast. Coronal reconstructions were obtained. Findings: The paranasal sinuses are clear with the exception of mild ethmoid sinus mucosal thickening. There are no air/fluid level, sinus expansion, or bone erosion. The maxillary sinus OMU infundibula are patent bilaterally. There is mild mucosal thickening along the nasal passages. Impression: 1. Mild ethmoid sinus mucosal thickening. Otherwise, clear paranasal sinuses and patent drainage pathways. 2. Mild mucosal thickening along the nasal passages. Final report electronically signed by: aWlt Pereira MD Signed by: WALT PEREIRA MD 09/11/19 1007 cc: MITRA NGUYEN MD, MAUREEN T MDUrinalysis2020-07-08 08:36:00 Test Item Value Reference Range Comments Urine Color (test code = Urine Color) Yellow Yellow Urine Clarity (test code = Urine Clarity) Clear Clear Urine Glucose (test code = Urine Glucose) Negative Negati ve Urine Ketones (test code = Urine Ketones) Negative Negati ve Urine Bilirubin (test code = Urine Bilirubin) Negative Ne gative Urine Specific Goodrich (test code = Urine 1.010 1.010- 1.030 Specific Goodrich) Urine Blood (test code = Urine Blood) Small Negative Urine pH (test code = Urine pH) 6.0 5.0-8.0 Urine Protein (test code = Urine Protein) Negative Negati ve Urine Urobilinogen (test code = Urine 0.2 E.U./dL 0.2 Urobilinogen) Urine Nitrites (test code = Urine Nitrites) Negative Nega tive Urine Leukocytes (test code = Urine Leukocytes) Negative Negative CAT KUBZ0629-60-42 15:58:[address] [address] [id number] Patient: KEO SESAY : 1940 Sex: M Address: [address] [place] [address] [place] [address] [facility] #: [id number] Unit #: [id number] REQ SEQ #: [id number] Location: ED Room #: Ordering: PILAR SANFORD MD Diagnosis: SOB - CT chest (PE protocol) History: Hypoxia. Shortness of breath. Clinical concern for pulmonary embolism. Comparison: CT chest 06/24/2019 Procedure: Following the administration of nonionic intravenous contrast, 1.25 mm axial images wereobtained through the chest during the arterial phase. Sagittal and coronal reformats were obtained. Multiplanar maximum intensity projection and volume rendered images were created from the data set. 85 cc Optiray 320. Findings: There are no filling defects within the main through mid segment al pulmonary arteries to suggest a pulmonary embolism. Distal segmental pulmonary artery evaluation limited by respiratory motion artifact. There is no pleural or pericardial effusion. Heart size is normal. No thoracic aortic aneurysm. Prominent coronary artery calcifications. No pneumothoraxor endobronchial lesion. Advanced emphysema with increasing groundglass and dependent lower lobe opacities. No well-defined mass. No new suspicious bone lesion. No new lymphadenopathy. Anterior paratracheal lymph node again enlarged at 1.8 x 2.1 cm, similar to the prior exam. Subcarinal lymphnode also again slightly enlarged. No hilar or axillary lymphadenopathy. Limited imaging through the upper abdomen demonstrates normal adrenal glands. Elevated left hemidiaphragm nonobstructive leftrenal calculi measure up to 11 mm. Mild to moderate degenerative changes through the visualized spine. IMPRESSION: No definite CT evidence for pulmonary embolism within the main through mid segmental pulmonary arteries. Distal segmental pulmonary artery evaluation limited by respiratory motion artifact. Advanced emphysema with increasing groundglass and slightly patchy dependent opacities which can reflect a combination of edema and atelectasis. No focal infiltrate. Redemonstr ation stable mild spinal lymphadenopathy. Coronary artery atherosclerotic disease. Nonobstructive left renal calculi. Final report electronically signed by: Jefferson Cardenas MD Signed by: JEFFERSON CARDENAS MD 08/09/19 [id number] cc: JEFFERSON CARDENAS MD, DOUGLAS MDColor of Urine by Vksx2909-29-22 13:21:00 Test Item Value Reference Range Comments Urine Color (test code = 19798-7) Yellow Urine clarity by refractometry ilzzjhjjk2495-13-39 13:21:00 Test Item Value Reference Range Comments Urine Appearance (test code = 83793-3) Clear Urine specific gravity measurement by automated test strip (relative density) 2019-08-09 13:21:00 Test Item Value Reference Range Comments Urine Specific Goodrich (test code = 76458-4) 1.011 1.0 05-1.030 Urine pH measurement by automated test iwpzl9743-60-79 13:21:00 Test Item Value Reference Range Comments Urine pH (test code = 18922-2) 5.0 5.0-8.0 Urine leukocyte esterase detection by automated test zxjti1519-52-76 13:21:00 Test Item Value Reference Range Comments Urine Leukocyte Esterase (test code = 66854-4) NEGATIVE N EGATIVE Urine nitrite detection by automated test jsabs2352-78-90 13:21:00 Test Item Value Reference Range Comments Urine Nitrite (test code = 26636-3) NEGATIVE NEGATIVE Urine protein detection by automated test nijsx9543-30-62 13:21:00 Test Item Value Reference Range Comments Urine Protein (test code = 71558-6) NEGATIVE NEGATIVE Urine glucose detection by automated test mlryf0752-03-07 13:21:00 Test Item Value Reference Range Comments Urine Glucose (UA) (test code = 39049-2) NEGATIVE NEGATIV E Urine ketone detection by automated test hlxex8238-77-86 13:21:00 Test Item Value Reference Range Comments Urine Ketones (test code = 10347-8) NEGATIVE NEGATIVE Urine urobilinogen measurement by automated test strip (mass/volume)2019-08-09 13:21:00 Test Item Value Reference Range Comments Urine Urobilinogen (test code = 67663-5) NEGATIVE NEGATIV E Urine bilirubin detection by automated test ikzgf1557-32-20 13:21:00 Test Item Value Reference Range Comments Urine Bilirubin (test code = 70366-9) NEGATIVE NEGATIVE Urine erythrocytes detection by automated endxfi4228-54-02 13:21:00 Test Item Value Reference Range Comments Urine Blood (test code = 65909-8) 3+ NEGATIVE Urine ascorbic acid cnkwvssip7597-32-71 13:21:00 Test Item Value Reference Range Comments Urine Ascorbic Acid Level (test code = 1904-2) NEGATIVE RBC count ur magw3817-21-76 13:21:00 Test Item Value Reference Range Comments Urine RBC (test code = 798-9) >20 0-2 Automated leukocytes count in urine sediment (number/area)2019-08-09 13:21:00 Test Item Value Reference Range Comments Urine WBC (test code = 66744-7) 0-5 0-5 Bedside Troponin S7985-45-22 11:13:00 Test Item Value Reference Range Comments Bedside Troponin I (test code = Bedside Troponin I) 0.02 0.03-0.118 WJERMOWHJ2308-83-58 11:12:[address] [id number] Patient: KEO SESAY : 1940 Sex: M Address: [address] [place] [address] [place] [address] [facility] #: [id number] Unit #: [id number] REQ SEQ #: [id number] Location: ED Room #: Ordering: PILAR SANFORD MD Diagnosis: SOB - CHEST 2 VIEWS PA AND LATERAL History: SOB SOB SS CHEST PAIN 2 view chest. Prior studies 03/27/2019. Stable chest x-ray with chronic interstitial opacities elevation left hemidiaphragm and volume loss on the right. Heart is stable. There is no pneumothorax. Bony structures are stable. IMPRESSION: Stable chest x-ray.. Final report electronically signed by: Jimena Gutierrez MD Signed by: JIMENA GUTIERREZ II, MD 08/09/19 4375 cc: JIMENA GUTIERREZ II, MD, DOUGLAS MDBljosias leukocytes automated count (number/volume)2019-08-09 11:00:00 Test Item Value Reference Range Comments White Blood Count (test code = 6690-2) 4.5 3.6-11.1 Blood erythrocytes automated count (number/volume)2019-08-09 11:00:00 Test Item Value Reference Range Comments Red Blood Count (test code = 789-8) 3.35 4.27-5.49 Blood hemoglobin measurement (mass/volume)2019-08-09 11:00:00 Test Item Value Reference Range Comments Hemoglobin (test code = 718-7) 11.5 12.9-16.1 Automated blood hematocrit (volume fraction)2019-08-09 11:00:00 Test Item Value Reference Range Comments Hematocrit (test code = 4544-3) 34.7 37.7-46.5 Automated erythrocyte mean corpuscular vqfwjf1523-13-26 11:00:00 Test Item Value Reference Range Comments Mean Corpuscular Volume (test code = 787-2) 103.7 79.3 -94.8 Automated erythrocyte mean corpuscular hemoglobin (mass per erythrocyte) 2019-08-09 11:00:00 Test Item Value Reference Range Comments Mean Corpuscular Hemoglobin (test code = 785-6) 34.3 26.8-33.2 Automated erythrocyte mean corpuscular hemoglobin concentration measurement (mass/volume)2019-08-09 11:00:00 Test Item Value Reference Range Comments Mean Corpuscular Hemoglobin Concent (test code = 33.1 33.5-35.5 786-4) Automated erythrocyte distribution width gqsez5123-42-65 11:00:00 Test Item Value Reference Range Comments Red Cell Distribution Width (test code = 788-0) 15.5 12.0-15.1 Automated blood platelet count (count/volume)2019-08-09 11:00:00 Test Item Value Reference Range Comments Platelet Count (test code = 777-3) 192 165-353 Automated blood platelet mean volume vzhkkgmglfs7844-78-10 11:00:00 Test Item Value Reference Range Comments Mean Platelet Volume (test code = 49082-6) 9.6 7.5-1 0.6 Automated blood neutrophil count as percentage of total mpupxwayvo3313-90-04 11:00:00 Test Item Value Reference Range Comments Neutrophils (%) (Auto) (test code = 770-8) 62.7 43.2- 71.5 Automated blood lymphocyte count as percentage of total ysdfwwxowx9111-33-31 11:00:00 Test Item Value Reference Range Comments Lymphocytes (%) (Auto) (test code = 736-9) 20.2 16.8- 43.4 Automated blood monocyte count as percentage of total jttwtibxqu2302-18-08 11:00:00 Test Item Value Reference Range Comments Monocytes (%) (Auto) (test code = 5905-5) 13.2 4.6-12 .4 Automated blood eosinophil count as percentage of total yncpodmiew3833-04-56 11:00:00 Test Item Value Reference Range Comments Eosinophils (%) (Auto) (test code = 713-8) 1.9 0.7-7 .8 Automated blood basophil count as percentage of total rgogwluotu1329-31-66 11:00:00 Test Item Value Reference Range Comments Basophils (%) (Auto) (test code = 706-2) 2.0 0.2-1.2 Blood neutrophils automated count (number/volume)2019-08-09 11:00:00 Test Item Value Reference Range Comments Neutrophils # (Auto) (test code = 751-8) 2.8 1.9-7.2 Automated blood lymphocyte count (number/volume)2019-08-09 11:00:00 Test Item Value Reference Range Comments Lymphocytes # (Auto) (test code = 731-0) 0.9 1.1-2.7 Blood monocytes automated count (number/volume)2019-08-09 11:00:00 Test Item Value Reference Range Comments Monocytes # (Auto) (test code = 742-7) 0.6 0.3-0.8 Automated blood eosinophil rdimk1255-87-15 11:00:00 Test Item Value Reference Range Comments Eosinophils # (Auto) (test code = 711-2) 0.1 0.0-0.5 Automated blood basophil count (count/volume)2019-08-09 11:00:00 Test Item Value Reference Range Comments Basophils # (Auto) (test code = 704-7) 0.1 0.0-0.1 Prothrombin time (PT) in platelet poor plasma by coagulation zrcdd4824-23-54 11:00:00 Test Item Value Reference Range Comments Prothrombin Time (test code = 5902-2) 14.9 10.8-14.2 INR in Platelet poor plasma by Coagulation oxjtk8023-17-69 11:00:00 Test Item Value Reference Range Comments Prothromb Time International 1.12 INR Therapeutic Range:2.0-3.0 Ratio (test code = 6301-6) Oral Anticoagulant Therapy2.5-3.5 P rosthetic Heart Valves, Recurren t Systemic Embolism Sodium [Moles/volume] in Yelhj6177-48-97 11:00:00 Test Item Value Reference Range Comments Sodium Level (test code = 2947-0) 137 137-144 Potassium [Moles/volume] in Serum or Xljpba5866-47-73 11:00:00 Test Item Value Reference Range Comments Potassium Level (test code = 2823-3) 3.7 3.1-5.1 Chloride pbvzl5835-87-67 11:00:00 Test Item Value Reference Range Comments Chloride Level (test code = 895575728) 97 101-110 Carbon dioxide lxtqq4047-49-12 11:00:00 Test Item Value Reference Range Comments Carbon Dioxide Level (test code = 85962476) 29 23-3 1 Glucose [Moles/volume] in Serum or Jdknvh8023-55-74 11:00:00 Test Item Value Reference Range Comments Glucose Level (test code = 34351-6) 114 70-105 URD5558-43-17 11:00:00 Test Item Value Reference Range Comments Blood Urea Nitrogen (test code = 170509087) 15.0 8.4- 25.7 Creatinine kxzsk2028-30-19 11:00:00 Test Item Value Reference Range Comments Creatinine (test code = 430832564) 1.12 0.72-1.25 Estimation of creatinine genpsnuxq8002-03-40 11:00:00 Test Item Value Reference Range Comments Estimated Creatinine Clearance 49.84 P T Ht: 167.64cm, PT Wt: 73.5KG Calc (test code = 390734123) Anion gap owzobdezfcv2507-34-89 11:00:00 Test Item Value Reference Range Comments Anion Gap (test code = 48375650) 15 7-16 Zmblwpy2922-82-10 11:00:00 Test Item Value Reference Range Comments Calcium Level (test code = 17941371) 8.9 8.4-10.2 Total scwdwxxev4627-54-54 11:00:00 Test Item Value Reference Range Comments Total Bilirubin (test code = PPA5007) 0.5 0.1-1.2 Total protein ubzfa2519-95-27 11:00:00 Test Item Value Reference Range Comments Total Protein (test code = 2885-2) 7.3 6.0-8.3 Tnxnwpz4945-76-89 11:00:00 Test Item Value Reference Range Comments Albumin (test code = FAV0315) 3.7 3.2-5.2 Plasma globulin measurement (mass/volume)2019-08-09 11:00:00 Test Item Value Reference Range Comments Globulin (test code = 17877-8) 3.6 2.6-4.6 Albumin to globulin agqbc0048-42-32 11:00:00 Test Item Value Reference Range Comments Albumin/Globulin Ratio (test code = 600499) 1.0 1.1- 2.5 AST (SGOT) ser/zszi8972-54-03 11:00:00 Test Item Value Reference Range Comments Aspartate Amino Transf (AST/SGOT) (test code = 19 5 -34 32505893) Alkaline oshlopnfxfz6495-22-40 11:00:00 Test Item Value Reference Range Comments Alkaline Phosphatase (test code = 11352287) 81 40-1 50 ALT (SGPT) ser/fosz5928-22-42 11:00:00 Test Item Value Reference Range Comments Alanine Aminotransferase (ALT/SGPT) (test code = 10 0-55 1742-6) Lipase ser/tqgc8435-89-82 11:00:00 Test Item Value Reference Range Comments Lipase (test code = 3040-3) 18 7-78 Magnesium wgdri3151-87-73 11:00:00 Test Item Value Reference Range Comments Magnesium Level (test code = 390836385) 1.8 1.6-2.6 Brain natriuretic vnzgrqf4000-22-30 11:00:00 Test Item Value Reference Range Comments B-Type Natriuretic Peptide 334.1 0.0-100.0 Plasm a concentrations of (test code = 821423403) natriure tic peptides may be elevated in madeline ents with acute myocardial infar ction and renal insufficiency. CATH AOL5493-95-29 12:59:[address] [address] [id number] Patient: KEO SESAY : 1940 Sex: M Address: [address] [place] [address] [place] [address] [facility] #: [id number] Unit #: [id number] [facility] SEQ #: [id number] Location: [employer] Room #: Ordering: KWESI JAIME MD Diagnosis: I2510 -------- [id number] HEARTCATH_CARDIAC HEARTCATH DIAGNOSTIC:07/09/2019 10:46:00 AM PROCEDURE: Cardiac catheterization. INDICATION:Severe pulmonary hypertension, dyspnea with exertion, exertional chest pain,equivocalstress test. DESCRIPTION OF PROCEDURE: After informed consent was obtained, the patient was brought to the cardiac catheterization lab. The right wrist was prepared in the usual sterile and drape manner, anesthetized with 1% lidocaine solution. Hemodynamic access was gained without difficulty using micropuncture technique. The patient was anticoagulated andintra-arterial cocktail of verapamil and lidocaine was administered. Selective coronary angiography and left ventriculography was then performed. Conscious sedation was initiated, monitored and maintained during the procedure with the start timeof 11:48 and a completion time of 12:06 for conscious sedation time of 18 minutes. A total of 0.5 mg of Versed and 50 mcg of fentanyl were administered for conscious sedation. HEMODYNAMIC DATA:Aortic pressure is 91/45 at the beginning of the case. Post ventriculography, LV pressure is 101/19, aortic pressure on pullback is 108/45. There is no evidence of significant gradient across the aortic valve. CORONARY ANGIOGRAPHY:The LAD reaches the apex. The LAD and diagonal vessels have minor luminal irregularities. No critical or focal obstructive lesions are seen.There are minor calcific plaques present. Circumflex: The circumflex is relatively small caliber vessel which appears normal. The right coronary artery is a very large super-dominant vessel supplying the PDA and several posterolateral branches. The PDA and posterolaterals do reach the apex and the lateral wall of the left ventricle. Right coronary artery does not have significant obstructive disease. Left ventriculography is performed in the standard TRAN projection. This demonstrates normal left ventricular systolic function. There is no evidence of mitral regurgitation. The ascending aortic root appears relatively normal. The aorta itself is somewhat uncoiled. IMPRESSION: 1. Normal left ventricular systolic function. 2. Noncritical epicardial coronary disease. Signed by: MITRA JAIME MD 07/09/19 1303 cc: VINCE NGUYEN MD, JOHN A III [facility] ZGSI6237-73-30 19:03:[address] [id number] Patient: KEO SESAY : 1940 Sex: M Address: [address] [place] [address] [place] [address] [facility] #: [id number] Unit #: [id number] [facility] SEQ #: [id number] Location: IMAGE Room #: Ordering: ALESSANDRA JACKSON MD Diagnosis: J8410 PULMONARY FIBROSIS, UNSPECIFIED CT CHEST WO CONTRAST Clinical Information: J8410 PULMONARY FIBROSIS, UNSPECIFIED N Comparison: CT chest 12/12/[address] was obtained through the chest without contrast, HRCT protocol. Supine 1 mm thick images were made during inspiration and expiration. Lung parenchyma: Significant areas of air trapping with diffuse extensive emphysematous changes. Subpleural honeycombing in both lower lobes. Interlobular septal thickening and subpleural reticular opacities.No pleural effusions. No pneumothorax. No endobronchial lesions. Extrathoracic soft tissues. Thyroid is unremarkable. No axillary adenopathy. Mediastinum: Stable mediastinal lymph nodes, la rgest precarinal lymph node 18 x 20 mm and 7 x 14 mmAP window lymph node. No new or suspicious adenopathy in the chest. Moderate severity coronary artery calcifications.. No pericardial effusion. Atherosclerotic locations thoracic aorta without aneurysm. Unchanged elevation left hemidiaphragm. Stable mild bilateral gynecomastia. Stable appearance of the bones with osteopenia and moderate thoracic spondylosis. No suspicious bone lesions. Adrenal glands are unremarkable. Stable appearance of 2 nonobstructive calculi in the left kidney. No hydronephrosis. IMPRESSION: 1. Severe pulmonary emphysema. 2. Moderate pulmonary fibrosis with a stable appearance comparedto 12/12/2018. Typical UIP CT pattern. 3. Additional stable findings as above. Final report electronically signed by: Nella Moraes DO Signed by: AJIT MORAES DO 06/24/191858 cc: AJIT MORAES SAJEEV P MDNHERITAGE HOSPITALHCGAZDPU6770-81-55 12:11:[address] [id number] Patient: KEO SESAY : 1940 Sex: M Address: [address] [place] [address] [place] [address] Unit #: [id number] [facility] SEQ #: [id number] Location: [facility] Room #: Ordering: VINCE NGUYEN MD Diagnosis: R0609/I2510 [id number] CARDIO4_CARDIAC STRESS TEST LEXISCAN:06/04/2019 06:49:00 AM The clinical portion of this test is supervised and dictated under separate cover by Dr. Jefferson Dodge. INDICATION:Dyspnea on exertion. The patient underwent a 1-day single isotope radionuclide stress perfusion scan, 10.1 mCiof Cardiolite was injected for rest imaging, 31.4 mCi of Cardiolite was injected for stress imaging. A0.4 mg of Lexiscan was infused using a standard protocol. The images were motion correct ed. Ejection fraction is calculated at 49%. End-systolic and end- diastolic volumes are normal. Tomographic images demonstrate very poor cardiac uptake for the rest images. The stress images demonstrates some right ventricular uptake andmild lung uptake. TID is 1.3. Myocardial perfusion images are relatively poor quality. Regional wall motion appears abnormal in the septal and inferior posterior wall. Perfusion images demonstrate very small apicalseptal defect inferiorly seen in only the horizontal long axis views. Otherwise, perfusion appears normal. IMPRESSION: 1. Suboptimal study secondary to motion correction and poor myocardial uptake with rest images. 2. Lower limits of normal left ventricular function. 3. Abnormal wall motion in the inferior and inferoapical territories. CONCLUSION:This is an intermediate risk study. Signed by: MITRA JAIME MD 06/04/19 1212 cc: VINCE NGUYEN MD,MITRA HOLLIS MD, III leukocytes automated count (number/volume)2019-03-31 08:10:00 Test Item Value Reference Range Comments White Blood Count (test code = 6690-2) 7.8 3.6-11.1 Blood erythrocytes automated count (number/volume)2019-03-31 08:10:00 Test Item Value Reference Range Comments Red Blood Count (test code = 789-8) 3.45 4.27-5.49 Blood hemoglobin measurement (mass/volume)2019-03-31 08:10:00 Test Item Value Reference Range Comments Hemoglobin (test code = 718-7) 12.3 12.9-16.1 Automated blood hematocrit (volume fraction)2019-03-31 08:10:00 Test Item Value Reference Range Comments Hematocrit (test code = 4544-3) 36.5 37.7-46.5 Automated erythrocyte mean corpuscular fhcmfj0083-37-33 08:10:00 Test Item Value Reference Range Comments Mean Corpuscular Volume (test code = 787-2) 106.0 79.3 -94.8 Automated erythrocyte mean corpuscular hemoglobin (mass per erythrocyte) 2019-03-31 08:10:00 Test Item Value Reference Range Comments Mean Corpuscular Hemoglobin (test code = 785-6) 35.7 26.8-33.2 Automated erythrocyte mean corpuscular hemoglobin concentration measurement (mass/volume)2019-03-31 08:10:00 Test Item Value Reference Range Comments Mean Corpuscular Hemoglobin Concent (test code = 33.7 33.5-35.5 786-4) Automated erythrocyte distribution width tacfi5490-58-61 08:10:00 Test Item Value Reference Range Comments Red Cell Distribution Width (test code = 788-0) 15.7 12.0-15.1 Automated blood platelet count (count/volume)2019-03-31 08:10:00 Test Item Value Reference Range Comments Platelet Count (test code = 777-3) 163 165-353 Automated blood platelet mean volume haokzdvqhyg4744-84-86 08:10:00 Test Item Value Reference Range Comments Mean Platelet Volume (test code = 50337-9) 9.5 7.5-1 0.6 Automated blood neutrophil count as percentage of total hfanepaofe9034-36-82 08:10:00 Test Item Value Reference Range Comments Neutrophils (%) (Auto) (test code = 770-8) 86.3 43.2- 71.5 Automated blood lymphocyte count as percentage of total plbhvkumij3913-07-50 08:10:00 Test Item Value Reference Range Comments Lymphocytes (%) (Auto) (test code = 736-9) 6.5 16.8- 43.4 Automated blood monocyte count as percentage of total lgschxxpds3828-36-89 08:10:00 Test Item Value Reference Range Comments Monocytes (%) (Auto) (test code = 5905-5) 7.2 4.6-12 .4 Automated blood eosinophil count as percentage of total rerqbinopy9912-23-46 08:10:00 Test Item Value Reference Range Comments Eosinophils (%) (Auto) (test code = 713-8) 0.0 0.7-7 .8 Automated blood basophil count as percentage of total xsyptzgzdq3378-01-62 08:10:00 Test Item Value Reference Range Comments Basophils (%) (Auto) (test code = 706-2) 0.0 0.2-1.2 Blood neutrophils automated count (number/volume)2019-03-31 08:10:00 Test Item Value Reference Range Comments Neutrophils # (Auto) (test code = 751-8) 6.8 1.9-7.2 Automated blood lymphocyte count (number/volume)2019-03-31 08:10:00 Test Item Value Reference Range Comments Lymphocytes # (Auto) (test code = 731-0) 0.5 1.1-2.7 Blood monocytes automated count (number/volume)2019-03-31 08:10:00 Test Item Value Reference Range Comments Monocytes # (Auto) (test code = 742-7) 0.6 0.3-0.8 Automated blood eosinophil feqnq0759-92-90 08:10:00 Test Item Value Reference Range Comments Eosinophils # (Auto) (test code = 711-2) 0.0 0.0-0.5 Automated blood basophil count (count/volume)2019-03-31 08:10:00 Test Item Value Reference Range Comments Basophils # (Auto) (test code = 704-7) 0.0 0.0-0.1 Sodium tcfts2685-37-64 08:10:00 Test Item Value Reference Range Comments Sodium Level (test code = 316246849) 135 137-144 Potassium csmwo5679-96-15 08:10:00 Test Item Value Reference Range Comments Potassium Level (test code = 791279495) 3.9 3.1-5.1 Chloride bjxgi7440-87-43 08:10:00 Test Item Value Reference Range Comments Chloride Level (test code = 165348224) 92 101-110 Carbon dioxide xvjyu9377-21-06 08:10:00 Test Item Value Reference Range Comments Carbon Dioxide Level (test code = 17120046) 35 23-3 1 Glucose uqyvm3113-30-64 08:10:00 Test Item Value Reference Range Comments Glucose Level (test code = 13091704) 117 70-105 UFF6010-23-55 08:10:00 Test Item Value Reference Range Comments Blood Urea Nitrogen (test code = 642296547) 26.0 8.4- 25.7 Creatinine lklhx1897-58-75 08:10:00 Test Item Value Reference Range Comments Creatinine (test code = 311083610) 0.85 0.72-1.25 Estimation of creatinine yeokxkikg0990-43-44 08:10:00 Test Item Value Reference Range Comments Estimated Creatinine Clearance 65.68 P T Ht: 167.64cm, PT Wt: 78.1KG Calc (test code = 430135733) Anion gap qcdhnvebrsg8414-76-31 08:10:00 Test Item Value Reference Range Comments Anion Gap (test code = 67402688) 12 7-16 Qmuinbv6559-10-34 08:10:00 Test Item Value Reference Range Comments Calcium Level (test code = 32845258) 8.7 8.4-10.2 Magnesium xkeud4297-51-59 08:10:00 Test Item Value Reference Range Comments Magnesium Level (test code = 823433384) 1.9 1.6-2.6 BAKEGJXPDM0407-77-92 22:07:[address] [id number] Patient: KEO SESAY : 1940 Sex: M Address: [address] [place] [address] [place] [address] Unit #: [id number] REQ SEQ #: [id number] Location: ED Room #: Ordering: VIDYA HOLLOWAY MD Diagnosis: SOB/EDEMA LLE ------- History: Lower extremity edema . Findings: Utilizing real-time vera scale, color Doppler and pulsed Doppler ultrasound, the lower extremity was evaluated. The right and left common femoral veins, external iliac veins, superficial femoral veins, poplitealveins, and proximal greater saphenous veins all demonstrate normal spontaneous and phasic waveforms, and compressibility. No popliteal fossa cyst. No knee joint effusion identified. The visualized proximal calf veins havea normal color Doppler and grayscale appearance with normal compressibility. Impression: No evidence of deep venous thrombosis within either the right or left thigh. Final report electronically signed by: Pilar Castañeda MD Signed by: PILAR CASTAÑEDA MD 03/27/19 5796 cc: VIDYA HOLLOWAY MD, DOUGLAS J LOFOOYVWDHH4338-39-98 21:05:[address] [address] [id number] Patient: KEO SESAY : 1940 Sex: M Address: [address] [place] [address] [place] [address] [id number] Unit #: [id number] REQ SEQ #: [id number] Location: ED Room #: Ordering: VIDYA HOLLOWAY MD Diagnosis: SOB/EDEMA LLE ------- Indication: SOB/EDEMA LLE Portable chest. COMPARISON: 02/13/2019. IMPRESSION: 1. Bilateral interstitial opacities are similar to prior and are compatible with underlying chronicinterstitial lung disease. A component of mild edema is difficult to fully exclude. No focal consolidation or sizablepleural fluid collection. Stable cardiac and mediastinal contours. Final report electronically signed by: Vince Vanegas MD Signed by: VINCE VANEGAS MD 03/27/19 2213 cc: VIDYA HOLLOWAY MD, J OSEP J MDSerum or plasma creatinine measurement (mass/volume)2019-03-27 20:51:00 Test Item Value Reference Range Comments Bedside Creatinine (test code = 2160-0) 1.0 0.52-1.0 4 Bedside Troponin L5600-42-90 20:49:00 Test Item Value Reference Range Comments Bedside Troponin I (test code = Bedside Troponin I) 0.01 0.03-0.118 Total mmyclgtyp7461-66-46 20:40:00 Test Item Value Reference Range Comments Total Bilirubin (test code = KOI9057) 0.5 0.1-1.2 Total protein wlspx3902-91-58 20:40:00 Test Item Value Reference Range Comments Total Protein (test code = 2885-2) 7.3 6.0-8.3 Gpoydsw9940-63-91 20:40:00 Test Item Value Reference Range Comments Albumin (test code = KYO5687) 3.6 3.2-5.2 Plasma globulin measurement (mass/volume)2019-03-27 20:40:00 Test Item Value Reference Range Comments Globulin (test code = 83738-6) 3.7 2.6-4.6 Albumin to globulin gazpj6223-49-09 20:40:00 Test Item Value Reference Range Comments Albumin/Globulin Ratio (test code = 282321) 1.0 1.1- 2.5 AST (SGOT) ser/qkbo7866-68-70 20:40:00 Test Item Value Reference Range Comments Aspartate Amino Transf (AST/SGOT) (test code = 25 5 -34 09214947) Alkaline joierudevrh6055-23-09 20:40:00 Test Item Value Reference Range Comments Alkaline Phosphatase (test code = 22697432) 96 40-1 50 ALT (SGPT) ser/booz0734-97-37 20:40:00 Test Item Value Reference Range Comments Alanine Aminotransferase (ALT/SGPT) (test code = 14 0-55 1742-6) Color of Urine by Uigj0669-82-11 17:25:00 Test Item Value Reference Range Comments Urine Color (test code = 67756-5) Yellow Urine clarity by refractometry dkbtzjjrz8069-38-73 17:25:00 Test Item Value Reference Range Comments Urine Appearance (test code = 83899-1) Clear Urine specific gravity measurement by automated test strip (relative density) 2019-02-13 17:25:00 Test Item Value Reference Range Comments Urine Specific [place] (test code = 33541-3) 1.035 1.0 05-1.030 Urine pH measurement by automated test trtuk3266-53-21 17:25:00 Test Item Value Reference Range Comments Urine pH (test code = 48973-3) 8.0 5.0-8.0 Urine leukocyte esterase detection by automated test tzvni2242-72-08 17:25:00 Test Item Value Reference Range Comments Urine Leukocyte Esterase (test code = 57547-9) NEGATIVE N EGATIVE Urine nitrite detection by automated test lozhw7014-55-20 17:25:00 Test Item Value Reference Range Comments Urine Nitrite (test code = 84389-5) NEGATIVE NEGATIVE Urine protein detection by automated test upejs9234-58-22 17:25:00 Test Item Value Reference Range Comments Urine Protein (test code = 35227-2) NEGATIVE NEGATIVE Urine glucose detection by automated test kxlnr8397-94-03 17:25:00 Test Item Value Reference Range Comments Urine Glucose (UA) (test code = 64925-4) NEGATIVE NEGATIV E Urine ketone detection by automated test dnihb9696-00-35 17:25:00 Test Item Value Reference Range Comments Urine Ketones (test code = 56403-0) NEGATIVE NEGATIVE Urine urobilinogen measurement by automated test strip (mass/volume)2019-02-13 17:25:00 Test Item Value Reference Range Comments Urine Urobilinogen (test code = 55122-6) NEGATIVE NEGATIV E Urine bilirubin detection by automated test crbtn7763-22-27 17:25:00 Test Item Value Reference Range Comments Urine Bilirubin (test code = 95118-0) NEGATIVE NEGATIVE Urine erythrocytes detection by automated crufrl2288-08-87 17:25:00 Test Item Value Reference Range Comments Urine Blood (test code = 91733-8) 2+ NEGATIVE Urine ascorbic acid bpelfnepx6916-06-80 17:25:00 Test Item Value Reference Range Comments Urine Ascorbic Acid Level (test code = 1904-2) NEGATIVE Urine squamous epithelial cells detection by automated zsvtao8108-25-16 17:25:00 Test Item Value Reference Range Comments Urine Squamous Epithelial Cells (test code = 01504-2) 1-5 0-5 RBC count ur mwto9584-37-65 17:25:00 Test Item Value Reference Range Comments Urine RBC (test code = 798-9) >20 0-2 Automated leukocytes count in urine sediment (number/area)2019-02-13 17:25:00 Test Item Value Reference Range Comments Urine WBC (test code = 14311-1) 0-5 0-5 CAT JPFQ1693-64-61 16:55:[address] [id number] Patient: KEO SESAY : 1940 Sex: M Address: [address] [place] [address] [place] [address] Unit #: [id number] [facility] SEQ #: [id number] Location: [facility] Room #: Ordering: BHARAT JACKSON PA-C Diagnosis: R FOOT PAIN/BULGE IN ABDOMIN Clinical history: Bulge in abdomen TECHNIQUE: CT of the abdomen and pelvis following IV contrast with multiplanar reconstruction 118 cc Optiray 320 COMPARISON: 06/09/2015 FINDINGS: There are extensive chronicchanges in the chest bilaterally with interstitial opacities and mild pulmonary fibrosis. Stable mo derate shift of mediastinal to the right. Moderate elevation of of left diaphragm is stable. Liver and spleen are normal. Nondistended gallbladder. No bile duct dilatation. The pancreas is normal.No adrenal gland mass lesions. Kidneys are functioning bilaterally without hydronephrosis nonobstru cting left renal calculi measuring up to 1.1 cm. Atherosclerotic abdominal aorta which is normal in caliber. Moderately distended urinarybladder which extends towards the right inguinal canal yet no definite hernia defect or obstruction. Prostate gland is not enlarged. There are scattered colonic diverticula. No acute diverticulitis or acute inflammatory changes of the bowel. There is a smallleft inguinal hernia with segment of sigmoid colon tracking towards hernia defect. No mechanical obstruction or significant inflammatory changes. Small fat-containing alexandre umbilical hernia without inflammatory changes. Moderate degenerative changes in the visualized thoracic and lumbar spine.IMPRESSION: No acute inflammatory process in the abdomen or pelvis. Left inguinal hernia as described with bowel tracking into the hernia defect without obstruction or acute inflammatory changes. Final report electronically signed by: Jefferson Rodriguez MD Signed by: JEFFERSON RODRIGUEZ MD 02/13/19 2762 cc: HBARAT JACKSON PA-C, MICHAEL G MDRADIOLOGY 2019-02-13 15:28:[address] [id number] Patient: KEO SESAY : 1940 Sex: M Address: [address] [place] [address] [facility] [address] [id number] Unit #: [id number] [facility] SEQ #: [id number] Location: [facility] Room #: Ordering: BHARAT JACKSON PA-C Diagnosis: R FOOT PAIN/BULGE IN ABDOMIN Clinical history: Red and swollen foot x2 days TECHNIQUE: Portable upright chest at 1510 COMPARISON: 12/18/2017 FINDINGS: Diminished lung volumes. Moderate bilateral heterogeneous parenchymal opacities similar to prior imaging. Mild mediastinal shift to the right unchanged. Surgical clips project over apex right lung and over leftupper thorax. IMPRESSION: Stable chronic changes as described. No definite acute findings. Final report electronically signed by: Jefferson Rodriguez MD Signed by: JEFFERSON RODRIGUEZ MD 02/13/19 2159 cc: BHARAT JACKSON PA-C, [facility] leukocytes automated count (number/volume)2019-02-13 15:16:00 Test Item Value Reference Range Comments White Blood Count (test code = 6690-2) 5.3 3.6-11.1 Blood erythrocytes automated count (number/volume)2019-02-13 15:16:00 Test Item Value Reference Range Comments Red Blood Count (test code = 789-8) 3.28 4.27-5.49 Blood hemoglobin measurement (mass/volume)2019-02-13 15:16:00 Test Item Value Reference Range Comments Hemoglobin (test code = 718-7) 11.8 12.9-16.1 Automated blood hematocrit (volume fraction)2019-02-13 15:16:00 Test Item Value Reference Range Comments Hematocrit (test code = 4544-3) 35.0 37.7-46.5 Automated erythrocyte mean corpuscular zczhma4833-00-73 15:16:00 Test Item Value Reference Range Comments Mean Corpuscular Volume (test code = 787-2) 106.6 79.3 -94.8 Automated erythrocyte mean corpuscular hemoglobin (mass per erythrocyte) 2019-02-13 15:16:00 Test Item Value Reference Range Comments Mean Corpuscular Hemoglobin (test code = 785-6) 35.8 26.8-33.2 Automated erythrocyte mean corpuscular hemoglobin concentration measurement (mass/volume)2019-02-13 15:16:00 Test Item Value Reference Range Comments Mean Corpuscular Hemoglobin Concent (test code = 33.6 33.5-35.5 786-4) Automated erythrocyte distribution width apkrs1235-55-05 15:16:00 Test Item Value Reference Range Comments Red Cell Distribution Width (test code = 788-0) 14.9 12.0-15.1 Automated blood platelet count (count/volume)2019-02-13 15:16:00 Test Item Value Reference Range Comments Platelet Count (test code = 777-3) 162 165-353 Automated blood platelet mean volume ptlzmxhtyhn6767-11-20 15:16:00 Test Item Value Reference Range Comments Mean Platelet Volume (test code = 91221-6) 9.1 7.5-1 0.6 Automated blood neutrophil count as percentage of total hqkihadkev7466-21-27 15:16:00 Test Item Value Reference Range Comments Neutrophils (%) (Auto) (test code = 770-8) 66.7 43.2- 71.5 Automated blood lymphocyte count as percentage of total fyiipfhkna4885-38-98 15:16:00 Test Item Value Reference Range Comments Lymphocytes (%) (Auto) (test code = 736-9) 19.8 16.8- 43.4 Automated blood monocyte count as percentage of total vkikmdjklc4599-77-05 15:16:00 Test Item Value Reference Range Comments Monocytes (%) (Auto) (test code = 5905-5) 12.0 4.6-12 .4 Automated blood eosinophil count as percentage of total zrwmfuxfsq0417-81-36 15:16:00 Test Item Value Reference Range Comments Eosinophils (%) (Auto) (test code = 713-8) 0.5 0.7-7 .8 Automated blood basophil count as percentage of total gmouysrbgi2615-82-65 15:16:00 Test Item Value Reference Range Comments Basophils (%) (Auto) (test code = 706-2) 1.0 0.2-1.2 Blood neutrophils automated count (number/volume)2019-02-13 15:16:00 Test Item Value Reference Range Comments Neutrophils # (Auto) (test code = 751-8) 3.5 1.9-7.2 Automated blood lymphocyte count (number/volume)2019-02-13 15:16:00 Test Item Value Reference Range Comments Lymphocytes # (Auto) (test code = 731-0) 1.0 1.1-2.7 Blood monocytes automated count (number/volume)2019-02-13 15:16:00 Test Item Value Reference Range Comments Monocytes # (Auto) (test code = 742-7) 0.6 0.3-0.8 Automated blood eosinophil ggoqk7599-67-54 15:16:00 Test Item Value Reference Range Comments Eosinophils # (Auto) (test code = 711-2) 0.0 0.0-0.5 Automated blood basophil count (count/volume)2019-02-13 15:16:00 Test Item Value Reference Range Comments Basophils # (Auto) (test code = 704-7) 0.1 0.0-0.1 Sodium umdnp7209-60-03 15:16:00 Test Item Value Reference Range Comments Sodium Level (test code = 609718256) 135 137-144 Potassium uecjk4833-01-81 15:16:00 Test Item Value Reference Range Comments Potassium Level (test code = 010427624) 3.8 3.1-5.1 Chloride mccdf6119-79-23 15:16:00 Test Item Value Reference Range Comments Chloride Level (test code = 804853697) 94 101-110 Carbon dioxide iggad2536-21-77 15:16:00 Test Item Value Reference Range Comments Carbon Dioxide Level (test code = 56167130) 32 23-3 1 Glucose uhnss1563-51-31 15:16:00 Test Item Value Reference Range Comments Glucose Level (test code = 98606245) 102 70-105 NPR4082-81-68 15:16:00 Test Item Value Reference Range Comments Blood Urea Nitrogen (test code = 924113908) 15.0 8.4- 25.7 Creatinine rgtow9845-69-13 15:16:00 Test Item Value Reference Range Comments Creatinine (test code = 664781132) 0.78 0.72-1.25 Estimation of creatinine tdwjbvutq9305-21-11 15:16:00 Test Item Value Reference Range Comments Estimated Creatinine Clearance 74.15 P T Ht: 170.18cm, PT Wt: 75.5KG Calc (test code = 333023865) Anion gap fhbyvazsyta2896-97-66 15:16:00 Test Item Value Reference Range Comments Anion Gap (test code = 03518320) 13 7-16 Foxwbks3634-65-56 15:16:00 Test Item Value Reference Range Comments Calcium Level (test code = 04967112) 9.4 8.4-10.2 Total ibpzrgxjf0352-34-77 15:16:00 Test Item Value Reference Range Comments Total Bilirubin (test code = GWV9584) 0.8 0.1-1.2 Total protein hhhrh7089-14-83 15:16:00 Test Item Value Reference Range Comments Total Protein (test code = 2885-2) 8.1 6.0-8.3 Nzqqahn0027-49-06 15:16:00 Test Item Value Reference Range Comments Albumin (test code = HTL7811) 3.9 3.2-5.2 Plasma globulin measurement (mass/volume)2019-02-13 15:16:00 Test Item Value Reference Range Comments Globulin (test code = 27215-7) 4.2 2.6-4.6 Albumin to globulin inojj1718-51-86 15:16:00 Test Item Value Reference Range Comments Albumin/Globulin Ratio (test code = 497091) 0.9 1.1- 2.5 AST (SGOT) ser/evco9757-77-72 15:16:00 Test Item Value Reference Range Comments Aspartate Amino Transf (AST/SGOT) (test code = 17 5 -34 95505334) Alkaline iyuyglsmhwt4190-67-35 15:16:00 Test Item Value Reference Range Comments Alkaline Phosphatase (test code = 12595412) 94 40-1 50 ALT (SGPT) ser/upuz2660-75-17 15:16:00 Test Item Value Reference Range Comments Alanine Aminotransferase (ALT/SGPT) (test code = 12 0-55 1742-6) SZZKUJHER5119-67-61 08:52:[address] [address] [id number] Patient: KEO SESAY : 1940 Sex: M Address: [address] [place] [address] [place] [address] Unit #: [id number] REQ SEQ #: [id number] Location: ED Room #: Ordering: SHARI JACKSON DO Diagnosis: LEFT FOOT PAIN -------- FOOT LEFT 3 VIEWS History: LEFT FOOT PAIN LEFT FOOT PAIN Three views were obtained. The mineralization is normal. There is no fracture or malalignment. There is no dislocation. Soft tissues are unremarkable. Impression: No acute osseous abnormality. Final report electronically signed by: Jimena Gutierrez MD Signed by: JIMENA GUTIERREZ II, MD 12/30/18 0847 cc: SHARI JACKSON II,JIMENA Farrell MDCAT KIUJ3719-21-00 17:22:[address] [address] [id number] Patient: KEO SESAY : 1940 Sex: M Address: [address] [place] [address] [place] [address] [facility] #: [id number] Unit #: [id number] REQ SEQ #: [id number] Location: IMAGE Room #: Ordering: ALESSANDRA JACKSON MD Diagnosis: PEDAL EDEMA R/O DVT/J8410 CT CHEST WO CONTRAST History: PEDAL EDEMA R/O DVT/J8410 Multiple CT images are obtained through the chest utilizing high-resolution protocol. Prior study is 06/03/2018. Lung parenchyma: Significant areas of air trapping with diffuse extensive emphysematous changes. Subpleural honeycombing inboth lower lobes. Interlobular septal thickening in the subpleural regions. Mild groundglass opacities. No pleural effusions. No pneumothorax. Extrathoracic soft tissues. Thyroid is unremarkable. No axillary adenopathy. Mediastinum: Precarinal lymph node measuring 21 x 20 mm. Small AP window lymph node measuring 8 mm.There are coronary artery calcifications. Adrenal glands are unremarkable. Nonobstructive left renal calculus x2. No hydronephrosis. Right kidney is only partially imaged. Elevation left hemidiaphragm. Bony structures demonstrate thoracic spondylosis. IMPRESSION: 1. Emphysematous changes with elements of fibrosis and elevation of left hemidiaphragm. Findings appear to be relatively stable from the immediate prior study.. 2. Cardiomegaly and coronaryatherosclerosis. 3. Nonobstructive left renal calculi which are stable. Final report electr onically signed by: Jimena Gutierrez MD Signed by: JIMENA GUTIERREZ II, MD 12/12/18 8920 cc: JIMENA GUTIERREZ II, MD, [facility]JEEV P [facility] 2018-12-12 11:50:[address] [address] [id number] Patient: KEO SESAY : 1940 Sex: M Address: [address] [place] [address] [place] [address] [facility] #: [id number] Unit #: [id number] [facility] SEQ #: [id number] Location: IMAGE Room #: Ordering: ALESSANDRA JACKSON MD Diagnosis: PEDAL EDEMA R/O DVT/J8410 US VENOUS LEG DOPPLER BILAT Clinical Information: PEDAL EDEMA R/O DVT/J8410. Comparison: None. TECHNIQUE: Real time imaging, color flow Doppler with spectral analysis was performed. FINDINGS: Sonographyof the both femoral, popliteal, deep calf and greater saphenous veins show normal venous compressib ility and no evidence of venous thrombosis. There are normal color Doppler and spectral Doppler waveforms within these vessels, with respiratory variation and augmentation with calf compression.There is a Rodriguez's cyst in the right popliteal fossa measuring 4.4 x 2 x 1.4 cm. Impression: Noevidence of lower extremity deep venous thrombosis. Preliminary signature by: Jimena Gutierrez MD Final report electronically signed by: Jimena Gutierrez MD Signed by: JIMENA GUTIERREZ II, MD 12/12/18 1146 cc: KAJAL RAINES,ALESSANDRA WHITE MD ANDP6974-66-89 10:22:[address] [id number] Patient: KEO SESAY : 1940 Sex: M Address: [address] [place] [address] [place] [address] Unit #: [id number] [facility] SEQ #: [id number] Location: IMAGE Room #: Ordering: ALESSANDRA JACKSON MD Diagnosis: [id number] ------ CT CHEST WO CONTRAST Clinical Information: [id number] Comparison: CT 12/28/[address] was obtained through the chest without contrast. Supine 1 mm thick images were made during inspiration and expiration, HRCT chest protocol. Coronal and sagittal reformatted images were acquired. Prone imaging was not performed as patient unable to tolerate prone positioning. FINDINGS: Severe centrilobular emphysema with prominent bullous changes in the upper lobes especially on the left with stable appearance compared to 12/28/2017. There is no evidence for pneumothorax. There is unchanged elevation ofthe left hemidiaphragm. There is interlobular septal thickening with subpleural reticular opacities and mild honeycombing in the lung bases consistent with pulmonary fibrosis. No pulmonary masses or acute consolidation. There are no endobronchial lesions demonstrated. No pleural effusions. There is stable volume loss right hemithorax with mild unchanged rightward shift of the mediastinal structures. Heart size is normal. There are moderate coronary artery calcifications. No pericardial effusion. Allowing for limitations of noncontrast study, no pathologic adenopathy identified in the chest. Stable small mediastinal lymph nodes. There is no evidence for mediastinal masses. There are atherosclerotic calcifications thoracic aorta without aneurysm. Thyroid gland is unremarkable. There is no evidence for axillary adenopathy. Moderate thoracic spondylosis. No suspicious osteolytic or osteoblastic lesions. Limited images through the upper abdomen show no adrenal masses. Stable nonobstructive calcifications in the left kidney. IMPRESSION: 1. Severe pulmonary emphysema. 2. Moderate pulmonary fibrosis without significant progression compared to12/28/2017. Typical UIP CT pattern. 3. Nonobstructive left renal calcifications and additional chronic findings as above. Final report electronically signed by: Nella Moraes, DOSigned by: AJIT MORAES DO 06/04/18 1017 cc: AJIT MORAES SAJEEV P MDMAETIC [facility]ON[facility] TDSKSYF4904-10-19 08:12:[address] [address] [id number] Patient: KEO SESAY : 1940 Sex: M Address: [address] [place] [address] [place] [address] [facility] #: [id number] Unit #: [id number] [facility] SEQ #: [id number] Location: ED Room #: Ordering: AAYUSH RHODES DO Diagnosis: UNABLE TO URINATE LUMBAR SPINE MRI WITHOUT CONTRAST CLINICAL: 78-year-old with back pain and urinary retention. TECHNIQUE: Sagittal and axial MR images of the lumbar spine without contrast. COMPARISON: Thoracic spine MRI 09/12/2017, abdomen and pelvis CT dated 06/09/2015, and lumbar spine radiographs with flexion and /4/2013. FINDINGS: Moderate multilevel lumbar degenerative changes with central canal stenosis L5-S1 loss of disc signal and height with evidence of prior right hemilaminectomy and medial facetectomy. Decompression of the central canal. Minimal residual broad-based disc bulge or herniation without focal residual or recurrent protrusion. Scarring in the right lateral recess. Minimal foraminal collapse and stenosis. L4-L5 broad- based disc herniation and facet arthrosis causing moderate central canal and lateral recess stenosis. Mild bilateral foraminal encroachment, right greater than left. L3-L4 broad-based disc herniation eccentric to the right with facet arthrosis and ligamentum flavum hypertrophy causing moderate central canal and right greater than left lateral recess and foraminal stenosis. L2-L3 minimal retrolisthesis with broad-based disc bulge and facet arthrosis. Mild narrowing of the central canal without stenosis or nerve root compression. L1-L2 appears unremarkable. T12-L1 appears unremarkable. No marrow replacing lesions or edema. Distal cord and conus appear normal, with conus at L1. Nerve root distribution is physiologic. Subarachnoid and epidural spaces are otherwise unremarkable. Paraspinal soft tissues appear normal. IMPRESSION: 1. L5-S1 postoperative changes from right hemilaminectomy. Adequate decompression with mild residual scarring at the right lateral recess. Mild foraminal collapse and stenosis. 2. L4-L5 moderate central canal and lateral recess stenosis. 3. L3-L4 moderate central canal and right greater than left lateral recess and foraminal stenosis. Final report electronically signed by: Norbert Gonzales MD Signed by: NORBERT GONZALES MD 05/19/18 0808 cc: NORBERT GONZALES MD, STEPHANIE DORADIOLOGY 2018-05-19 04:10:[address] [id number] Patient: KEO SESAY : 1940 Sex: M Address: [address] [place] [address] [place] [address] [facility] #: [id number] Unit #: [id number] [facility] SEQ #: [id number] Location: ED Room #: Ordering: AAYUSH RHODES DO Diagnosis: UNABLE TO URINATE Single view abdomen INDICATION: Abdominal pain and urinary retention. TECHNIQUE: Single frontal supine portable view ofthe abdomen was obtained. COMPARISON: Abdominal CT dated 04/23/2015. FINDINGS: There are no dilated loops of bowel. Air and stool are seen throughout the nondilated colon and at the rectum.Mild soft tissue prominence of the pelvis may relate to bladder shadow and/or enlarged prostate, nonspecific. Degenerative changes of the visualized spine are noted. 1.0 cm calcific density projecting over the left nephric shadow correlate to known nephrolithiasis. IMPRESSION: 1. Nonspecific bowel gas pattern. 2. Prominent soft tissue at the pelvis may relate to bladder shadow and/or enlarged prostate. 3. Left renal calculus, 1 cm. Final report electronically signed by: Jeb Carter Signed by: JEB CARTER DO 05/19/18 0405 cc: JEB CARTERAAYUSHRUDDY Rose Blood Oxhfk4865-22-05 03:39:00 Test Item Value Reference Range Comments Blood leukocytes automated count (number/volume) (test 10.0 3.6-11.1 code = 6690-2) Red Blood Tgycj2575-09-82 03:39:00 Test Item Value Reference Range Comments Blood erythrocytes automated count (number/volume) 2.95 4.27-5.49 (test code = 789-8) Lcemmhkgep9352-47-33 03:39:00 Test Item Value Reference Range Comments Blood hemoglobin measurement (mass/volume) (test code 10.4 12.9-16.1 = 718-7) Tmyqgsmkyh6626-69-26 03:39:00 Test Item Value Reference Range Comments Automated blood hematocrit (volume fraction) (test 31.6 37.7-46.5 code = 4544-3) Mean Corpuscular Tzxoog1799-33-96 03:39:00 Test Item Value Reference Range Comments Automated erythrocyte mean corpuscular volume (test 107.0 79.3-94.8 code = 787-2) Mean Corpuscular Hwgltubkyo8878-58-66 03:39:00 Test Item Value Reference Range Comments Automated erythrocyte mean corpuscular hemoglobin 35.2 26.8-33.2 (mass per erythrocyte) (test code = 785-6) Mean Corpuscular Hemoglobin Urdyuhq7075-22-74 03:39:00 Test Item Value Reference Range Comments Automated erythrocyte mean corpuscular hemoglobin 32.9 33.5-35.5 concentration measurement (mass/volume) (test code = 786-4) Red Cell Distribution Obctl8265-26-11 03:39:00 Test Item Value Reference Range Comments Automated erythrocyte distribution width ratio (test 14.9 12.0-15.1 code = 788-0) Platelet Pscxq2698-74-66 03:39:00 Test Item Value Reference Range Comments Automated blood platelet count (count/volume) (test 155 165-353 code = 777-3) Mean Platelet Buvsqq4757-28-19 03:39:00 Test Item Value Reference Range Comments Automated blood platelet mean volume measurement (test 8.5 7.5-10.6 code = 45909-8) Neutrophils (%) (Auto)2018-05-19 03:39:00 Test Item Value Reference Range Comments Automated blood neutrophil count as percentage of 78.4 43.2-71.5 total leukocytes (test code = 770-8) Lymphocytes (%) (Auto)2018-05-19 03:39:00 Test Item Value Reference Range Comments Automated blood lymphocyte count as percentage of 9.8 16.8-43.4 total leukocytes (test code = 736-9) Monocytes (%) (Auto)2018-05-19 03:39:00 Test Item Value Reference Range Comments Automated blood monocyte count as percentage of total 9.3 4.6-12.4 leukocytes (test code = 5905-5) Eosinophils (%) (Auto)2018-05-19 03:39:00 Test Item Value Reference Range Comments Automated blood eosinophil count as percentage of 1.8 0.7-7.8 total leukocytes (test code = 713-8) Basophils (%) (Auto)2018-05-19 03:39:00 Test Item Value Reference Range Comments Automated blood basophil count as percentage of total 0.7 0.2-1.2 leukocytes (test code = 706-2) Neutrophils # (Auto)2018-05-19 03:39:00 Test Item Value Reference Range Comments Blood neutrophils automated count (number/volume) 7.8 1.9-7.2 (test code = 751-8) Lymphocytes # (Auto)2018-05-19 03:39:00 Test Item Value Reference Range Comments Automated blood lymphocyte count (number/volume) (test 1.0 1.1-2.7 code = 731-0) Monocytes # (Auto)2018-05-19 03:39:00 Test Item Value Reference Range Comments Blood monocytes automated count (number/volume) (test 0.9 0.3-0.8 code = 742-7) Eosinophils # (Auto)2018-05-19 03:39:00 Test Item Value Reference Range Comments Automated blood eosinophil count (test code = 711-2) 0.2 0.0-0.5 Basophils # (Auto)2018-05-19 03:39:00 Test Item Value Reference Range Comments Automated blood basophil count (count/volume) (test 0.1 0.0-0.1 code = 704-7) Sodium Lqomq1063-54-18 03:39:00 Test Item Value Reference Range Comments Sodium blood (test code = 562735437) 133 137-144 Potassium Hcsby6613-88-87 03:39:00 Test Item Value Reference Range Comments Potassium blood (test code = 970311469) 3.3 3.1-5.1 Chloride Svvsb5234-20-40 03:39:00 Test Item Value Reference Range Comments Chloride blood (test code = 217925015) 93 101-110 Carbon Dioxide Xmvgf9513-40-95 03:39:00 Test Item Value Reference Range Comments Carbon dioxide blood (test code = 79995485) 31 23-3 1 Glucose Jnxnn2780-01-17 03:39:00 Test Item Value Reference Range Comments Glucose blood (test code = 79088571) 107 70-105 Blood Urea Euwvpyhi1926-38-09 03:39:00 Test Item Value Reference Range Comments BUN (test code = 304066549) 16.0 8.4-25.7 Zdkietiuvt5620-11-37 03:39:00 Test Item Value Reference Range Comments Creatinine blood (test code = 332234220) 0.81 0.72-1. 25 Estimated Creatinine Clearance Ufbh1784-23-09 03:39:00 Test Item Value Reference Range Comments Estimation of creatinine 70.01 PT Ht: 167.64cm, PT Wt: 78KG clearance (test code = Results m onitored by Pharmacy. [id number]) Anion Cts5026-03-62 03:39:00 Test Item Value Reference Range Comments Anion gap measurement (test code = 03237714) 12 7-1 6 Calcium Mpyem0948-19-06 03:39:00 Test Item Value Reference Range Comments Calcium (test code = 42772069) 8.9 8.4-10.2 Urine Iglfy2454-05-57 03:33:00 Test Item Value Reference Range Comments Urine color determination (test code = 5778-6) YELLOW Urine Tzjnoikxfq8547-85-92 03:33:00 Test Item Value Reference Range Comments Urine clarity determination (test code = 18594-7) CLEAR Urine Specific Efbfsbr8303-93-84 03:33:00 Test Item Value Reference Range Comments Specific gravity of Urine by Refractometry automated 1.011 1.005-1.030 (test code = 89141-3) Urine iU7981-31-33 03:33:00 Test Item Value Reference Range Comments Urine pH measurement by automated test strip (test 6.5 5.0-8.0 code = 14113-1) Urine Leukocyte Insmirfa4505-95-13 03:33:00 Test Item Value Reference Range Comments Urine leukocyte esterase detection by automated NEGATIVE NEGATIVE test strip (test code = 77127-6) Urine Xkbygnu4025-68-49 03:33:00 Test Item Value Reference Range Comments Urine nitrite detection by automated test strip NEGATIVE NEGATIVE (test code = 44099-2) Urine Mckptbd7839-00-94 03:33:00 Test Item Value Reference Range Comments Urine protein detection by automated test strip (test TRACE NEG-TRACE code = 47035-2) Urine Glucose (UA)2018-05-19 03:33:00 Test Item Value Reference Range Comments Urine glucose detection by automated test strip NEGATIVE NEGATIVE (test code = 93860-0) Urine Wborore3905-08-62 03:33:00 Test Item Value Reference Range Comments Urine ketone detection by automated test strip NEGATIVE N EGATIVE (test code = 85686-2) Urine Egclbnzagcoj1333-97-36 03:33:00 Test Item Value Reference Range Comments Urine urobilinogen measurement by automated test strip >2.0 <2.0 (mass/volume) (test code = 27450-4) Urine Ttzllbtpe1175-36-75 03:33:00 Test Item Value Reference Range Comments Urine bilirubin detection by automated test strip NEGATIVE NEGATIVE (test code = 92962-5) Urine Pqyzv1521-64-85 03:33:00 Test Item Value Reference Range Comments Urine erythrocytes detection by automated method (test 2+ NEGATIVE code = 72517-3) Urine AIN6488-78-91 03:33:00 Test Item Value Reference Range Comments RBC count ur auto (test code = 798-9) <20 0-2 LKRSVUGQY1961-39-28 11:50:[address] [id number] Patient: KEO SESAY : 1940 Sex: M Address: [address] [place] [address] [place] [address] [facility] #: [id number] Unit #: [id number] REQ SEQ #: [id number] Location: [facility] Room #: Ordering: CHRIS SUAZO PA-C Diagnosis: RIGHT HAND PAIN --- -- FINGER, RIGHT THUMB DIGIT Clinical History: Right thumb pain x4 days. Thumb "cramped.: Technique: 4 view Findings: No osseous destructive lesion or dislocation. Mild sclerosis and spurring of the first metacarpal p halangeal joint. Small curvilinear calcifications lateral to the first metacarpal carpal joint. No donor site for acute avulsion fracture. Carpal alignment is satisfactory. No soft tissue gas .. Impression: 1. Small calcification lateral to the first metacarpocarpal joint. No donor site for acute avulsion fracture suggesting chondrocalcinosis or perhaps sequela of remote injury. No adjacent soft tissue swelling. 2. Degenerative change in the first metacarpal phalangealjoint.. Final report electronically signed by: Jeremiah Leahy DO Signed by: JEREMIAH LEAHY III, MD 04/14/18 0386 cc: JEREMIAH LEAHY III, MD, JUSTIN PA-CCAT OTQH4381-92-37 15:48:[address] [address] [id number] Patient: KEO SESAY : 1940 Sex: M Address: [address] [place] [address] [place] [address] Unit #: [id number] [facility] SEQ #: [id number] Location: IMAGE Room #: Ordering: ALESSANDRA JACKSON MD Diagnosis: [id number] ------ CT CHEST WO CONTRAST Clinical Information: [id number]. Pulmonary fibrosis. Comparison: CT chest 07/03/2017 TECHNIQUE: MDCT scanning was performed from the lung apices to the upper abdomen without contrast. Coronal and sagittal reformatted images were acquired. FINDINGS: Severe centrilobular emphysema with prominent bullous changes in the upper lobes especially on the left. There is no evidence for pneumothorax. There is unchanged elevation of the left hemidiaphragm. There is interlobular septalthickening with subpleural reticular opacities and mild honeycombing in the lung bases consistent with fibrosis. No pulmonary masses or focal consolidation. The previously seen mild atelectasis or consolidation that involved the right posterior lung base on the June 2017 study has resolved. No focal airspace disease to suggest pneumonia. There are no endobronchial lesions demonstrated. No pleural effusions. There is stable volume loss right hemithorax with mild unchanged rightward shift of the mediastinal structures. Heart size is normal. There are moderate coronary artery calcifications. No pericardial effusion. Allowing for limitations of noncontrast study, no pathologic adenopathy identified in the chest. Stable small mediastinal lymph nodes. There is no evidence for mediastinal masses. There are atherosclerotic calcifications thoracic aorta without aneurysm. Thyroid gland is unremarkable. There is no evidence for axillary adenopathy. Moderate thoracic spondylosis. No suspicious osteolytic or osteoblastic lesions. Limited images through the upper abdomen show no adrenal masses. There is a 10 mm nonobstructing calculus in the lower pole of the left kidney and 6 mm nonobstructing calcification in the upper pole of the left kidney. IMPRESSION: 1. Severe pulmonary emphysema. 2. Mild pulmonary fibrosis predominantly involving the lung baseswithout significant progression compared to 07/03/2017. 3. Previously seen atelectasis or consolidation that involve the right posterior lung base on the June 2017 study has cleared. 4. Nonobstructive left renal calcifications and additional chronic findings as above. Final report electronically signed by: Nella Moraes DO Signed by: AJIT MORAES DO 12/28/17 1543 cc: AJIT MORAES SAJEEV P GQLLOBPNGLG2897-25-74 14:20:[address] [id number] Patient: KEO SESAY : 1940 Sex: M Address: [address] [place] [address] [place] [address] [id number] Unit #: [id number] RE SEQ #: [id number] Location: LAB Room #: Ordering: ALESSANDRA JACKSON MD Diagnosis: R05 --------- CHEST 2 VIEWS PA AND LATERAL History: R05 R05 Findings: Two views of the chest are obtained and compared to the prior studydated 07/11/2017. . There is no change in the cardiomediastinal silhouette and pulmonary vascularity. There is no pneumothorax and no pneumoperitoneum. There are no new lung opacities appreciated. Impression: Stable chest x-ray. Final report electronically signed by: Jimena Gutierrez MD Signed by: JIMENA GUTIERREZ II, MD 12/18/17 3477 cc: JIMENA GUTIERREZ II, MD, S AJEEV P [facility] CHNJRPX8714-37-03 13:45:00 [place] [id number] ---- Patient: KEO SESAY : 1940 Sex: M Address: [address] [place] [address] [place] [address] [id number] Unit #: [id number] RE SEQ #: [id number] Location: [facility] Room #: Ordering: RUI MARROQUINMelonie Diagnosis: THORACIC PAIN MRI OF THE THORACIC SPINE, WITHOUT CONTRAST 09/12/2017 COMPARISON: 05/23/2017 INDICATION: Back pain. TECHNIQUE: Multiplanar, multisequence images of the thoracic spine obtained without the administration of IV contrast. FINDINGS: Mild scoliosis. Chronic mild anterior wedge compression fractures of T3-T4 and T5. Normalcord signal. T1-T2: Small left paracentral disc protrusion T2- T3: Small central disc protrusion T3-T4: Small right paracentral disc protrusion T4-T5: Small central disc protrusion. T11-12: Mild leftward asymmetric disc protrusion. The remaining thoracic levels demonstrates minimal spondylosis. IMPRESSION: 1. Scattered mild disc changes with mild upper thoracic chronic anterior wedge compression deformities. No definite acute fracture or clear neural impingement. Final report electronically signed by: Leon Hoskins MD Signed by: LEON HOSKINS MD 09/12/17 8869 cc: RUI SORIANO JEFFREY M UXYHUWRBDEX0697-34-44 11:47:[address] [id number] ------ Patient: KEO SESAY : 1940 Sex: M Address: [address] [place] [address] [place] [address] [id number] Unit #: [id number] REQ SEQ #: [id number] Location: IMAGE Room #: Ordering: ALESSANDRA JACKSON MD Diagnosis: J84.115 RESPIRATORY BRONCHIOLITIS INTERSTITIAL SANTANA CHEST 2 VIEWS PA AND LATERAL Clinical Information: J84.115 RESPIRATORY BRONCHIOLITIS INTERSTITIAL SANTANA. Cough for 3 weeks. Comparison 07/03/2017. There are degenerative changes in the thoracic spine with thoracolumbar scoliosis convex to the right. The heart is enlarged. There are atherosclerotic changes in the aorta. There is no evidence of overt pulmonary vascular congestion. There are probable bilateral emphysematous changes more prominent in the upper lobes. There is elevation of the left hemidiaphragm. There is no evidence of acute focal consolidation, pleural effusion or mass. IMPRESSION: 1. Cardiomegaly with atherosclerotic changes in the aorta. 2. Probable emphysematous changes more prominent in the upper lobes. 3. Elevated left hemidiaphragm. 4. No evidence of acute change. Final report electronically signed by: Rosetta Root MD Signed by:ROSETTA ROOT MD 07/11/17 5821 cc: ROSETTA ROOT MD, SAJEEV P [facility] AUDJ9057-82-29 12:55:[address] [address] [id number] ------ Patient: KEO SESAY : 1940 Sex: M Address: [facility] [place] [address] [facility] #: [id number] Unit #: [id number] REQ SEQ #: [id number] Location: ED Room #: Ordering: CHRIS SUAZO PA-C Diagnosis: COUGH GOTTEN WORSE - CTA PULMONARY EMBOLUS CHESTClinical Information: COUGH GOTTEN WORSE over 1-2 weeks. Shortness of breath. Helical multislice axial images of the chest were obtained following intravenous administration of 117 mL Optiray 320 contrast during the pulmonary arterial phase. Multiplanar maximum intensity projection images werereformatted from the data set. Comparison 05/23/2017. FINDINGS: There is normal opacification of the pulmonary arteries and their central branches. There are beam hardening and streak artifacts but no intraluminal defects to suggest clot or thrombus. There is no evidence of thoracic aortic dilatation or dissection. There is elevation of the left hemidiaphragm. There are diffuse bilateral emphysematous changes. There is interlobular septal thickening and mild honeycombing in the lung bases consistent with fibrosis. There is mild atelectasis and/or consolidation in the right posterior costophrenic angle. There is no evidence of pleural effusion or mass. The mediastinal and hilar structures are unremarkable without evidence of mass or adenopathy. The thyroid gland is unremarkable. There is no evidence of axillary adenopathy. Limited imaging of the upper abdomen is unremarkable. There are degenerative changes in the thoracic spine. IMPRESSION: 1. No CTA evidence of pulmonary embolus. 2. Diffuse bilateral emphysematous changes. 3. Bilateral pulmonary fibrosismore prominent in the lung bases. 4. Mild right posterior costophrenic angle atelectasis and/or con solidation. 5. Otherwise unremarkable. Final report electronically signed by: Rosetta Root MD Signed by: ROSETTA ROOT MD 07/03/17 2080 cc: ROSETTA ROOT MD, JUSTIN PA-CWhite Blood Rswnb7648-04-50 11:25:00 Test Item Value Reference Range Comments Blood leukocytes automated count (number/volume) (test 15.5 3.6-11.1 code = 6690-2) Red Blood Exzlp4058-89-32 11:25:00 Test Item Value Reference Range Comments Blood erythrocytes automated count (number/volume) 3.23 4.27-5.49 (test code = 789-8) Hczzvujnjt1390-67-62 11:25:00 Test Item Value Reference Range Comments Blood hemoglobin measurement (mass/volume) (test code 11.5 12.9-16.1 = 718-7) Opbvpmmfpp6738-35-76 11:25:00 Test Item Value Reference Range Comments Automated blood hematocrit (volume fraction) (test 33.8 37.7-46.5 code = 4544-3) Mean Corpuscular Jllqqb2572-75-39 11:25:00 Test Item Value Reference Range Comments Automated erythrocyte mean corpuscular volume (test 104.7 79.3-94.8 code = 787-2) Mean Corpuscular Fbtjkuqgdl4185-06-69 11:25:00 Test Item Value Reference Range Comments Automated erythrocyte mean corpuscular hemoglobin 35.7 26.8-33.2 (mass per erythrocyte) (test code = 785-6) Mean Corpuscular Hemoglobin Yeucuge5654-92-46 11:25:00 Test Item Value Reference Range Comments Automated erythrocyte mean corpuscular hemoglobin 34.1 33.5-35.5 concentration measurement (mass/volume) (test code = 786-4) Red Cell Distribution Cquzl5294-99-31 11:25:00 Test Item Value Reference Range Comments Automated erythrocyte distribution width ratio (test 14.5 12.0-15.1 code = 788-0) Platelet Bbvzz1858-60-77 11:25:00 Test Item Value Reference Range Comments Automated blood platelet count (count/volume) (test 202 165-353 code = 777-3) Mean Platelet Vjvqsi7899-94-47 11:25:00 Test Item Value Reference Range Comments Automated blood platelet mean volume measurement (test 8.5 7.5-10.6 code = 84298-1) Neutrophils (%) (Auto)2017-07-03 11:25:00 Test Item Value Reference Range Comments Automated blood neutrophil count as percentage of 83.0 43.2-71.5 total leukocytes (test code = 770-8) Lymphocytes (%) (Auto)2017-07-03 11:25:00 Test Item Value Reference Range Comments Automated blood lymphocyte count as percentage of 8.4 16.8-43.4 total leukocytes (test code = 736-9) Monocytes (%) (Auto)2017-07-03 11:25:00 Test Item Value Reference Range Comments Automated blood monocyte count as percentage of total 7.5 4.6-12.4 leukocytes (test code = 5905-5) Eosinophils (%) (Auto)2017-07-03 11:25:00 Test Item Value Reference Range Comments Automated blood eosinophil count as percentage of 0.5 0.7-7.8 total leukocytes (test code = 713-8) Basophils (%) (Auto)2017-07-03 11:25:00 Test Item Value Reference Range Comments Automated blood basophil count as percentage of total 0.6 0.2-1.2 leukocytes (test code = 706-2) Neutrophils # (Auto)2017-07-03 11:25:00 Test Item Value Reference Range Comments Blood neutrophils automated count (number/volume) 12.8 1.9-7.2 (test code = 751-8) Lymphocytes # (Auto)2017-07-03 11:25:00 Test Item Value Reference Range Comments Automated blood lymphocyte count (number/volume) (test 1.3 1.1-2.7 code = 731-0) Monocytes # (Auto)2017-07-03 11:25:00 Test Item Value Reference Range Comments Blood monocytes automated count (number/volume) (test 1.2 0.3-0.8 code = 742-7) Eosinophils # (Auto)2017-07-03 11:25:00 Test Item Value Reference Range Comments Automated blood eosinophil count (test code = 711-2) 0.1 0.0-0.5 Basophils # (Auto)2017-07-03 11:25:00 Test Item Value Reference Range Comments Automated blood basophil count (count/volume) (test 0.1 0.0-0.1 code = 704-7) Sodium Yitaa1550-05-52 11:25:00 Test Item Value Reference Range Comments Sodium blood (test code = 049678245) 139 137-144 Potassium Mudtt5610-29-06 11:25:00 Test Item Value Reference Range Comments Potassium blood (test code = 561688274) 4.0 3.1-5.1 Chloride Elmbf5612-41-84 11:25:00 Test Item Value Reference Range Comments Chloride blood (test code = 006030477) 97 101-110 Carbon Dioxide Qejix8057-15-65 11:25:00 Test Item Value Reference Range Comments Carbon dioxide (test code = 94561457) 36 23-31 Glucose Vkcvg4612-06-39 11:25:00 Test Item Value Reference Range Comments Glucose blood (test code = 05270216) 112 70-105 Blood Urea Eirhjxzh7128-38-80 11:25:00 Test Item Value Reference Range Comments BUN (test code = 605836797) 17.0 8.4-25.7 Tcjcfblvnj1876-74-07 11:25:00 Test Item Value Reference Range Comments Creatinine blood (test code = 448641092) 0.83 0.72-1. 25 Anion Pvp8994-15-19 11:25:00 Test Item Value Reference Range Comments Anion gap measurement (test code = 19044230) 10 7-1 6 Calcium Prenh0409-39-07 11:25:00 Test Item Value Reference Range Comments Calcium (test code = 27664206) 9.2 8.4-10.2 Lactic Acid (Sepsis)2017-07-03 11:25:00 Test Item Value Reference Range Comments Sepsis screening (test code = 222013729) 1.46 0.50-2. 00 OUDGHCCRG8243-89-07 10:55:[address] [address] [id number] ------ Patient: KEO SESAY : 1940 Sex: M Address: [address] [place] [address] [place] [address] [id number] Unit #: [id number] [facility] SEQ #: [id number] Location: ED Room #: Ordering: ALEXANDRA LANG DO Diagnosis: COUGH GOTTEN WORSE - CHEST PORTABLE - 1 VIEW Clinical Information: COUGH GOTTEN WORSE Comparison 06/30/2017. The heart appears enlarged. There are atherosclerotic changes in the aorta. There is no evidence of overt pulmonary vascular congestion. There is elevation of the left hemidiaphragm with mild atelectasis and/or scarring in the left lung base. There is no evidence of acute focal consolidation or pleural effusion. IMPRESSION: No evidence of acute change compared to 06/30/2017. Final report electronically signed by: Rosetta Root MD Signed by: ROSETTA ROOT MD 07/03/17 1051 cc: ROSETTA ROOT MD [facility] DOLactic Acid (Sepsis) Asvwft6528-80-68 14:30:00 Test Item Value Reference Range Comments Sepsis screening (test code = 830314864) 0.93 0.50-2. 00 White Blood Hyhtj9116-36-64 11:24:00 Test Item Value Reference Range Comments Blood leukocytes automated count (number/volume) (test 10.0 3.6-11.1 code = 6690-2) Red Blood Rhhnw9594-16-73 11:24:00 Test Item Value Reference Range Comments Blood erythrocytes automated count (number/volume) 3.50 4.27-5.49 (test code = 789-8) Elbvvszraa9606-64-06 11:24:00 Test Item Value Reference Range Comments Blood hemoglobin measurement (mass/volume) (test code 12.7 12.9-16.1 = 718-7) Trnsmuvkhr4476-31-54 11:24:00 Test Item Value Reference Range Comments Automated blood hematocrit (volume fraction) (test 36.7 37.7-46.5 code = 4544-3) Mean Corpuscular Vwktpd5659-10-61 11:24:00 Test Item Value Reference Range Comments Automated erythrocyte mean corpuscular volume (test 104.6 79.3-94.8 code = 787-2) Mean Corpuscular Dthqqgnmjb7049-45-59 11:24:00 Test Item Value Reference Range Comments Automated erythrocyte mean corpuscular hemoglobin 36.3 26.8-33.2 (mass per erythrocyte) (test code = 785-6) Mean Corpuscular Hemoglobin Stnhwkj7776-19-17 11:24:00 Test Item Value Reference Range Comments Automated erythrocyte mean corpuscular hemoglobin 34.7 33.5-35.5 concentration measurement (mass/volume) (test code = 786-4) Red Cell Distribution Exzvv9052-05-81 11:24:00 Test Item Value Reference Range Comments Automated erythrocyte distribution width ratio (test 14.3 12.0-15.1 code = 788-0) Platelet Pxsvd0934-77-70 11:24:00 Test Item Value Reference Range Comments Automated blood platelet count (count/volume) (test 189 165353 code = 777-3) Mean Platelet Sgdgms3531-70-53 11:24:00 Test Item Value Reference Range Comments Automated blood platelet mean volume measurement (test 9.0 7.5-10.6 code = 27096-1) Neutrophils (%) (Auto)2017-06-30 11:24:00 Test Item Value Reference Range Comments Automated blood neutrophil count as percentage of 78.7 43.2-71.5 total leukocytes (test code = 770-8) Lymphocytes (%) (Auto)2017-06-30 11:24:00 Test Item Value Reference Range Comments Automated blood lymphocyte count as percentage of 12.4 16.8-43.4 total leukocytes (test code = 736-9) Monocytes (%) (Auto)2017-06-30 11:24:00 Test Item Value Reference Range Comments Automated blood monocyte count as percentage of total 7.5 4.6-12.4 leukocytes (test code = 5905-5) Eosinophils (%) (Auto)2017-06-30 11:24:00 Test Item Value Reference Range Comments Automated blood eosinophil count as percentage of 0.8 0.7-7.8 total leukocytes (test code = 713-8) Basophils (%) (Auto)2017-06-30 11:24:00 Test Item Value Reference Range Comments Automated blood basophil count as percentage of total 0.6 0.2-1.2 leukocytes (test code = 706-2) Neutrophils # (Auto)2017-06-30 11:24:00 Test Item Value Reference Range Comments Blood neutrophils automated count (number/volume) 7.8 1.9-7.2 (test code = 751-8) Lymphocytes # (Auto)2017-06-30 11:24:00 Test Item Value Reference Range Comments Automated blood lymphocyte count (number/volume) (test 1.2 1.1-2.7 code = 731-0) Monocytes # (Auto)2017-06-30 11:24:00 Test Item Value Reference Range Comments Blood monocytes automated count (number/volume) (test 0.8 0.3-0.8 code = 742-7) Eosinophils # (Auto)2017-06-30 11:24:00 Test Item Value Reference Range Comments Automated blood eosinophil count (test code = 711-2) 0.1 0.0-0.5 Basophils # (Auto)2017-06-30 11:24:00 Test Item Value Reference Range Comments Automated blood basophil count (count/volume) (test 0.1 0.0-0.1 code = 704-7) Sodium Dcfht6070-45-20 11:24:00 Test Item Value Reference Range Comments Sodium blood (test code = 062892958) 138 137-144 Potassium Gxdlz3477-88-10 11:24:00 Test Item Value Reference Range Comments Potassium blood (test code = 852864353) 3.7 3.1-5.1 Chloride Mtzwh0247-48-11 11:24:00 Test Item Value Reference Range Comments Chloride blood (test code = 456738384) 96 101-110 Carbon Dioxide Fhjun6535-59-16 11:24:00 Test Item Value Reference Range Comments Carbon dioxide (test code = 96859560) 34 23-31 Glucose Adral9116-54-89 11:24:00 Test Item Value Reference Range Comments Glucose blood (test code = 94193776) 100 70-105 Blood Urea Obeoyicr2357-06-15 11:24:00 Test Item Value Reference Range Comments BUN (test code = 827776785) 14.0 8.4-25.7 Khrrqxtqxx3657-86-17 11:24:00 Test Item Value Reference Range Comments Creatinine blood (test code = 514016001) 0.87 0.72-1. 25 Anion Bpv1909-61-51 11:24:00 Test Item Value Reference Range Comments Anion gap measurement (test code = 72017093) 12 7-1 6 Calcium Vgkdt6871-75-84 11:24:00 Test Item Value Reference Range Comments Calcium (test code = 87381816) 9.5 8.4-10.2 Total Xjhztfthl6809-68-79 11:24:00 Test Item Value Reference Range Comments Total bilirubin (test code = BAO2612) 0.5 0.1-1.2 Total Ucqaywx7174-31-88 11:24:00 Test Item Value Reference Range Comments Total protein blood (test code = 2885-2) 7.2 6.0-8.3 Ldvfpcx9720-91-48 11:24:00 Test Item Value Reference Range Comments Albumin (test code = NQO4997) 4.1 3.2-5.2 Qvhfsrzy8897-97-78 11:24:00 Test Item Value Reference Range Comments Plasma globulin measurement (mass/volume) (test code = 3.1 2.6-4.6 31585-8) Albumin/Globulin Imjtc3786-08-28 11:24:00 Test Item Value Reference Range Comments Albumin to globulin ratio (test code = 301061) 1.3 1 .1-2.5 Aspartate Amino Transf (AST/SGOT)2017-06-30 11:24:00 Test Item Value Reference Range Comments AST (SGOT) ser/plas (test code = 85845624) 22 5-34 Alkaline Ykcivbdzrqy2387-76-76 11:24:00 Test Item Value Reference Range Comments Alkaline phosphatase (test code = 46380657) 66 40-1 50 Alanine Aminotransferase (ALT/SGPT)2017-06-30 11:24:00 Test Item Value Reference Range Comments ALT (SGPT) ser/plas (test code = 1742-6) 17 0-55 Lactic Acid (Sepsis)2017-06-30 11:24:00 Test Item Value Reference Range Comments Sepsis screening (test code = 2.22 0.50-2.00 CA LLED BY Millie Torres at [id number]) 2343 on 06/30/17 TO SERENA CHIANG RN AND R/V. JXTEGGTSE6419-00-50 11:20:[address] [id number] ------ Patient: KEO SESAY : 1940 Sex: M Address: [facility] [place] [place] [address] [facility] #: [id number] Unit #: [id number] REQ SEQ #: [id number] Location: ED Room #: Ordering: ALEXANDRA LANG DO Diagnosis: COUGH/DRY Frontal and lateral radiographs of the chest, 06/30/2017 Indication: Cough Comparison: CT scan of the chest performed on 05/23/2017 Impression: The cardiomediastinal silhouette is mildly enlarged. Elevation of the left hemidiaphragm. Chronic parenchymal disease. Emphysema. There is no pleural effusion or pneumothorax. Finalreport electronically signed by: Christopher Manzo MD Signed by: CHRISTOPHER MANZO JR, MD 06/30/17 2067 cc: ALEXANDRA LANG JR, BOBBY [facility] Troponin Q6711-56-24 10:59:00 Test Item Value Reference Range Comments Bedside Troponin I (test code = Bedside Troponin I) 0.01 0.03-0.118 CAT [id number] 13:46:[address] [address] [id number] ------ Patient: KEO SESAY : 1940 Sex: M Address: [address] [place] [address] [place] [address] Unit #: [id number] REQ SEQ #: [id number] Location: IMAGE Room #: Ordering: ALESSANDRA JACKSON MD Diagnosis: [id number] ------ CT CHEST WO CONTRAST History: [id number] Multislice CT images are obtained through the chest without IV contrast. High-resolution protocol was utilized. Prior study 10/27/2016. Lung parenchyma: Emphysematous changes with hyperlucency in the apices particularly on the left. Subpleural intralobular septal thickening inthe lower lobes bilaterally with basilar predominance and basilar honeycombing. No pleural effusions. No pneumothorax. No midline shift. No significant change when compared to the prior study. Expiration images further confirm air-trapping. Thyroid is unremarkable. No axillary adenopathy. Mediastinal lymph nodes are noted. There is an AP window with a calcification with short axis diameter of 6 mm. Precarinal node is stable measuring 11 mm. Subcarinal node is stable at 11 mm. There are coronary artery calcifications. No new mediastinal or hilar lymph nodes. Mediastinum rotated slightly to the right due to elevation of left hemidiaphragm which is stable. There are multiple left renal calculi and a solitary right renal calculus. These are stable as well. Adrenal glands are stable. Bony structures demonstrate osteopenia, thoracic spondylosis. No focal lytic or blastic lesions. IMPRESSION: 1. Stable fibrotic changes with basilar predominant subpleural honeycombing and reticular opacities. Significant air trapping predominantly in the left upper lobe which is stable. 2. Stable nonspecific mediastinal lymph nodes. 3. Stable bilateral renal calculi. Final report electronically signed by: Jimena Gutierrez MD Signed by: JIMENA GUTIERREZ II, MD 05/23/17 3142 cc: JIMENA GUTIERREZ II, MD, SAJEEV P [facility] [id number] 13:39:[address] [address] [id number] ------ Patient: KEO SESAY : 1940 Sex: M Address: [address] [place] [address] [place] [address] [id number] Unit #: [id number] [facility] SEQ #: [id number] Location: IMAGE Room #: Ordering: ALESSANDRA JACKSON MD Diagnosis: [id number] ------ CT CHEST WO CONTRAST Clinical Information: [id number] Comparison: 11/15/[address] was obtained through the chest without contrast. Supine 1 mm thick images were made during inspiration and expiration, and prone during inspiration. There is a normal cardiac size and mild to moderate vascular calcifications. Unchanged borderline mediastinal lymphadenopathy with 1 cm precarinal and 1.2 cm subcarinal node. Unchanged bilateral gynecomastia. No effusions. There is stable emphysema and interstitial fibrosis. Relative air-trapping in the left upper lobe is redemonstrated. The left hemidiaphragm remains elevated. No acute consolidation or suspicious nodules. Stable mild spondylosis and scoliosis. There is left nephrolithiasis without hydronephrosis. Impression: Stable chest CT compared with 2016. Final report electronically signed by: Mitra Park MD Signed by: MITRA PARK MD 10/27/16 5611 cc: MITRA PARK MD, SAJEEV P [id number] 14:27:[address] [id number] ------ Patient: KEO SESAY : 1940 Sex: M Address: [address] [place] [address] [place] [address] Unit #: [id number] [facility] SEQ #: [id number] Location: [facility] Room #: Ordering: ALLY DIAS MD Diagnosis: HIP PAIN Clinical history: Hip pain Technique:AP view of the pelvis and lateral view of the right and left hip Findings: No acute fracture. Mild arthropathy with mild subchondral sclerosis involving both right and left acetabulum. Mild osteopenia. Moderate degenerative changes in the visualized lower lumbar spine with prominent marginal osteophyte formation. Impression: Mild degenerative changes of the hips as described. Finalreport electronically signed by: Jefferson Rodriguez MD Signed by: JEFFERSON RODRIGUEZMD 03/03/16 [id number] 12:07:[address] [address] [id number] ------ Patient: KEO SESAY : 1940 Sex: M Address: [address] [place] [address] [place] [address] [id number] Unit #: [id number] SEQ #: [id number] Location: ED Room #: Ordering: MARIA D VENTURA MD Diagnosis: ALLERGIC REACTION TO IMMUNIZATION ------- Clinical history: 76-year-old male with right upper extremity swelling, possible allergic reaction after deltoid injection, redness medial aspect mid right humerus down to right wrist Right upper extremity venous Doppler exam 02/11/2016: Technique: Grayscale, color, and spectral venous Doppler examinationof the right upper extremity was obtained. Comparison: None Findings: In the right upper extremity, there is normal compressibility and phasic respiratory variation of flow present within the right radial, ulnar, and right basilic, right brachial, right cephalic, right axillary, right subcl yulisa, and right brachiocephalic veins. There is also normal phasic respiratory variation of flow and normal compressibility present within the internal jugular veins bilaterally. Impression: Normal right upper extremity venous Doppler exam Final report electronically signed by: Salas Sheets MD Signed by: SHABANA SHEETS MD 02/11/16 1202 Bacterial blood ndpxbsn3640-86-10 11:20:00 Test Item Value Reference Range Comments Bacterial blood culture (test code = 600-7) Pending Blood leukocytes automated count (number/volume)2016-02-11 11:00:00 Test Item Value Reference Range Comments Blood leukocytes automated count (number/volume) (test 14.8 3.6-11.1 code = 6690-2) Blood erythrocytes automated count (number/volume)2016-02-11 11:00:00 Test Item Value Reference Range Comments Blood erythrocytes automated count (number/volume) 3.09 4.27-5.49 (test code = 789-8) Blood hemoglobin measurement (mass/volume)2016-02-11 11:00:00 Test Item Value Reference Range Comments Blood hemoglobin measurement (mass/volume) (test code 10.4 12.9-16.1 = 718-7) Automated blood hematocrit (volume fraction)2016-02-11 11:00:00 Test Item Value Reference Range Comments Automated blood hematocrit (volume fraction) (test 31.4 37.7-46.5 code = 4544-3) Automated erythrocyte mean corpuscular dbfcey0549-90-28 11:00:00 Test Item Value Reference Range Comments Automated erythrocyte mean corpuscular volume (test 101.3 79.3-94.8 code = 787-2) Automated erythrocyte mean corpuscular hemoglobin (mass per erythrocyte) 2016-02-11 11:00:00 Test Item Value Reference Range Comments Automated erythrocyte mean corpuscular hemoglobin 33.6 26.8-33.2 (mass per erythrocyte) (test code = 785-6) Automated erythrocyte mean corpuscular hemoglobin concentration measurement (mass/volume)2016-02-11 11:00:00 Test Item Value Reference Range Comments Automated erythrocyte mean corpuscular hemoglobin 33.2 33.5-35.5 concentration measurement (mass/volume) (test code = 786-4) Automated erythrocyte distribution width shybh3922-23-75 11:00:00 Test Item Value Reference Range Comments Automated erythrocyte distribution width ratio (test 15.7 12.0-15.1 code = 788-0) Automated blood platelet count (count/volume)2016-02-11 11:00:00 Test Item Value Reference Range Comments Automated blood platelet count (count/volume) (test 162 165-353 code = 777-3) Automated blood platelet mean volume iwuolgcoxea1343-56-34 11:00:00 Test Item Value Reference Range Comments Automated blood platelet mean volume measurement (test 9.0 7.5-10.6 code = 37781-4) Automated blood neutrophil count as percentage of total gzabgwxium0471-73-79 11:00:00 Test Item Value Reference Range Comments Automated blood neutrophil count as percentage of 83.7 43.2-71.5 total leukocytes (test code = 770-8) Automated blood lymphocyte count as percentage of total igjjafuipn8826-30-65 11:00:00 Test Item Value Reference Range Comments Automated blood lymphocyte count as percentage of 8.3 16.8-43.4 total leukocytes (test code = 736-9) Automated blood monocyte count as percentage of total gdgigzmrdg6594-04-41 11:00:00 Test Item Value Reference Range Comments Automated blood monocyte count as percentage of total 7.1 4.6-12.4 leukocytes (test code = 5905-5) Automated blood eosinophil count as percentage of total btgysxngcg2865-54-68 11:00:00 Test Item Value Reference Range Comments Automated blood eosinophil count as percentage of 0.5 0.7-7.8 total leukocytes (test code = 713-8) Automated blood basophil count as percentage of total wzdwpehlvh0735-37-76 11:00:00 Test Item Value Reference Range Comments Automated blood basophil count as percentage of total 0.4 0.2-1.2 leukocytes (test code = 706-2) Blood neutrophils automated count (number/volume)2016-02-11 11:00:00 Test Item Value Reference Range Comments Blood neutrophils automated count (number/volume) 12.4 1.9-7.2 (test code = 751-8) Automated blood lymphocyte count (number/volume)2016-02-11 11:00:00 Test Item Value Reference Range Comments Automated blood lymphocyte count (number/volume) (test 1.2 1.1-2.7 code = 731-0) Blood monocytes automated count (number/volume)2016-02-11 11:00:00 Test Item Value Reference Range Comments Blood monocytes automated count (number/volume) (test 1.1 0.3-0.8 code = 742-7) Automated blood eosinophil itefs2984-66-09 11:00:00 Test Item Value Reference Range Comments Automated blood eosinophil count (test code = 711-2) 0.1 0.0-0.5 Automated blood basophil count (count/volume)2016-02-11 11:00:00 Test Item Value Reference Range Comments Automated blood basophil count (count/volume) (test 0.1 0.0-0.1 code = 704-7) Prothrombin time (PT) in platelet poor plasma by coagulation qsrsr3796-91-83 11:00:00 Test Item Value Reference Range Comments Prothrombin time (PT) in platelet poor plasma by 14.2 10.8-14.2 coagulation assay (test code = 5902-2) INR in platelet poor plasma by coagulation utpug2749-05-23 11:00:00 Test Item Value Reference Range Comments INR in platelet poor plasma by 1.07 I NR Therapeutic Range: 2.0-3.0 coagulation assay (test code = O ral Anticoagulant Therapy 6301-6) 2.5-3.5 Prosthet ic Heart Valves, Recurrent System ic Embolism Serum sodium vjebukplxao6890-69-19 11:00:00 Test Item Value Reference Range Comments Serum sodium measurement (test code = 2951-2) 136 13 7-145 Serum potassium eywxiwsvaie6662-38-31 11:00:00 Test Item Value Reference Range Comments Serum potassium measurement (test code = 2823-3) 3.6 3.5-5.1 Chloride ser/bayc3722-07-40 11:00:00 Test Item Value Reference Range Comments Chloride ser/plas (test code = 2075-0) 102 98-107 Carbon dioxide bezjbajgwsg2329-39-90 11:00:00 Test Item Value Reference Range Comments Carbon dioxide measurement (test code = 94773130) 27 22-30 Serum or plasma glucose measurement (mass/volume)2016-02-11 11:00:00 Test Item Value Reference Range Comments Serum or plasma glucose measurement (mass/volume) 82 74-106 (test code = 2345-7) Serum or plasma urea nitrogen measurement (mass/volume)2016-02-11 11:00:00 Test Item Value Reference Range Comments Serum or plasma urea nitrogen measurement 14 9-20 (mass/volume) (test code = 3094-0) Serum or plasma creatinine measurement (moles/volume)2016-02-11 11:00:00 Test Item Value Reference Range Comments Serum or plasma creatinine measurement (moles/volume) 0.69 0.66-1.25 (test code = 87471-4) Blood anion txc4337-21-70 11:00:00 Test Item Value Reference Range Comments Blood anion gap (test code = 00367-1) 11 7-16 Serum or plasma calcium measurement (mass/volume)2016-02-11 11:00:00 Test Item Value Reference Range Comments Serum or plasma calcium measurement (mass/volume) 8.0 8.4-10.2 (test code = 16668-1) Serum or plasma lactate measurement (mass/volume)2016-02-11 11:00:00 Test Item Value Reference Range Comments Serum or plasma lactate measurement (mass/volume) 0.87 0.7-2.0 (test code = 71596-0) CAT QPWB3397-82-80 11:24:[address] [address] [id number] ------ Patient: KEO SESAY : 1940 Sex: M Address: [address] [place] [address] [place] [address] [facility] #: [id number] Unit #: [id number] REQ SEQ #: [id number] Location: IMAGE Room #: Ordering: ALESSANDRA JACKSON MD Diagnosis: [id number] ------ CT CHEST WO CONTRAST Clinical Information: N01956 Serial transaxial sections of the chest were obtained following intravenous administration. 1 mm sections at 10 mm intervals were also obtained using a high spatial resolution reconstruction algorithm during inspiration and expiration. The patient was unable to lay prone for prone imaging. Reformatted images were obtained in the coronal and sagittal planes. Comparison 11/20/2014. Findings: There are diffuse bilateral emphysematous changes more prominent in theleft upper lobe not significantly changed. There is diffuse bilateral septal thickening and scattered bandlike opacities consistent with scarring and fibrosis. There is subpleural honeycombing moreprominent in the lung bases. There is mild traction bronchiectasis more prominent in the medial aspect of the left lung base. There are no infiltrates, groundglass opacification, consolidation, pleural effusion or mass. The mediastinal and hilar structures are unremarkable without evidence ofmass or adenopathy. The thyroid gland is unremarkable. There is no evidence of axillary adenopathy. Limited imaging of the upper abdomen demonstrates calcifications in the left kidney consistent with renal stones. There are degenerative changes in the thoracic spine. Impression: 1. Bilateral emphysematous changes with scarring and fibrosis as described above not significantly changed. 2. Nonobstructing left renal stones. 3. Otherwise no evidence of acute change. Final report electronically signed by: Rosetta Root MD Signed by: ROSETTA ROOT MD 11/15/15 [address] CHEST WO CONTRAST Clinical Information: L05125 Serial transaxial sections of the chest were obtained following intravenous administration. 1 mmsections at 10 mm intervals were also obtained using a high spatial resolution reconstruction algorithm during inspiration and expiration. The patient was unable to lay prone for prone imaging. Reformatted images were obtained in the coronal and sagittal planes. Comparison 11/20/2014. Findings: There are diffuse bilateral emphysematous changes more prominent in the left upper lobe not significantly changed. There is diffuse bilateral septal thickening and scattered bandlike opacities consistent with scarring and fibrosis. There is subpleural honeycombing more prominent in the lung bases. There is mild traction bronchiectasis more prominent in the medial aspect of the left lungbase. There are no infiltrates, groundglass opacification, consolidation, pleural effusion or mass. The mediastinal and hilar structures are unremarkable without evidence of mass or adenopathy. T he thyroid gland is unremarkable. There is no evidence of axillary adenopathy. Limited imaging of the upper abdomen demonstrates calcifications in the left kidney consistent with renal stones. There are degenerative changes in the thoracic spine. Impression: 1. Bilateral emphysematous changes with scarring and fibrosis as described above not significantly changed. 2. Nonobstructing left renal stones. 3. Otherwise no evidence of acute change. Final report electronically signed by:Rosetta Root MD ADDENDUM #1 These findings are compatible with idiopathic pulmonary fibrosis. Final report electronically signed by: Rosetta Root MD Addendum Signed by: ROSETTA ROOT MD 11/16/15 1112CAT [id number] 14:32:[address] [address] [id number] ------ Patient: KEO SESAY : 1940 Sex: M Address: [address] [place] [address] [place] [address] [id number] Unit #: [id number] REQ SEQ #: [id number] Location: IMAGE Room #: Ordering: NIDA COE MD Diagnosis: R10.11 RIGHT UPPER QUADRANT PAIN ------ CT ABDOMEN W/(IV ORAL) 06/09/2015 History: R10.11 RIGHT UPPER QUADRANT PAIN R10.11 RIGHT UPPER QUADRANT PAIN Multislice CT images obtained through the abdomen. Oral and IV contrast is utilized. Study is compared to 04/23/2015. Lung bases: Mild fibrotic changes in the lung bases which are stable. Coronary artery calcifications. Elevation left hemidiaphragm. Mild low-attenuation liver suggesting fatty infiltration. No focal lesions. No ductal dilatation. No cholelithiasis. Spleen, pancreas and adrenal glands are unremarkable. Urinary tract: Nonobstructive calculi in the left kidney. Large calculus in the lower pole measures 11 mm. Stable. No hydronephrosis. No hydroureter. Aorta demonstrates atherosclerosis. No aneurysm. No abdominal adenopathy. Appendix is normal. Small bowel loops are unremarkable. Question of an ulcer or small diverticulum along the fundus of the stomach. There is some mild wall thickening. The finding is nonspecific and best seen onthe coronal image. Could be air trapping within a fold but does represent a change from the prior study. Consider endoscopic assessment. No free air. Impression: 1. Question gastric wall thickening with question of an ulcer versus either a small diverticulum or artifactually air trapped within a gastric fold. Consider endoscopic correlation. Barium swallow or upper GI may also be useful inthis case because the area of question is large about 16 mm 2. Fatty infiltration of the liver. 3. Cardiomegaly and coronary atherosclerosis. 4. Mild fibrotic changes in the lung bases, which are stable. Final report electronically signed by: Jimena Gutierrez MD Signed by: JIMENA GUTIERREZ II, MD 06/09/15 1428CAT JRZF2010-13-01 14:20:[address] [address] [id number] ------ Patient: KEO SESAY : 1940 Sex: M Address: [address] [place] [address] [place] [address] [id number] Unit #: [id number] [facility] SEQ #: [id number] Location: ED Room #: Ordering: CHRIS SCHAEFFER PA-C Diagnosis: LOWER STOMACH PAINS CT ABD PELV W/IV CONTRAST ONLY Clinical Information: LOWER STOMACH PAINS Serial transaxial sections of the abdomenand pelvis were obtained following intravenous administration of 118 ml Optiray 320 contrast. Oralcontrast was not administered. Reformatted images were obtained in the coronal and sagittal planes. Comparison 07/05/2014. Abdomen: There is scarring and fibrosis in the lung bases similar to the previous scan. There is elevation of the left hemidiaphragm not significantly changed. There is a 5 mm calcification in the upper pole of the left kidney and an 11 mm calcification in the lower pole of the left kidney consistent with a renal stones not significantly changed. The liver, spleen, pancreas, adrenal glands and kidneys are otherwise unremarkable. There is no evidence of hydronephrosis. The gallbladder is unremarkable. There is no evidence of dilated bile ducts. There is no evidence of retroperitoneal or retrocrural adenopathy. There is no evidence of bowel dilatation, obstruction or intra-abdominal free air. The appendix is unremarkable. There is no evidence of a mesenteric mass or abdominal ascites. Pelvis: There are diverticular changes in the sigmoid portion ofthe colon. There is an area of focal thickening in the proximal sigmoid colon with mild surrounding induration and stranding consistent with diverticulitis. There is no evidence of an organized abscess. The prostate gland, seminal vesicles and urinary bladder are unremarkable. There is no evidence of a pelvic mass. There is no evidence of pelvic or inguinal adenopathy. There are diffuse degenerative changes in the lumbar spine. Impression: 1. Bibasilar scarring and fibrosis. 2. Nonobstructing left renal stones. 3. Sigmoid diverticulitis. Clinical correlation is suggested. Final report electronically signed by: Rosetta Root MD Signed by: ROSETTA ROOT MD 04/23/15 1416Sodium Ngpry3635-38-56 13:20:00 Test Item Value Reference Range Comments Serum sodium measurement (test code = 2951-2) 132 13 7-145 Potassium Hspxv2008-31-68 13:20:00 Test Item Value Reference Range Comments Serum potassium measurement (test code = 2823-3) 4.6 3.5-5.1 Chloride Rmplv5822-32-77 13:20:00 Test Item Value Reference Range Comments Chloride ser/plas (test code = 2075-0) 95 98-107 Carbon Dioxide Rgyjr7870-63-23 13:20:00 Test Item Value Reference Range Comments Carbon dioxide measurement (test code = 81865802) 30 22-30 Glucose Brmvf0809-71-02 13:20:00 Test Item Value Reference Range Comments Serum or plasma glucose measurement (mass/volume) 82 74-106 (test code = 2345-7) Blood Urea Jkugqrpq4890-88-42 13:20:00 Test Item Value Reference Range Comments Serum or plasma urea nitrogen measurement 21 9-20 (mass/volume) (test code = 3094-0) Dfdfemzaxn0310-53-36 13:20:00 Test Item Value Reference Range Comments Serum or plasma creatinine measurement (moles/volume) 0.91 0.66-1.25 (test code = 11013-3) Anion Pfd1493-31-38 13:20:00 Test Item Value Reference Range Comments Blood anion gap (test code = 29871-1) 12 7-16 Calcium Ocmqk4519-80-09 13:20:00 Test Item Value Reference Range Comments Serum or plasma calcium measurement (mass/volume) 9.3 8.4-10.2 (test code = 37580-0) Total Iutsurooq5269-79-16 13:20:00 Test Item Value Reference Range Comments Total bilirubin measurement (moles/volume) (test code 0.6 0.2-1.3 = 53351-2) Total Gcgeurg5992-07-32 13:20:00 Test Item Value Reference Range Comments Total protein blood (test code = 2885-2) 6.6 6.3-8.2 Ftvttrs1048-47-61 13:20:00 Test Item Value Reference Range Comments Serum or plasma albumin measurement (mass/volume) 3.6 3.5-5.0 (test code = 1751-7) Apuhvamv8975-87-36 13:20:00 Test Item Value Reference Range Comments Serum globulin measurement (test code = 160201680) 3.0 1.2-3.2 Albumin/Globulin Xayge7936-88-08 13:20:00 Test Item Value Reference Range Comments Serum or plasma albumin/globulin mass ratio (test code 1.2 1.1-2.5 = 1759-0) LD Kzzqc3871-82-34 13:20:00 Test Item Value Reference Range Comments Interpretation of serum or plasma lactate 475 313-61 8 dehydrogenase (LDH) isoenzymes measurement (nominal result) (test code = 5910-5) Aspartate Amino Transf (AST/SGOT)2014-11-30 13:20:00 Test Item Value Reference Range Comments Aspartate aminotransferase (AST) to alanine 18 5-40 aminotransferase (ALT) ratio (test code = 1916-6) Alkaline Snqlkaqiera9799-06-64 13:20:00 Test Item Value Reference Range Comments Alkaline phosphatase isoenzymes measurement (test code 83 38-126 = 11439-7) Alanine Aminotransferase (ALT/SGPT)2014-11-30 13:20:00 Test Item Value Reference Range Comments Serum or plasma alanine aminotransferase measurement 21 21.0-72.0 (enzymatic activity/volume) (test code = 1742-6) Prostate Specific Aqgxkzw1775-78-99 13:20:00 Test Item Value Reference Range Comments Serum or plasma free prostate 0.51 PS A AGE SPECIFIC RANGES: 40 - specific antigen (PSA) 49 YEARS 0.0-2.5 50 - 59 YEARS measurement (test code = 0.0-3.5 60 - 69 YEARS 0.0-4.5 18558-9) 70 - 79 YEARS 0. 0-6.5 The [employer] recommends that health care providers offer the Prostate-Specifi c Antigen (PSA) blood test and d igital rectal exam (NICKY) yearl y, to men who have at least a 10 year life expectancy, begi nning at age 50. High risk in dividuals may choose to start at a younger age, such as 45. The PSA blood test alone is no t a screen for prostate cancer. Results must be used in conju nction with the NICKY and clinical evaluation by a physician. Mean Platelet Dkweno8830-64-83 13:16:00 Test Item Value Reference Range Comments Automated blood platelet mean volume measurement (test 8.7 7.5-10.6 code = 14921-5) Neutrophils (%) (Auto)2014-11-30 13:16:00 Test Item Value Reference Range Comments Automated blood neutrophil count as percentage of 68.7 43.2-71.5 total leukocytes (test code = 770-8) Lymphocytes (%) (Auto)2014-11-30 13:16:00 Test Item Value Reference Range Comments Automated blood lymphocyte count as percentage of 16.3 16.8-43.4 total leukocytes (test code = 736-9) Monocytes (%) (Auto)2014-11-30 13:16:00 Test Item Value Reference Range Comments Automated blood monocyte count as percentage of total 12.2 4.6-12.4 leukocytes (test code = 5905-5) Eosinophils (%) (Auto)2014-11-30 13:16:00 Test Item Value Reference Range Comments Automated blood eosinophil count as percentage of 1.8 0.7-7.8 total leukocytes (test code = 713-8) Basophils (%) (Auto)2014-11-30 13:16:00 Test Item Value Reference Range Comments Automated blood basophil count as percentage of total 1.0 0.2-1.2 leukocytes (test code = 706-2) Neutrophils # (Auto)2014-11-30 13:16:00 Test Item Value Reference Range Comments Blood neutrophils automated count (number/volume) 7.1 1.9-7.2 (test code = 751-8) Lymphocytes # (Auto)2014-11-30 13:16:00 Test Item Value Reference Range Comments Automated blood lymphocyte count (number/volume) (test 1.7 1.1-2.7 code = 731-0) Monocytes # (Auto)2014-11-30 13:16:00 Test Item Value Reference Range Comments Blood monocytes automated count (number/volume) (test 1.3 0.3-0.8 code = 742-7) Eosinophils # (Auto)2014-11-30 13:16:00 Test Item Value Reference Range Comments Automated blood eosinophil count (test code = 711-2) 0.2 0.0-0.5 Basophils # (Auto)2014-11-30 13:16:00 Test Item Value Reference Range Comments Automated blood basophil count (count/volume) (test 0.1 0.0-0.1 code = 704-7) White Blood [id number] 13:16:00 Test Item Value Reference Range Comments Blood leukocytes automated count (number/volume) (test 10.4 3.6-11.1 code = 6690-2) Red Blood [id number] 13:16:00 Test Item Value Reference Range Comments Blood erythrocytes automated count (number/volume) 4.05 4.27-5.49 (test code = 789-8) [id number] 13:16:00 Test Item Value Reference Range Comments Blood hemoglobin measurement (mass/volume) (test code 13.7 12.9-16.1 = 718-7) [id number] 13:16:00 Test Item Value Reference Range Comments Automated blood hematocrit (volume fraction) (test 40.9 37.7-46.5 code = 4544-3) Mean Corpuscular [id number] 13:16:00 Test Item Value Reference Range Comments Automated erythrocyte mean corpuscular volume (test 101.0 79.3-94.8 code = 787-2) Mean Corpuscular [id number] 13:16:00 Test Item Value Reference Range Comments Automated erythrocyte mean corpuscular hemoglobin 33.8 26.8-33.2 (mass per erythrocyte) (test code = 785-6) Mean Corpuscular Hemoglobin [id number] 13:16:00 Test Item Value Reference Range Comments Automated erythrocyte mean corpuscular hemoglobin 33.4 33.5-35.5 concentration measurement (mass/volume) (test code = 786-4) Red Cell Distribution [id number] 13:16:00 Test Item Value Reference Range Comments Automated erythrocyte distribution width ratio (test 15.9 12.0-15.1 code = 788-0) Platelet [id number] 13:16:00 Test Item Value Reference Range Comments Automated blood platelet count (count/volume) (test 299 267-669 code = 777-3) Assessments Condition Name Status Diagnosis Date Treating Clinici an Surgical follow-up Active 2019-03-24 12:11:28 Left inguinal hernia Active 2019-02-24 12:27:31 Acquired trigger finger Active 2019-01-31 10:39:33 Acquired trigger finger Active 2019-01-22 12:53:58 Pain in finger Active 2019-01-22 12:53:58 Acquired trigger finger Active 2019-01-19 13:44:11 Pain in finger Active 2019-01-19 13:44:11 Acquired trigger finger Active 2019-01-16 21:32:23 Pain in finger Active 2019-01-16 21:32:23 Acquired trigger finger Active 2019-01-12 16:14:46 Pain in finger Active 2019-01-12 16:14:46 Acquired trigger finger Active 2019-01-12 11:35:20 Pain in finger Active 2019-01-12 11:35:20 Acquired trigger finger Active 2018-12-20 11:02:55 Acquired trigger finger Active 2018-11-24 07:55:15 Surgical follow-up Active 2018-11-24 07:55:24 Pain in finger Active 2018-11-11 11:49:46 Acquired trigger finger Active 2018-11-11 11:49:46 Pain in finger Active 2018-10-10 11:38:04 Acquired trigger finger Active 2018-10-10 11:38:05 Acquired trigger finger Active 2018-08-08 15:06:28 Pain in finger Active 2018-06-20 13:14:55 Acquired trigger finger Active 2018-06-20 13:30:00 Follow-up orthopedic assessment Active 2018-04-04 11:12 :23 Follow-up orthopedic assessment Active 2018-03-21 10:51 :03 Hand pain Active 2018-02-06 14:44:54 Acquired trigger finger Active 2018-02-06 15:12:27 Pain in thoracic spine Active 2018-01-17 09:27:43 Low back pain Active 2018-01-17 09:27:44 Degeneration of intervertebral disc Active 2018-01-17 0 9:27:49 Neck pain Active 2018-01-17 09:27:50 Urge incontinence of urine Active Runny nose Active Nasal obstruction Active Nasal septal deviation Active Bilateral impacted cerumen Active Nasal obstruction Active BPH with urinary obstruction Active Malignant neoplasm of bladder Active Nephrolithiasis Active Gross hematuria Active BPH with urinary obstruction Active Nocturia Active Frequency of urination Active Urge incontinence of urine Active Chronic respiratory failure with Active hypoxia Dyspnea on exertion Active CAD (coronary artery disease), pamunkey Active coronary artery CAD (coronary artery disease), pamunkey Active coronary artery Chronic respiratory failure with Active hypoxia Dyspnea on exertion Active Cor pulmonale, chronic Active CAD (coronary artery disease), pamunkey Active coronary artery Chronic respiratory failure with Active hypoxia Cor pulmonale, chronic Active Nasal septal deviation Active Nasal vestibulitis Active Nasal vestibulitis Active Recurrent sinusitis Active BPH with urinary obstruction Active Malignant neoplasm of bladder Active Nocturia Active Nephrolithiasis Active Gross hematuria Active 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 Self-catheterizes urinary bladder Active Nasal obstruction Active Nasal vestibulitis Active 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 Dyspnea Active Chronic respiratory failure with Active hypoxia Dyspnea on exertion Active Cor pulmonale, chronic Active CAD (coronary artery disease), pamunkey Active coronary artery Atrophy, testis Active Testalgia Active Malignant neoplasm of bladder Active Nephrolithiasis Active Microscopic hematuria Active 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 Urge incontinence of urine Active Malignant neoplasm of bladder Active Testalgia Active Nephrolithiasis Active 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 Urge incontinence of urine Active Gross hematuria Active Malignant neoplasm of bladder Active Gross hematuria Active Testalgia Active Malignant neoplasm of bladder Active Nephrolithiasis Active Urge incontinence of urine Active Self-catheterizes urinary bladder Active Malignant neoplasm of bladder Active Microscopic hematuria Active Chronic retention of urine Active Self-catheterizes urinary bladder Active 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 Malignant neoplasm of bladder Active Nephrolithiasis Active 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 Malignant neoplasm of bladder Active Nocturia Active Frequency of urination Active 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 Nocturia Active Frequency of urination Active Encounters Start End Encounter Admission Attending Care Care Encounter Date/Time Date/Time Type Type Clinicians Facility Department ID 2014-08-19 Inpatient ALLY REAL [facility] [id number] 00:00:00 58 2019-12-17 2019-12-19 Inpatient ED NATHANJERICA [facility] [id number] 13:47:00 13:45:00 MEL 09 2019-11-24 2019-11-24 Appointment Patrick [facility] [id number] 11:00:00 11:00:00 ; Vince Nguyen MD 2019-11-17 2019-11-17 Outpatient EL PATRICK [facility] [id number] 09:59:00 09:59:00 VINCE 46 2019-09-18 2019-09-18 Appointment TR NguyenJOJO [facility] [id number] 15:30:00 15:30:00 ; Mitra Nguyen MD 2019-09-11 2019-09-11 Outpatient EL WENDY, [facility] [id number] 09:03:00 09:03:00 MITRA Holder 2019-08-27 2019-08-27 [id number] 10:30:00 10:30:00 ; Koffi Araiza MD 2019-08-14 2019-08-14 Appointment TR NguyenJOJO [facility] [id number] 09:45:00 09:45:00 ; Mitra Nguyen MD 2019-08-09 2019-08-09 Emergency ED [place], [facility] [id number] 09:58:00 16:22:00 PILAR 11 2019-07-24 2019-07-24 Appointment TR NguyenJOJO [facility] [id number] 10:30:00 10:30:00 ; Mitra Nguyen MD 2019-07-16 2019-07-16 Appointment TR NguyenJOJO [facility] [id number] 11:15:00 11:15:00 ; Vince Nguyen MD 2019-07-09 2019-07-09 Outpatient EL YENI [facility] [id number] 10:38:00 10:38:00 MITRA 19 2019-07-03 2019-07-03 Outpatient EL PATRICK, [facility] [id number] 12:05:00 12:05:00 VINCE 96 2019-07-03 2019-07-03 Appointment [facility] [id number] 11:30:00 11:30:00 ; Beatrice Ayers MD 2019-07-01 2019-07-01 Appointment NENA Nguyen [facility] [id number] 11:00:00 11:00:00 ; Vince Nguyen MD 2019-06-24 2019-06-24 Outpatient EL RENETTA [facility] [id number] 13:17:00 13:17:00 ALESSANDRA 81 2019-06-23 2019-06-23 Appointment [facility] [id number] 13:15:00 13:15:00 ; [facility] Luciana Rivas 2019-06-04 2019-06-04 Outpatient ONEYDA PATRICK [facility] [id number] 06:42:00 06:42:00 VINCE 18 2019-05-26 2019-05-26 App[facility] [id number] 11:00:00 11:00:00 ; Vince Nguyen MD 2019-03-27 2019-04-02 Inpatient ED ELMIRA [facility] [id number] 22:32:00 12:38:00 SHARON 60 2019-03-25 2019-03-25 Appointment TR CurranUN[facility]Igor [facility] [id number] 09:45:00 09:45:00 ; [place] Curran MD 2019-03-25 2019-03-25 Appointment TR CurranJOJO [facility] [id number] 08:30:00 08:30:00 ; [place] Curran MD 2019-03-24 2019-03-24 Enma Walter [id number] _[id number] 00:00:00 00:00:00 MD Alan: Surgical Surgical [address] [place] [address], Ph. 2019-03-07 2019-03-07 Registered ONEYDA ENMA ARCEO [facility] V0 [id number] 00:05:00 00:05:00 [facility] Day [facility] 2019-02-24 2019-02-24 Enma Walter [id number] _[id number] 00:00:00 00:00:00 MD Alan: Surgical Surgical [address] [place] [address], Ph. 2019-02-21 2019-02-21 Appointment TR MunozJOJO [facility] [id number] 09:45:00 09:45:00 ; Koffi Araiza MD 2019-02-20 2019-02-20 Appointment NENA Nguyen [facility] [id number] 11:00:00 11:00:00 ; Mitra Nguyen MD 2019-02-13 2019-02-13 Emergency ED RENETTA [facility] [id number] 13:28:00 18:08:00 BHARAT Mina 2019-01-31 2019-01-31 Hong Rodrigez Caroline Caroline [id number] 00:00:00 00:00:00 Jay, Surgical Surgical 1213 PAC: 3714 Associates Associates [facility] [place] [address], Ph. 2019-01-22 2019-01-22 Zaire Myerserejohn MyersCaroline [id number] 19 00:00:00 00:00:00 Mynor, Surgical Surgical 1204 OTR/L, OTD, [facility] CHT: [address], [place] [address], Ph. 2019-01-17 2019-01-17 Zairehalle Sandovalt Caroline [id number] 19 00:00:00 00:00:00 Mynor, Surgical Surgical 1129 OTR/L, OTD, [facility] CHT: [address], [facility] [address], Ph. 2019 2019 Zaire Caroline Caroline [id number] 19 00:00:00 00:00:00 Mynor, Surgical Surgical 1127 OTR/L, OTD, [facility] CHT: [address], [place] [address], Ph. 2019-01-10 2019-01-10 Zaire Caroline Caroline [id number] 19 00:00:00 00:00:00 Mynor, Surgical Surgical 1122 OTR/L, OTD, [facility] CHT: [address], [place] [address], Ph. 2019-01-08 2019-01-08 Zairehalle Myerseret Caroline [id number] 19 00:00:00 00:00:00 Mynor, Surgical Surgical 1120 OTR/L, OTD, [facility] CHT: [address], [place] [address], Ph. 2019-01-02 2019-01-02 Appointment NENA Nguyen CETIgor [id number] 10:00:00 10:00:00 ; Mitra Nguyen MD 2018-12-30 2018-12-30 [facility] [id number] 07:33:00 09:40:00 SHARI 13 2018-12-20 2018-12-20 Hong Walter [id number] 00:00:00 00:00:00 Jay, Surgical Surgical 1101 PAC: 3714 Associates [facility] [place] [address], Ph. 2018-12-12 2018-12-12 [facility] [id number] 10:26:00 10:26:00 [place] [id number] 2018-12-05 2018-12-05 Appointment NENA Cur[facility]UN[facility] [id number] 09:00:00 09:00:00 ; [place] Curran MD 2018-11-21 2018-11-21 Hong Walter [id number] 00:00:00 00:00:00 [place], Surgical Surgical 1003 PAC: 3714 Associates [facility] [place] [address], Ph. 2018-11-07 2018-11-07 Hong Walter 6705 00:00:00 00:00:00 [place], Surgical Surgical 0919 PAC: 3714 Associates [facility] [place] [address], Ph. 2018-11-04 2018-11-04 Appointment NENA Curran CETW [id number] 13:00:00 13:00:00 ; [place] Curran MD 2018-10-10 2018-10-10 Ramirez Walter [id number] 019 00:00:00 00:00:00 MD Bashir: Surgical Surgical [address]22 [address] [facility], [place] [address], Ph. 2018-10-07 2018-10-07 Appointment NENA MunozJOJO [id number] 10:30:00 10:30:00 ; Koffi Araiza MD 2018-08-08 2018-08-08 Ramirez Myerseret [id number] 019 00:00:00 00:00:00 MD Bashir: Surgical Surgical [address]20 [address] [place] [address], Ph. 2018-07-05 2018-07-05 [facility]ment [facility]gor [id number] 10:15:00 10:15:00 ; Bob Romero MD 2018-06-20 2018-06-20 Ramirez Myerseret [id number] 019 00:00:00 00:00:00 MD Bashir: Surgical Surgical [address] [place] [address], Ph. [id number] 1 2018-06-03 2018-06-03 Outpatient [facility], [facility] [id number] 11:29:00 11:29:00 ALESSANDRA 56 2018-05-31 2018-05-31 Appointment TRJOJO ARMANDOJOJO [id number] 08:30:00 08:30:00 ; Bob Romero MD 2018-05-24 2018-05-24 Emergency ED GREEN, [facility] [id number] 12:28:00 14:16:00 BHARAT 79 2018-05-20 2018-05-20 Appointment NENA MunozJOJO [id number] 11:00:00 11:00:00 ; Koffi Araiza MD 2018-05-19 2018-05-19 Emergency ED RHODES, [facility] [id number] 02:52:00 09:45:00 AAYUSH Lackey 2018-05-08 2018-05-08 Appointment NENA Munoz [id number] 11:45:00 11:45:00 ; Koffi Araiza MD 2018-04-24 2018-04-24 Appointment NENA Munoz [id number] 08:45:00 08:45:00 ; Koffi Araiza MD 2018-04-14 2018-04-14 Emergency ED DENIA, [facility] [id number] 10:52:00 12:15:00 SARA 78 2018-04-04 2018-04-04 Mahogany Walter [id number] 19 00:00:00 00:00:00 Genaro: Surgical Surgical 0214 [address] [place] [address], Ph. 2018-01-16 2018-03-28 Outpatient CAROLINATAN, [facility] [id number] 08:30:00 07:04:00 ALESSANDRA 48 2018-03-27 2018-03-27 Appointment NENA MunozJOJO [id number] 09:00:00 09:00:00 ; Koffi Araiza MD 2018-03-21 2018-03-21 Mahogany Walter [id number] 19 00:00:00 00:00:00 Genaro: Surgical Surgical 0131 [address] [facility] [place] [address], Ph. 2018-02-06 2018-02-06 Ramirez Walter [id number] 18 00:00:00 00:00:00 [place]: 3714 Surgical Surgical 1219 [facility] [place] [address], Ph. 2018-01-17 2018-01-17 Cristo Walter [id number] 18 00:00:00 00:00:00 Guirgues: Surgical Surgical 1129 37[address] [facility] [place] [address], Ph. 2017-12-31 2017-12-31 Appointment NENA MunozTW [id number] 10:30:00 10:30:00 ; Koffi Araiza MD 2017-12-28 2017-12-28 Outpatient EL VETTICHIRA, [facility] V00 [id number] 11:16:00 11:16:00 SAJEEV 94 2017-12-19 2017-12-19 Outpatient EL VETTICHIRA, [facility] V00 [id number] 10:14:00 10:14:00 SAJEEV 31 2017-12-18 2017-12-18 Outpatient EL VETTICHIRA, [facility] V00 [id number] 12:17:00 12:17:00 SAJEEV 85 2017-10-29 2017-10-29 Emergency ED GREEN, [facility] [id number] 10:16:00 12:03:00 BHARAT 40 2017-09-12 2017-09-12 Outpatient EL BO, [facility] [id number] 11:47:00 11:47:00 RUI 15 2017-07-11 2017-07-11 Outpatient EL VETTICHIRA, [facility] [id number] 11:06:00 11:06:00 SAJEEV 10 2017-07-03 2017-07-03 Emergency ED OBIEE CONSULTANT, [facility] [id number] 07:53:00 13:59:00 CHRIS 00 2017-06-30 2017-06-30 Emergency ED SELLEY, [facility] [id number] 09:53:00 15:50:00 ALEXANDRA 14 2017-05-23 2017-05-23 Outpatient EL VETTICHIRA, [facility] [id number] 10:09:00 10:09:00 SAJEEV 78 2017-03-20 2017-03-20 Outpatient EL XIMENA, [facility] [id number] 10:45:00 10:45:00 DEVONTE 56 2014-12-07 2016-12-11 Outpatient EL BRODERICK, [facility] [id number] 13:36:00 23:59:00 RADHA 25 2016-10-27 2016-10-27 Outpatient EL VETTICHIRA, [facility] V00 [id number] 12:35:00 12:35:00 SAJEEV 80 2015-11-25 2016-04-25 Outpatient EL VETTICHIRA, [facility] V00 [id number] 08:26:00 07:38:00 SAJEEV 59 2016-03-03 2016-03-03 Outpatient EL ALLY DIAS [place] [id number] 11:06:00 11:06:00 10 2016-02-13 2016-02-13 Emergency ED RULA, [facility] [id number] 08:33:00 09:33:00 MARIA D 11 2016-02-11 2016-02-11 Emergency ED RULA, [facility] [id number] 10:03:00 15:55:00 MARIA D 67 2015-11-15 2015-11-15 Outpatient EL RENETTA, [place] [id number] 10:37:00 10:37:00 ALESSANDRA 36 2015-06-09 2015-06-09 Outpatient ONEYDA COE, [facility] [id number] 11:30:00 11:30:00 NIDA 22 2015-04-23 2015-04-23 Emergency ED RICKEY, [facility] [id number] 10:11:00 14:57:00 ALEXANDRA 79 Family History Family Member Diagnosis Comments Start Date Stop Date Mother Family history of Pancreatic cancer Mother Family history of of parent Father Family history of Hepatitis C Father Family history of of parent Immunizations Ordered Filled Immunization Date Status Comments Refus al Reason Immunization Name Name influenza, 2017-10-20 Completed unspecified 00:00:00 formulation pneumococcal, 2016-02-20 Completed unspecified 00:00:00 formulation Vaccination Unknown Completed Payers Payer Name Policy Type Policy Number Effective Date Expiration D ate Plan of Treatment Planned Activity Planned Date Details Comments Future Scheduled Test [code = ] Future Scheduled Test [code = ] Future Scheduled Test [code = ] Future Scheduled Test [code = ] Future Scheduled Test [code = ] Future Scheduled Test [code = ] Future Scheduled Test [code = ] Future Scheduled Test [code = ] Social History Social Habit Start Date Stop Date Comments N - 15 pk YR hx 2019-07-09 11:12:00 Y - occasionally, "sometimes two drink per 2019-07-09 11:12:00 day" Smoking Status Start Date Stop Date Current every day smoker 2019-12-19 08:00:00 Heavy Tobacco Smoker Former Smoker Never smoked tobacco (finding) Smokes tobacco daily (finding) Social History Observation Description Sex Male Vital Signs Vital Name Observation Time Observation Value Comments WEIGHT 2019-12-19 04:55:00 72.4000 kg HEIGHT 2019-12-19 04:55:00 167.057024 cm WEIGHT 2019-12-18 05:42:00 71.9000 kg HEIGHT 2019-12-18 05:42:00 167.181124 cm WEIGHT 2019-12-17 15:07:00 70.7000 kg HEIGHT 2019-12-17 15:07:00 167.936897 cm WEIGHT 2019-12-17 12:06:00 77.0000 kg HEIGHT 2019-12-17 12:06:00 167.275551 cm WEIGHT 2019-08-09 10:09:00 73.5000 kg HEIGHT 2019-08-09 10:09:00 167.144121 cm WEIGHT 2019-07-09 11:12:00 73.0000 kg HEIGHT 2019-07-09 11:12:00 172.004414 cm WEIGHT 2019-06-04 07:06:00 73.0000 kg HEIGHT 2019-06-04 07:06:00 167.857956 cm WEIGHT 2019-04-02 05:12:00 80.0000 kg HEIGHT 2019-04-02 05:12:00 167.707322 cm WEIGHT 2019-04-01 04:29:00 80.6000 kg HEIGHT 2019-04-01 04:29:00 167.829146 cm WEIGHT 2019-03-31 04:34:00 78.1000 kg HEIGHT 2019-03-31 04:34:00 167.989242 cm WEIGHT 2019-03-28 05:42:00 79.8000 kg HEIGHT 2019-03-28 05:42:00 167.272371 cm WEIGHT 2019-03-27 20:34:00 82.2000 kg HEIGHT 2019-03-27 20:34:00 168.435081 cm BP Diastolic 2019-03-24 00:00:00 70 mm[Hg] Height 2019-03-24 00:00:00 66 [in_i] BMI (Body Mass Index) 2019-03-24 00:00:00 26.6 kg/m2 BP Systolic 2019-03-24 00:00:00 119 mm[Hg] Body Weight 2019-03-24 00:00:00 165 [lb_av] WEIGHT 2019-03-05 08:54:00 76.8 kg HEIGHT 2019-03-05 08:54:00 167.504626 cm WEIGHT 2019-02-24 10:59:00 74.817527 kg HEIGHT 2019-02-24 10:59:00 167.530013 cm BP Diastolic 2019-02-24 00:00:00 70 mm[Hg] Height 2019-02-24 00:00:00 66 [in_i] BMI (Body Mass Index) 2019-02-24 00:00:00 26.6 kg/m2 BP Systolic 2019-02-24 00:00:00 98 mm[Hg] Body Weight 2019-02-24 00:00:00 165 [lb_av] WEIGHT 2019-02-13 13:59:00 75.5000 kg HEIGHT 2019-02-13 13:59:00 170.492018 cm BP Diastolic 2019-01-31 00:00:00 85 mm[Hg] Height 2019-01-31 00:00:00 66 [in_i] BMI (Body Mass Index) 2019-01-31 00:00:00 26.6 kg/m2 BP Systolic 2019-01-31 00:00:00 144 mm[Hg] Body Weight 2019-01-31 00:00:00 165 [lb_av] WEIGHT 2018-12-30 07:42:00 75.0000 kg HEIGHT 2018-12-30 07:42:00 167.279632 cm BP Diastolic 2018-12-20 00:00:00 72 mm[Hg] Height 2018-12-20 00:00:00 66 [in_i] BMI (Body Mass Index) 2018-12-20 00:00:00 26.6 kg/m2 BP Systolic 2018-12-20 00:00:00 104 mm[Hg] Body Weight 2018-12-20 00:00:00 165 [lb_av] BP Diastolic 2018-11-21 00:00:00 64 mm[Hg] Height 2018-11-21 00:00:00 66 [in_i] BMI (Body Mass Index) 2018-11-21 00:00:00 26.6 kg/m2 BP Systolic 2018-11-21 00:00:00 107 mm[Hg] Body Weight 2018-11-21 00:00:00 165 [lb_av] BP Diastolic 2018-11-07 00:00:00 68 mm[Hg] Height 2018-11-07 00:00:00 66 [in_i] BMI (Body Mass Index) 2018-11-07 00:00:00 26.7 kg/m2 BP Systolic 2018-11-07 00:00:00 116 mm[Hg] Body Weight 2018-11-07 00:00:00 165.4 [lb_av] BP Diastolic 2018-10-10 00:00:00 87 mm[Hg] Height 2018-10-10 00:00:00 66 [in_i] BMI (Body Mass Index) 2018-10-10 00:00:00 26.1 kg/m2 BP Systolic 2018-10-10 00:00:00 155 mm[Hg] Body Weight 2018-10-10 00:00:00 162 [lb_av] BP Diastolic 2018-08-08 00:00:00 82 mm[Hg] Height 2018-08-08 00:00:00 66 [in_i] BMI (Body Mass Index) 2018-08-08 00:00:00 26.1 kg/m2 BP Systolic 2018-08-08 00:00:00 131 mm[Hg] Body Weight 2018-08-08 00:00:00 162 [lb_av] BP Diastolic 2018-06-20 00:00:00 77 mm[Hg] Height 2018-06-20 00:00:00 66 [in_i] BMI (Body Mass Index) 2018-06-20 00:00:00 26.1 kg/m2 BP Systolic 2018-06-20 00:00:00 117 mm[Hg] Body Weight 2018-06-20 00:00:00 162 [lb_av] WEIGHT 2018-05-24 12:28:00 75.0000 kg HEIGHT 2018-05-24 12:28:00 167.392592 cm WEIGHT 2018-05-19 02:52:00 78.0000 kg HEIGHT 2018-05-19 02:52:00 167.832705 cm WEIGHT 2018-04-14 10:52:00 77.5000 kg HEIGHT 2018-04-14 10:52:00 167.160566 cm BP Diastolic 2018-04-04 00:00:00 96 mm[Hg] Height 2018-04-04 00:00:00 66 [in_i] BMI (Body Mass Index) 2018-04-04 00:00:00 26.1 kg/m2 BP Systolic 2018-04-04 00:00:00 132 mm[Hg] Body Weight 2018-04-04 00:00:00 162 [lb_av] WEIGHT 2018-01-16 08:30:00 75.6000 kg HEIGHT 2018-01-16 08:30:00 167.412717 cm WEIGHT 2018 12:17:00 75.6000 kg HEIGHT 2018 12:17:00 167.057716 cm Height 2018-03-21 00:00:00 66 [in_i] BMI (Body Mass Index) 2018-03-21 00:00:00 26.1 kg/m2 Body Weight 2018-03-21 00:00:00 162 [lb_av] BP Diastolic 2018-02-06 00:00:00 76 mm[Hg] Height 2018-02-06 00:00:00 66 [in_i] BMI (Body Mass Index) 2018-02-06 00:00:00 26.1 kg/m2 BP Systolic 2018-02-06 00:00:00 130 mm[Hg] Body Weight 2018-02-06 00:00:00 162 [lb_av] BP Diastolic 2018-01-17 00:00:00 69 mm[Hg] Height 2018-01-17 00:00:00 66 [in_i] BMI (Body Mass Index) 2018-01-17 00:00:00 26.1 kg/m2 BP Systolic 2018-01-17 00:00:00 115 mm[Hg] Body Weight 2018-01-17 00:00:00 162 [lb_av] WEIGHT 2017-10-29 10:16:00 74.5500 kg HEIGHT 2017-10-29 10:16:00 [id number] cm WEIGHT 2017-07-03 07:53:00 80.4500 kg HEIGHT 2017-07-03 07:53:00 170.207215 cm WEIGHT 2017-06-30 09:53:00 80.6000 kg HEIGHT 2017-06-30 09:53:00 170.731677 cm WEIGHT 2014-12-07 13:36:00 80.200 kg HEIGHT 2014-12-07 13:36:00 170.30 cm WEIGHT 2015-11-25 08:26:00 86.100 kg HEIGHT 2015-11-25 08:26:00 172.877457 cm WEIGHT 2016-02-13 08:33:00 92.800 kg HEIGHT 2016-02-13 08:33:00 [id number] cm WEIGHT 2016-02-11 10:03:00 91.700 kg WEIGHT 2015-04-23 10:11:00 87.2 kg Systolic blood pressure 2019-11-24 11:03:00 130 mm[Hg] Loca tion: RUE; Position: Sittin g Diastolic blood pressure 2019-11-24 11:03:00 82 mm[Hg] Loc ation: RUE; Position: Sittin g Weight 2019-11-24 11:03:00 148.2 [lb_av] Body mass index (BMI) 2019-11-24 11:03:00 22.53 kg/m2 [Ratio] Heart Rate 2019-11-24 11:03:00 92 /min Location: R Radial; Quality: Regular Respiratory rate 2019-11-24 11:03:00 24 /min Quality: Di fficult O2 SAT 2019-11-24 11:03:00 91 % Source: [place] Cann[place] Weight 2019-08-09 10:09:00 162.04 [lb_av] BMI (Body Mass Index) 2019-08-09 10:09:00 26.0 kg/m2 Weight 2019-04-02 05:12:00 176.37 [lb_av] BMI (Body Mass Index) 2019-04-02 05:12:00 28.0 kg/m2 Weight 2019-02-13 13:59:00 166.45 [lb_av] BMI (Body Mass Index) 2019-02-13 13:59:00 26.0 kg/m2 Weight 2018-12-30 07:42:00 165.35 [lb_av] BMI (Body Mass Index) 2018-12-30 07:42:00 26.0 kg/m2 Hospital Discharge Instructions NameDatesDetailsInstructions not documentedNameDatesDetailsInstructions not documentedAdditional Instructions Discharge Instructions Nursing Discharge Assessment Cognitive Status: Alert,Appropriate, Awake, Follows Commands Functional Status: Ambulates /c Assist., Eats Independently, Bathes /c Assistance, Dresses Independently, Toilets /c Assistance, Medicates Self Indepen., Appropriate for Age Is your patient leaving the hospital with any of these: None Plan of Care #1 Problem:: Pulmonary Fibrosis with acute on chronic respiratory failure Plan:: Take medications as prescribed. Follow up with primary care provider and pulmonary medicine. Goal:: Stable breathing and supplemental oxygen use. Level Of Pain At Discharge: 0 Pain Scale Does Patient Have Valuables In Possession: Yes Medication or Valuables Kept With Patient: CELLPHONE, CLOTHING, EYEGLASSES (WIRE FRAMED), BACKPACK ValuablesPrev Returned- Visitor: N/A Meds Returned from Pharmacy: N/A Pt Specific Meds Returned: N/A RT Pt Specific Meds Returned: in pcu box Valuables Returned Comment: CLOTHES AND CELL PHONEJ WITH GLASSES AREALL PRESENT UPON ARRIVAL TO ROOM Physician Documentation Discharge Diagnoses: (1) Acute and chronic respiratory failure (2) Pulmonary fibrosis (3) Hypertension (4) Hyperlipidemia (5) Obstructive sleep a pnea (6) Essential and other specified forms of tremor (7) Bipolar disorder (8) PTSD (post-traumaticstress disorder) (9) Skin cancer Condition: Serious Height (Feet): 5 Height (Inches): 6.00 Weight (Kilograms): 80.0000 Diet: Heart Healthy Low Salt Wound Care Instructions: N/A General: As Tolerated1. Pain in finger 2. Acquired trigger finger Discussion Note Surgery Counseling Trigger Finger Releas e: Right index finger, right middle finger, November 05, 2018 LOCAL We discussed various methods oftreatment for this diagnosis, including both non- surgical and surgical treatment options. The procedure was discussed in detail, including rationale for proceeding with the procedure, specifics of the t echnical aspects of the procedure, and the expected postoperative course including the possible needfor activity modification, therapy, and duration of expected recovery. Risks to surgery include: pain, numbing, scar, infection, loss of motion, nerve or vascular injury, stiffness, blood loss, reoccurrence, re-operation, these have been discussed along with the success rates (expected outcomes) of the procedure, and risk of anesthesia were discussed. Patient fully understands that there are no guarantees with surgical intervention. The patient voiced understanding of the procedure and risks, and the decision for surgery was made today. Patient educational handouts: No information available. 1. Acquired trigger finger Discussion Note Doing very well following right trigger thumb release, small trigger finger release He states that he has subsequently developed some stiffness in the index and the long finger. If this gets worse he will follow up. All his questions have been answered. Patient educational handouts: No information available.1. Pain in finger 2. Acquired trigger finger Discussion Note Surgery Counseling Trigger RIGHT Thumb Release, RIGHT small finger trigger release 07/09/2018 [facility] LOCAL anesthesia We discussed various methods of treatment for this diagnosis, including both non-surgical and surgical treatment options. Theprocedure was discussed in detail, including rationale for proceeding with the procedure, specifics of the technical aspects of the procedure, and the expected postoperative course including the possible need for activity modification, therapy, and duration of expected recovery. Risks to surgery include: pain, numbing, scar, infection, loss of motion, nerve or vascular injury, stiffness, blood loss, reoccurrence, re-operation, these have been discussed along with the success rates (expected outcomes) of the procedure, and risk of anesthesia were discussed. Patient fully understands that there are no guarantees with surgical intervention. The patient voiced understanding of the procedure and risks,and the decision for surgery was made today. Patient educational handouts: No information available.1. Follow-up orthopedic assessment Discussion Note Doing well. Sutures removed, Steri-Strips placed.Would keep this covered for another 5 days, no soaking or submerging. Skin healing well but there isdry skin over the top. Gentle scar massage. Work on range of motion as appropriate and this is reviewed with him. We will follow- up in 2 weeks to make sure this has completely healed, certainly call orreturn sooner with any issues. Patient educational handouts: No information available. 1. Pain in thoracic spine 2. Low back pain 3. Degeneration of intervertebral disc tizanidine 4 mg tablet Pain Cream Option 1 [facility] 4. Neck pain Discussion Note I discussed with patient the findings which point towards arthritic changes as the cause for the symptoms at this point I don'thave a good surgical solution for this problem and I would not recommend surgery. I would recommend continued aggressive home exercise program. Patient educational handouts: No information available.
== END 2020-01-01 13:14 | disposition home or self-care (01) ==
LOC: ER 22:10
DX: R06.02 Shortness of breath (principal); J44.9 Chronic obstructive pulmonary disease, unspecified; F17.200 Nicotine dependence, unspecified, uncomplicated; Z99.81 Dependence on supplemental oxygen; I11.0 Hypertensive heart disease with heart failure; I50.9 Heart failure, unspecified
CPT/HCPCS: 93005; 99285; 36415; 85025; 80053; 84484; 82803; 83880; 71045; 93010; A9270